=== PATIENT | female | born 1945 | race Hispanic/Latino ===

== ENCOUNTER → 2020-08-10 | Emergency (ER) | payer MEDICARE ==
[~2020-08-10] MED LIST: ASPIRIN 325 MG TABLET PO ONE; CEPH500B PO; LISI20TA24 PO; MONT10TA32 PO; NITROGLYCERIN 0.4 MG SL TAB SL PRN; NITROGLYCERIN 1GM/1 INCH PACKET TD ONE; OSEL30CA PO
[2020-08-10 21:22] VITALS: BP 160/76
[2020-08-10 21:36] LABS: BASOPHILS % (AUTO) 0.7 % (0.0-5.0); EOSINOPHILS % (AUTO) 2.6 % (0.0-8.0); HEMATOCRIT 43.7 % (36-48); LYMPHOCYTES % (AUTO) 41.1 % (21.0-51.0); MEAN CORPUSCULAR HEMOGLOBIN 31.7 pg (27.0-33.0); MEAN CORPUSCULAR HGB CONC 34.3 g/dL (32.0-36.0); MEAN CORPUSCULAR VOLUME 92.4 fL (79-99); MONOCYTES % (AUTO) 12.1 % (3.0-13.0); NEUTROPHILS % (AUTO) 43.3 % (40.0-77.0); PLATELET COUNT (AUTO) 125 K/uL (130-400); RED BLOOD CELL COUNT(AUTO) 4.73 MIL/uL (4.00-5.50); RED CELL DISTRIBUTION WIDTH 12.4 % (11.0-15.5); WHITE BLOOD COUNT (AUTO) 5.9 K/uL (4.8-10.8)
[2020-08-10 21:47] LABS: CARBON DIOXIDE 29 mmol/L (21-32); CHLORIDE 101 mmol/L (101-111); CREATININE 0.6 mg/dL (0.5-1.5); GLOMERULAR FILTR. RATE CALC 104 mL/min (>60); GLUCOSE,RANDOM 270 mg/dL (70-105); POTASSIUM 3.6 mmol/L (3.5-5.1); SODIUM SERUM 137 mmol/L (136-145); UREA NITROGEN, BLOOD 8 mg/dL (7-18)
[2020-08-10 21:51] LABS: INR 1.05 (0.85-1.15); PROTHROMBIN TIME 11.4 SEC (9.6-11.6)
[2020-08-10 21:55] LABS: ALANINE AMINOTRANSFERASE 28 U/L (12-78); ALBUMIN 3.4 g/dL (3.5-5.0); ASPARTATE AMINOTRANSFERASE 23 U/L (10-37); BILIRUBIN,TOTAL 0.6 mg/dL (0.2-1.0); CREATINE KINASE, TOTAL 31 U/L (21-232); MYOGLOBIN 13 ng/mL (10-92); TOTAL PROTEIN, SERUM 7.7 g/dL (6.0-8.3); TROPONIN I < 0.04 ng/mL (0.00-0.06)
[2020-08-10 22:00] LABS: B-TYPE NATRIURETIC PEPTIDE 53 pg/mL (0-100)
[2020-08-10 22:05] VITALS: BP 168/66
== END ==
LOC: EDH 21:08
DX: R07.89 Other chest pain (principal); R73.9 Hyperglycemia, unspecified; F03.90 Unspecified dementia, unspecified severity, without behavioral disturbance, psychotic disturbance, mood disturbance, and anxiety; Z88.5 Allergy status to narcotic agent; Z79.82 Long term (current) use of aspirin; Z79.899 Other long term (current) drug therapy
CPT/HCPCS: 36415; 71045; 80053; 82550; 83874; 83880; 84484; 85025; 85610; 93005

== ENCOUNTER → 2022-03-20 | Outpatient (CLI) | payer MEDICARE ==
[~2022-03-20] MED LIST changes: -ASPIRIN 325 MG TABLET PO ONE; +MONT-39 PO; -MONT10TA32 PO; -NITROGLYCERIN 0.4 MG SL TAB SL PRN; -NITROGLYCERIN 1GM/1 INCH PACKET TD ONE
== END | disposition home or self-care (01) ==
LOC: RAH 08:59
PROVIDERS: ATTEND Psychiatry & Neurology Neurology
DX: F03.90 Unspecified dementia, unspecified severity, without behavioral disturbance, psychotic disturbance, mood disturbance, and anxiety (principal)
CPT/HCPCS: 70551

== ENCOUNTER 2022-11-02 09:20 | Emergency (ER) | payer OTHER, MEDICARE ==
[~2022-11-02] VITALS: Ht 149.9 cm; Wt 67.1 kg
[2022-11-02] MEDS ORDERED: ACETAMINOPHEN 325 MG TAB PO ONE (11:30)
[2022-11-02 12:30] VITALS: BP 124/70; PULSE 70; RESP 18; O2SAT 98
== END 2022-11-02 12:49 | disposition home or self-care (01) ==
LOC: EDH 09:20
DX: S16.1XXA Strain of muscle, fascia and tendon at neck level, initial encounter (principal); S00.03XA Contusion of scalp, initial encounter; S60.221A Contusion of right hand, initial encounter; S80.11XA Contusion of right lower leg, initial encounter; I10 Essential (primary) hypertension; E11.9 Type 2 diabetes mellitus without complications; E78.00 Pure hypercholesterolemia, unspecified; M47.812 Spondylosis without myelopathy or radiculopathy, cervical region; Z79.899 Other long term (current) drug therapy; Z88.5 Allergy status to narcotic agent; W01.0XXA Fall on same level from slipping, tripping and stumbling without subsequent striking against object, initial encounter; Y93.89 Activity, other specified; Y92.89 Other specified places as the place of occurrence of the external cause; Y99.8 Other external cause status
CPT/HCPCS: 70450; 72125; 73130; 73502; 73610

== ENCOUNTER 2024-07-10 10:28 | Inpatient (IN) | payer OTHER, MEDICARE ==
[~2024-07-10] VITALS: Ht 157.5 cm; Wt 71.0 kg
--- NOTE | 2024-07-10 11:05 | ERN ---
General Chief Complaint: Low Back Pain/Injury Stated Complaint: BACK PAIN Time Seen by MD: 10:49 Source: patient, family, EMS History of Present Illness Initial Comments PATIENT IS A 79-YEAR-OLD FEMALE BROUGHT IN BY EMS DUE TO LOWER BACK AND UPPER BACK PAIN. PER EMS PATIENT HAS BEEN HAVING BACK PAIN SINCE SHE FELL DOWN. SHE DOES HAS A HISTORY OF DEMENTIA IN HIS CURRENTLY AT A INTERMEDIATE HAS BEEN THERE FOR THREE WEEKS. ALONG WITH THE DISCOMFORT PATIENT HE WAS COMPLAINING OF A COUGH. Allergies: Coded Allergies: codeine (Unverified Allergy, Unknown, 07/01/16) Home Meds Active Scripts Oseltamivir Phosphate (Tamiflu) 30 Mg Capsule, 30 MG PO DAILYBKFST for 5 Days, #5 CAP Prov:ZINA PERRY MD 05/01/19 Cephalexin Monohydrate (Keflex) 500 Mg Cap, 500 MG PO TID for 5 Days, #15 CAP Prov:ZINA PERRY MD 05/01/19 Reported Medications Montelukast Sodium (Montelukast Sodium) 10 Mg Tablet, 10 MG PO DAILY, TAB 04/30/19 Lisinopril (Lisinopril) 20 Mg Tablet, 20 MG PO DAILY, TAB 04/30/19 Past Medical History Past Medical History: Dementia, Diabetes-Type II, High Cholesterol Medical History Other: THROMBOCYTOPENIA Past Surgical History: Unknown Family History Family History: Negative Social History Social History: Negative Female( History) History: Not Applicable ROS Dictation CONSTITUTIONAL: NO CHILLS, NO FEVER, NO WEAKNESS, NO DIAPHORESIS, NO MALAISE. HEAD/FACE: NO SIGNS OF TRAUMA. EENT: NO EYE PAIN, NO BLURRED VISION, NO TEARING, NO DOUBLE VISION, NO EAR PAIN, NO EAR DISCHARGE, NO NOSE PAIN, NO NASAL CONGESTION, NO THROAT PAIN, NO THROAT SWELLING, NO MOUTH PAIN. RESPIRATORY: NO COUGH, NO ORTHOPNEA, NO SOB, NO STRIDOR, NO WHEEZING. CARDIOVASCULAR: NO CHEST PAIN, NO EDEMA, NO PALPITATIONS, NO SYNCOPE. GASTROINTESTINAL/ABDOMINAL: NO ABDOMINAL PAIN, NO CONSTIPATION, NO DIARRHEA, NO NAUSEA, NO VOMITING. GENITOURINARY: NO ABNORMAL DISCHARGE, NO DYSURIA, NO FREQUENT URINATION, NO HEMATURIA. NO COMPLAINTS OF PAIN IN THE GENITALS. MUSCULOSKELETAL: BACK PAIN, NO GOUT, NO JOINT PAIN, NO JOINT SWELLING, MUSCLE PAIN, NO MUSCLE STIFFNESS, NO NECK PAIN. INTEGUMENTARY: NO CHANGE IN COLOR, NO CHANGE IN HAIR/NAILS, NO DRYNESS, NO LESION, NO LUMPS, NO RASH. NEUROLOGICAL/PSYCH: NO ANXIETY, NOT DEPRESSED, NO EMOTIONAL PROBLEM, NO HEADACHE, NO NUMBNESS, NO PRE-EXISTING DEFICIT, NO HISTORY OF SEIZURES, NO TREMORS, NO WEAKNESS. HEMATOLOGIC/LYMPHATIC: NOT ANEMIC, NO HISTORY OF BLOOD CLOTS, NO APPARENT BLEEDING, NO BRUISING, GLANDS NOT SWOLLEN. ALL SYSTEMS NEGATIVE, EXCEPT NOTED. Physical Exam Physical Exam Dictation VITAL SIGNS: REVIEWED. GENERAL APPEARANCE: ALERT, ORIENTED X3, NO ACUTE DISTRESS, OBESE. HEAD AND FACE: NON-TRAUMATIC. EYES: PERRL, PINK CONJUNCTIVAS, EYELID NO TRAUMA, ANTERIOR CHAMBER CLEAR. EARS: PINNAS INTACT AND NO SIGNS OF TRAUMA OR ERYTHEMA. EAR CANALS CLEAR AND NO DISCHARGE. TMS NO ERYTHEMA. NOSE: NO DISCHARGE, NO BLEEDING. OROPHARYNX: MOUTH NORMAL, TEETH NO CARIES, TONGUE PINK. PHARYNX CLEAR, NO ERYTHEMA. TONSILS NO EXUDATES, NO ABSCESSES NOTED. MUCOUS MEMBRANE MOIST. NECK: SUPPLE, NON-TENDER, NO THYROMEGALY, NO MASSES, NO JVD, NO BRUITS. BREAST: DEFERRED. CHEST: NO TENDERNESS, NO CREPITUS, NO PARADOXICAL MOVEMENT, NO RETRACTIONS. LUNGS: CLEAR, WELL-VENTILATED, SYMMETRIC, NO RALES, NO WHEEZING, NO RHONCHI, NO STRIDOR, GOOD BREATH SOUNDS BILATERALLY. HEART: REGULAR RATE, REGULAR RHYTHM, NO MURMUR, NO GALLOPS. VASCULAR: NO PERIPHERAL EDEMA. ABDOMEN: SOFT, POSITIVE BOWEL SOUNDS, NONDISTENDED, NO GUARDING, LEFT UPPER ABDOMINAL TENDERNESS ON PALPATION, NO REBOUND, NO MASSES NO HEPATOMEGALY, NO SP LENOMEGALY, NO TEMPLETON'S SIGN, NO HERNIAS. RECTAL: DEFERRED. GENITAL: DEFERRED. NEUROLOGICAL: NORMAL SPEECH, GROSS MOTOR FUNCTION INTACT, GROSS SENSORY FUNCTION INTACT. MUSCULOSKELETAL: NECK NONTENDER, FULL RANGE OF MOTION, TRIPLE AIR VALVE TESTER, FULL RANGE OF MOTION. EXTREMITIES: NONTENDER, FULL RANGE OF MOTION. SKIN: COLOR PINK, DRY, NO TURGOR, NO RASH, NO LACERATIONS, NO ABRASIONS, NO CONTUSIONS. LYMPHATICS: DEFERRED. Results Laboratory and Microbiology Lab and Micro Result Laboratory Tests Test 07/10/24 10:55 07/10/24 12:28 White Blood Count 5.3 K/uL (4.8-10.8) Red Blood Count 3.65 MIL/uL (4.00-5.50) L Hemoglobin 12.7 g/dL (12.0-16.0) Hematocrit 36.2 % (36-48) Mean Corpuscular Volume 99.2 fL (79-99) H Mean Corpuscular Hemoglobin 34.8 pg (27.0-33.0) H Mean Corpuscular Hemoglobin Concent 35.1 g/dL (32.0-36.0) Red Cell Distribution Width 13.9 % (11.0-15.5) Platelet Count 110 K/uL (130-400) L Mean Platelet Volume 11.9 fL (7.5-10.5) H Immature Granulocyte % (Auto) 0.2 % (0-1) Neutrophils (%) (Auto) 38.5 % (40.0-77.0) L Lymphocytes (%) (Auto) 45.6 % (21.0-51.0) Monocytes (%) (Auto) 10.4 % (3.0-13.0) Eosinophils (%) (Auto) 4.7 % (0.0-8.0) Basophils (%) (Auto) 0.6 % (0.0-5.0) Neutrophils # (Auto) 2.0 K/uL (1.8-7.7) Lymphocytes # (Auto) 2.4 K/uL (1.0-4.8) Monocytes # (Auto) 0.6 K/uL (0.1-1.0) Eosinophils # (Auto) 0.25 K/uL (0.00-0.70) Basophils # (Auto) 0.03 K/uL (0.00-0.20) Absolute Immature Granulocyte (auto 0.01 K/uL (0-1) Nucleated Red Blood Cells 0.0 % (0.0-0.19) Prothrombin Time 11.6 SEC (9.6-11.6) Prothromb Time International Ratio 1.11 (0.85-1.15) Activated Partial Thromboplast Time 27.8 SEC (26.3-35.5) Sodium Level 136 mmol/L (136-145) Potassium Level 4.1 mmol/L (3.5-5.1) Chloride Level 104 mmol/L (101-111) Carbon Dioxide Level 26 mmol/L (21-32) Blood Urea Nitrogen 12 mg/dL (7-18) Creatinine 0.7 mg/dL (0.5-1.0) Glomerular Filtration Rate Calc 88 mL/min (>90) Random Glucose 154 mg/dL (70-105) H Total Calcium 8.8 mg/dL (8.5-10.1) Total Creatine Kinase 66 U/L (21-232) # Troponin I High Sensitivity 5 ng/L (4-50) B-Type Natriuretic Peptide 132 pg/mL (0-100) H Urine Color YELLOW (YELLOW) Urine Appearance CLEAR (CLEAR) Urine pH 5.5 (5.0-8.0) Urine Specific [place] 1.016 (1.001-1.031) Urine Protein NEGATIVE mg/dL (NEGATIVE) Urine Glucose (UA) NEGATIVE mg/dL (NEGATIVE) Urine Ketones NEGATIVE mg/dL (NEGATIVE) Urine Occult Blood NEGATIVE (NEGATIVE) Urine Nitrate NEGATIVE (NEGATIVE) Urine Bilirubin NEGATIVE mg/dL (NEGATIVE) Urine Urobilinogen 6 mg/dL (0.2-1.0) H Urine Leukocyte Esterase NEGATIVE Gigi/uL Urine RBC 2-5 /HPF (0-1) H Urine WBC 2-5 /HPF (0-1) H Urine Squamous Epithelial Cells RARE /HPF (0-2) Urine Bacteria None /HPF (None Seen) Labs Reviewed?: Yes EKG/XRAY/US/CT/MRI EKG Comment 07/10/2024 TIME 10:53 A.M. VENTRICULAR RATE 75 SINUS RHYTHM [place] [address] WAVE ELEVATION OR DEPRESSION CT Scan Comment [address] [address] IMAGING REPORT Signed PATIENT: ADAM LUCIO MR#: [id number] : 1945 SEX: F AGE: 79 LOCATION: [facility] ORDER 15 STATUS: REG ER REPORT#: [id number] SERVICE REASON: LUQ PAIN ORDERING PHYSICIAN: RISHI CARDOZA MD PROCEDURE: ABD PEL W - CT ABDOMEN/PELVIS W/CONTRAST CT ABDOMEN/PELVIS W/CONTRAST HISTORY: Left lower abdominal pain COMPARISON: None TECHNIQUE: Multiple sequential axial images of the abdomen and pelvis were obtained from the dome of the diaphragm through symphysis pubis. Patient was given 75 cc of Omnipaque through intravenous route. Oral contrast was not given. FINDINGS: No pleural effusion is seen bilaterally. There is no evidence of parenchymal disease or pulmonary nodule of the visualized lower lungs. Degenerative changes of the thoracolumbar spine are present. The heart is not enlarged. Liver measures 15 cm. Small hiatal hernia is seen. There are varices. Gallbladder is distended with gallstones. There is diverticulosis. The liver, spleen, adrenal glands and pancreas are unremarkable. There is no evidence of hydronephrosis bilaterally. No evidence of renal stone is seen. Fecal material is seen in the colon. There are normal size retroperitoneal and mesenteric lymph nodes. No ascites is seen. Atherosclerotic changes are present. Pelvic sidewalls are symmetric bilaterally. Bladder is well distended without wall thickening. Tiny amount of air collection is seen in the bladder. IMPRESSION: 1. Varices. Distended gallbladder with gallstones. Diverticulosis. CT was performed with one or more following dose reduction techniques: automated exposure control, adjustment of the mA and kv according to patient's size, or use of a iterative reconstruction technique. DICTATED BY: TRINI LOPEZ MD DATE: 07/10/24 1517 ELECTRONICALLY SIGNED BY: TRINI LOPEZ MD DATE: 07/10/24 1524 [facility] MDM: Differential diagnosis: Fall, abdominal pain, generalized body weakness, Rationale: Tests considered and ordered secondary to shared decision making include: labs, ECG and radiology Previous outside records reviewed: Old ER visits. Risk of complication and/or morbidity or mortality of patient management: None Medications-Per medication reconciliation Need for hospitalization: Patient does meet criteria for hospitalization. Need for emergency major/minor surgery: No There are no social concerns with this patient. Prescription drug management Prescriptions will include symptomatic care Patient's prior external medical records from other ER visits were reviewed by me as indicated. Prior testing and results from previous visits were reviewed. Prior tests were taken into account with medical decision making and resource utilization, independent historian/historians were used to obtain complete medical history. I independently interpreted the test that were performed, results were reviewed by me and considered findings on radiology if ordered. Medical management and examination interpretation discussions were had by me with other qualified healthcare professionals as indicated for the patient's care.Patient is a 79-year-old female coming in to be evaluated for left-sided abdominal pain. She states he fell down while she was being bathed and facility got an x-ray of her back no acute findings were present other imaging studies were taken no acute findings were present . With the pain patient will be admitted for ongoing evaluation and management of uncontrolled pain. Patient will be admitted under the care of hospitalist group for ongoing management. ED Course Orders Procedure Category Date Status Time 12 Lead Ekg Tracing- EKG 07/10/24 Complete Technical 10:59 Cbc With Differential LAB 07/10/24 Complete 11:01 Prothrombin Time With LAB 07/10/24 Complete INR 11:01 B-Type Natriuretic LAB 07/10/24 Complete Peptide 11:01 Chest 1vw RAD 07/10/24 Resulted 11:01 Creatine Kinase, Total LAB 07/10/24 Complete 11:01 Troponin I High LAB 07/10/24 Complete Sensitivity 11:01 Urinalysis Profile LAB 07/10/24 Complete 11:01 Partial LAB 07/10/24 Complete Thromboplastin Time 11:01 Basic Metabolic Panel LAB 07/10/24 Complete 11:01 0.9%Nacl 1000ml (Ns PHA 07/10/24 In Process 1000ml) 11:30 Ct Abdomen/Pelvis CT 07/10/24 Resulted W/Contrast 12:15 Iohexol (Omnipaque) PHA 07/10/24 Complete 12:44 Current Medications Medications (Trade) Dose Ordered Sig/Daily Route PRN Reason Start Time Stop Time Status Last Admin Dose Admin Iohexol (Omnipaque) 75 ml STK-MED ONCE IV 07/10/24 12:44 07/10/24 12:45 DC Sodium Chloride 1,000 ml @ 0 mls/hr Q0M IV 07/10/24 11:30 08/09/24 11:29 07/10/24 12:01 Vital Signs Date Time Temp Pulse Resp B/P (MAP) Pulse Ox O2 Delivery O2 Flow Rate FiO2 07/10/24 14:12 98.8 84 17 157/94 97 Room Air* 0 07/10/24 12:08 98.8 79 16 169/69 98 Room Air* 0 21 07/10/24 10:53 98.8 78 16 158/64 96 Room Air* 0 07/10/24 10:48 97.5 78 16 158/64 98 Room Air 0 DX & DISP Disposition: Inpatient Decision to Admit Time: 15:38 Departure Impression: Primary Impression: Fall Additional Impressions: Abdominal contusion, Pain management Condition: Stable Referrals: SELF,REFERRAL (PCP) RISHI CARDOZA MD July 10, 2024 11:05
[2024-07-10 11:23] LABS: BASOPHILS # (AUTO) 0.03 K/uL (0.00-0.20); BASOPHILS % (AUTO) 0.6 % (0.0-5.0); EOSINOPHILS # (AUTO) 0.25 K/uL (0.00-0.70); EOSINOPHILS % (AUTO) 4.7 % (0.0-8.0); HEMATOCRIT 36.2 % (36-48); IMMATURE GRANULOCYTE ABSOLUTE 0.01 K/uL (0-1); LYMPHOCYTES # (AUTO) 2.4 K/uL (1.0-4.8); LYMPHOCYTES % (AUTO) 45.6 % (21.0-51.0); MEAN CORPUSCULAR HEMOGLOBIN 34.8 pg (27.0-33.0); MEAN CORPUSCULAR HGB CONC 35.1 g/dL (32.0-36.0); MEAN CORPUSCULAR VOLUME 99.2 fL (79-99); MONOCYTES # (AUTO) 0.6 K/uL (0.1-1.0); MONOCYTES % (AUTO) 10.4 % (3.0-13.0); NEUTROPHILS % (AUTO) 38.5 % (40.0-77.0); PLATELET COUNT (AUTO) 110 K/uL (130-400); RED BLOOD CELL COUNT(AUTO) 3.65 MIL/uL (4.00-5.50); RED CELL DISTRIBUTION WIDTH 13.9 % (11.0-15.5); WHITE BLOOD COUNT (AUTO) 5.3 K/uL (4.8-10.8)
[2024-07-10 11:30] LABS: INR 1.11 (0.85-1.15); PROTHROMBIN TIME 11.6 SEC (9.6-11.6)
[2024-07-10 11:31] LABS: PARTIAL THROMBOPLASTIN TIME 27.8 SEC (26.3-35.5)
[2024-07-10 11:34] LABS: CREATININE 0.7 mg/dL (0.5-1.0); POTASSIUM 4.1 mmol/L (3.5-5.1)
[2024-07-10 11:44] LABS: B-TYPE NATRIURETIC PEPTIDE 132 pg/mL (0-100)
[2024-07-10] MEDS: 0.9%NACL 1000ML 1,000 ML IV SCH ×2 (12:01→17:27)
--- NOTE | 2024-07-10 12:11 | HMCIMG ---
CHEST 1VW HISTORY: Status post fall COMPARISON: 08/10/2020 FINDINGS: A frontal projection of the chest was obtained. Minimal left lung infiltrates are seen The heart is borderline enlarged. Degenerative changes are seen. No evidence of aortic calcification is seen. IMPRESSION: 1. Minimal left lung pulmonary infiltrates.
[2024-07-10 12:35] LABS: APPEARANCE,URINE CLEAR (CLEAR); COLOR,URINE YELLOW (YELLOW); PH,URINE 5.5 (5.0-8.0); PROTEIN,URINE NEGATIVE (NEGATIVE)
[2024-07-10 12:36] LABS: BILIRUBIN,URINE NEGATIVE (NEGATIVE); GLUCOSE, URINE (UA) NEGATIVE (NEGATIVE); KETONES,URINE NEGATIVE (NEGATIVE); LEUKOCYTE ESTERASE ,URINE NEGATIVE Leu/uL (NEGATIVE); NITRATE,URINE NEGATIVE (NEGATIVE); OCCULT BLOOD,URINE NEGATIVE (NEGATIVE); UROBILINOGEN,URINE 6 mg/dL (0.2-1.0)
[2024-07-10 12:38] LABS: ADD UA MICROSCOPIC YES
[2024-07-10 12:40] LABS: MUCUS,URINE RARE LPF (None Seen); SQUAMOUS EPITHELIAL CELL,UR RARE /HPF (0-2)
[2024-07-10] MEDS ORDERED: IOHEXOL-350 75 ML VIAL IV ONE (12:44)
--- NOTE | 2024-07-10 13:17 | EKG ---
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
--- NOTE | 2024-07-10 15:24 | HMCIMG ---
CT ABDOMEN/PELVIS W/CONTRAST HISTORY: Left lower abdominal pain COMPARISON: None TECHNIQUE: Multiple sequential axial images of the abdomen and pelvis were obtained from the dome of the diaphragm through symphysis pubis. Patient was given 75 cc of Omnipaque through intravenous route. Oral contrast was not given. FINDINGS: No pleural effusion is seen bilaterally. There is no evidence of parenchymal disease or pulmonary nodule of the visualized lower lungs. Degenerative changes of the thoracolumbar spine are present. The heart is not enlarged. Liver measures 15 cm. Small hiatal hernia is seen. There are varices. Gallbladder is distended with gallstones. There is diverticulosis. The liver, spleen, adrenal glands and pancreas are unremarkable. There is no evidence of hydronephrosis bilaterally. No evidence of renal stone is seen. Fecal material is seen in the colon. There are normal size retroperitoneal and mesenteric lymph nodes. No ascites is seen. Atherosclerotic changes are present. Pelvic sidewalls are symmetric bilaterally. Bladder is well distended without wall thickening. Tiny amount of air collection is seen in the bladder. IMPRESSION: 1. Varices. Distended gallbladder with gallstones. Diverticulosis. CT was performed with one or more following dose reduction techniques: automated exposure control, adjustment of the mA and kv according to patient's size, or use of a iterative reconstruction technique.
[2024-07-10] MEDS ORDERED: ZOLPidem TARTrate 5 MG TAB PO PRN (16:00)
[2024-07-10] MEDS ORDERED: DEXTROSE 50%-WATER 50 ML DISP.SYRIN IV PRN (16:00)
[2024-07-10] MEDS ORDERED: acetaMINOPHEN 325 MG TAB PO PRN (16:00)
[2024-07-10] MEDS ORDERED: GLUCAGON 1MG KIT 1 MG ML IM PRN (16:00)
[2024-07-10] MEDS ORDERED: ondanSETRON 4MG INJ IV PRN (16:00)
[2024-07-10] MEDS ORDERED: DiphenhydrAMINE HCL 50 MG/ML VIAL IV PRN (16:00)
[2024-07-10] MEDS ORDERED: MAG/ALUM/SIMETH 30 ML UDCUP PO PRN (16:00)
[2024-07-10] MEDS ORDERED: NITROGLYCERIN 0.4 MG SL TAB SL PRN (16:00)
[2024-07-10] MEDS ORDERED: FAMOTIDINE 20MG VIAL IV PRN (16:00)
--- NOTE | 2024-07-10 16:24 | HP ---
[facility] HISTORY AND PHYSICAL Date of Service: July 10, 2024 Time of Service: 16:10 PCP: Dr Nelson from [facility] Admitting: Dr Dailey, Allergies: Codeine HISTORY OF PRESENT ILLNESS: [Patient is 79-year-old female with a past medical history of influenza, pneumonia, diabetes, hypertension, arthritis, osteoporosis, bronchitis, asthma, mild dementia, thrombocytopenia, who was brought to emergency department by EMS s/p fall at [facility]. Patient is complaining of headaches, upper and lower back and bilateral hip pain. Patient stated that she was taking a bath when she slipped and she fell down. Patient has been a resident of the alf for the past about three weeks due to dementia. No family member available at the bedside at this moment. Sodium 136 potassium 4.1 CO2 26 BUN 12 creatinine 0.7 GFR 88 glucose 154 calcium 8.8 CK 66 WBC 5.3 hemoglobin 12.7 hematocrit 36.2 platelets 110. UA negative for leukocytosis or nitrates. Chest x-ray showed minimal pulmonary infiltrate. CT abdomen/pelvis showed varices, distended gallbladder with gallstones, diverticulosis. Patient will be admitted under hospitalist care for further evaluation/recommendation. We will order HIDA scan to evaluate for gallstones. CT head brain, cervical, thoracic and lumbar spine CT was ordered as well. We will order bilateral hip x-ray. We will hold off of surgeon at this moment. We will wait for HIDA scan results 1st. Patient agrees with the further plan. A.m. labs ] REVIEW OF SYSTEMS CONSTITUTIONAL: Denies fevers, chills, or night sweats. No unintentional weight loss reported. NEUROLOGICAL: Denies headache, amaurosis fugax, motor weakness, sensory deficit, vertigo/spinning sensation, gait abnormalities, or tremors. ENT: No hearing loss, otalgia, otorrhea, rhinitis, rhinorrhea, hoarseness, or sore throat. CARDIOVASCULAR: Denies any exertional angina, dyspnea on exertion, orthopnea, paroxysmal nocturnal dyspnea, palpitations, life-threatening arrhythmias, claudication. PULMONARY: Denies any shortness of breath, cough, phlegm/sputum, hemoptysis, pleuritic chest pain. SLEEP: Denies morning headaches, daytime somnolence or napping. Denies difficulty falling asleep, staying asleep, waking from sleep. Denies knowledge of snoring. GASTROINTESTINAL: Denies any type of dysphagia to either liquids or solids. Denies nausea, vomiting, pyrosis, early satiety, diarrhea, constipation, or changes in stool consistency or caliber. Denies coffee-ground emesis, hematemesis, hematochezia, or melanotic stools. Complains of abdominal pain GENITOURINARY: Denies frequency, urgency, nocturia, hematuria or incontinence (Storage/Irritative symptoms.) Low urinary stream, straining to void, urinary intermittency or hesitancy, splitting of the voiding stream, terminal dribbling. ENDOCRINOLOGIC: Denies polyuria, polydipsia, polyphagia or heat/cold intolerances. HEMATOLOGIC: Denies thrombophilia/previous clots, or coagulopathy/bleeding disorders. ONCOLOGIC: Denies personal history of malignancy. DERMATOLOGIC: Denies rashes or pruritus. PSYCHIATRIC: Denies any suicidal or homicidal ideation. Denies hallucinations. PAST MEDICAL HISTORY: [ Varices, gallstones, diverticulosis, influenza, pneumonia, diabetes, hypertension, arthritis, osteoporosis, bronchitis, asthma, dementia, thrombocytopenia ] PAST SURGICAL HISTORY: [ None ] PAST SOCIAL HISTORY: [ Patient denies smoking. Patient denies any drug illicit. Patient denies any alcohol illicit ] FAMILY HISTORY: [ Patient is resident of [facility], independent ] Coded Allergies: codeine (Unverified Allergy, Unknown, 07/01/16) PHYSICAL EXAM GENERAL APPEARANCE: The patient is awake, alert, and oriented, in no acute cardiopulmonary distress. NEUROLOGICAL: Cranial nerves II-XII grossly intact. Motor is 5/5 in bilateral upper and lower extremities proximal to distal. No sensory deficits. Patient complains of headaches. Patient complains of upper and lower back pain. Patient complains of bilateral hip pain HEENT: Face is symmetric. Pupils are equal and reactive. Extraocular movements are intact. NECK: Supple. No JVD. No thyromegaly. No submental, submandibular, pre- /postauricular, occipital or supraclavicular lymphadenopathy. CHEST: Normal chest expansion. No Telemetry. LUNGS: Absence of any rales, rhonchi or any wheezing. CARDIOVASCULAR: Regular. S1 and S2 normal. No appreciable rubs, murmurs or gallops. ABDOMEN: Soft, nontender, and nondistended. There is no rebound, voluntary guarding, or rigidity. : Deferred. No Chavez. EXTREMITIES: Non-edematous and not cyanotic. No clubbing. Good capillary refill. SKIN: No skin breakdown. Vital Sign (Last 24 Hours) 07/10/24 14:12 Temp 98.8 Pulse 84 Resp 17 B/P (MAP) 157/94 Pulse Ox 97 O2 Delivery Room Air* O2 Flow Rate 0 FiO2 21 LABS: Laboratory: Test 07/10/24 12:28 07/10/24 10:55 Range/Units Urine Color YELLOW YELLOW Urine Appearance CLEAR CLEAR Urine pH 5.5 5.0-8.0 Urine Specific [place] 1.016 1.001-1.031 Urine Protein NEGATIVE NEGATIVE mg/dL Urine Glucose (UA) NEGATIVE NEGATIVE mg/dL Urine Ketones NEGATIVE NEGATIVE mg/dL Urine Occult Blood NEGATIVE NEGATIVE Urine Nitrate NEGATIVE NEGATIVE Urine Bilirubin NEGATIVE NEGATIVE mg/dL Urine Urobilinogen 6 H 0.2-1.0 mg/dL Urine Leukocyte Esterase NEGATIVE NEGATIVE Gigi/uL Urine RBC 2-5 H 0-1 /HPF Urine WBC 2-5 H 0-1 /HPF Urine Squamous Epithelial Cells RARE 0-2 /HPF Urine Bacteria None None Seen /HPF White Blood Count 5.3 4.8-10.8 K/uL Red Blood Count 3.65 L 4.00-5.50 MIL/uL Hemoglobin 12.7 12.0-16.0 g/dL Hematocrit 36.2 36-48 % Mean Corpuscular Volume 99.2 H 79-99 fL Mean Corpuscular Hemoglobin 34.8 H 27.0-33.0 pg Mean Corpuscular Hemoglobin Concent 35.1 32.0-36.0 g/dL Red Cell Distribution Width 13.9 11.0-15.5 % Platelet Count 110 L 130-400 K/uL Mean Platelet Volume 11.9 H 7.5-10.5 fL Immature Granulocyte % (Auto) 0.2 0-1 % Neutrophils (%) (Auto) 38.5 L 40.0-77.0 % Lymphocytes (%) (Auto) 45.6 21.0-51.0 % Monocytes (%) (Auto) 10.4 3.0-13.0 % Eosinophils (%) (Auto) 4.7 0.0-8.0 % Basophils (%) (Auto) 0.6 0.0-5.0 % Neutrophils # (Auto) 2.0 1.8-7.7 K/uL Lymphocytes # (Auto) 2.4 1.0-4.8 K/uL Monocytes # (Auto) 0.6 0.1-1.0 K/uL Eosinophils # (Auto) 0.25 0.00-0.70 K/uL Basophils # (Auto) 0.03 0.00-0.20 K/uL Absolute Immature Granulocyte (auto 0.01 0-1 K/uL Nucleated Red Blood Cells 0.0 0.0-0.19 % Prothrombin Time 11.6 9.6-11.6 SEC Prothromb Time International Ratio 1.11 0.85-1.15 Activated Partial Thromboplast Time 27.8 26.3-35.5 SEC Sodium Level 136 136-145 mmol/L Potassium Level 4.1 3.5-5.1 mmol/L Chloride Level 104 101-111 mmol/L Carbon Dioxide Level 26 21-32 mmol/L Blood Urea Nitrogen 12 7-18 mg/dL Creatinine 0.7 0.5-1.0 mg/dL Glomerular Filtration Rate Calc 88 >90 mL/min Random Glucose 154 H 70-105 mg/dL Total Calcium 8.8 8.5-10.1 mg/dL Total Creatine Kinase 66 # 21-232 U/L Troponin I High Sensitivity 5 4-50 ng/L B-Type Natriuretic Peptide 132 H 0-100 pg/mL Current Medications Medications (Trade) Dose Ordered Sig/Daily Route PRN Reason Start Time Stop Time Status Last Admin Dose Admin Acetaminophen (TYLenol 325MG TAB) 650 mg Q4H PRN PO MILD PAIN (1-3) 07/10/24 16:00 08/09/24 15:59 Acetaminophen (TYLenol 325MG TAB) 650 mg Q6H PRN PO MILD PAIN (1-3) 07/10/24 16:00 08/09/24 15:59 Acetaminophen (TYLenol 325MG TAB) 650 mg Q6H PRN PO TEMPERATURE GREATER THAN 101.5 07/10/24 16:00 08/09/24 15:59 Al Hydroxide/Mg Hydroxide (MAALox PLUS 30ML) 30 ml Q6H PRN PO INDIGESTION 07/10/24 16:00 08/09/24 15:59 Dextrose (D50w) 50 ml AD PRN IV HYPOGLYCEMIA PROTOCOL 07/10/24 16:00 08/09/24 15:59 Diphenhydramine HCl (BENAdryl INJ) 25 mg Q6H PRN IV SEVERE ITCHING/RASH 07/10/24 16:00 08/09/24 15:59 Famotidine (Pepcid 20mg Vial) 20 mg BID IV 07/10/24 21:00 08/09/24 20:59 Famotidine (Pepcid 20mg Vial) 20 mg BID PRN IV NAUSEA/VOMITING 07/10/24 16:00 08/09/24 15:59 Glucagon (Glucagon 1mg Kit) 1 mg AD PRN IM HYPOGLYCEMIA PROTOCOL 07/10/24 16:00 08/09/24 15:59 Guaifenesin/ Dextromethorphan (RobiTUSSin DM 200/20MG 10ML) 10 ml Q4H PRN PO COUGH 07/10/24 16:00 08/09/24 15:59 Hydralazine HCl (APRESOLine 20MG INJ) 10 mg Q6H PRN IV For:SBP above 160;DBP above 90 07/10/24 16:00 08/09/24 15:59 Insulin Human Regular (humuLIN R 100 UNIT/ML 3ML) INSULIN SLIDING SCAL... ACHS SQ 07/10/24 16:30 08/09/24 16:29 Ketorolac Tromethamine (toRADol) 15 mg Q8H PRN IV MODERATE PAIN (4-6) 07/10/24 16:00 07/15/24 15:59 Lactulose (Constulose 20gm/ 30ml Udcup) 20 gm BID PRN PO CONSTIPATION 07/10/24 16:00 08/09/24 15:59 Magnesium Sulfate 50 ml @ 0 mls/hr PROTOCOL PRN IV other 07/10/24 16:00 08/09/24 15:59 Nitroglycerin (Nitrostat) 0.4 mg PROTOCOL PRN SL CHEST PAIN 07/10/24 16:00 08/09/24 15:59 Ondansetron HCl (zoFRAN 4MG INJ) 4 mg Q6H PRN IV NAUSEA/VOMITING 07/10/24 16:00 08/09/24 15:59 Oxycodone/ Acetaminophen (perCOCET) 1 tab Q6H PRN PO SEVERE PAIN (7-10) 07/10/24 16:00 07/17/24 15:59 Sodium Chloride 1,000 ml @ 0 mls/hr Q0M IV 07/10/24 11:30 08/09/24 11:29 07/10/24 12:01 1,000 MLS/HR Sodium Chloride 1,000 ml @ 80 mls/hr [id number] IV 07/10/24 16:00 08/09/24 15:59 Zolpidem Tartrate (AmbIEN) 5 mg HS PRN PO INSOMNIA 07/10/24 16:00 08/09/24 15:59 DIAGNOSTICS / RADIOLOGY: [ ] ASSESSMENT: [ S/p fall POA Acute pain to upper, lower back, abdomen, bilateral hips POA Uncontrolled hypertension POA Multifactorial anemia POA Thrombocytopenia POA Uncontrolled diabetes mellitus type 2 with hypoglycemia POA Varices per CT abdomen/pelvis POA Distended gallbladder with gallstones per CT abdomen/pelvis POA Diverticulosis per CT abdomen/pelvis POA Debilitation POA Arthritis POA Osteoporosis POA Became this POA Asthma POA Dementia POA ] PLAN: [ Admit to: Medical-surgical floor Consults: None at this moment. We will wait for HIDA scan results and x-rays Antibiotics: None at this moment Tests: Bilateral hip x-ray. Lumbar, thoracic, cervical CT spine. CT head brain. HIDA scan NEURO: CT head brain pending Minimize central acting medications as possible. Fall Precautions. Well lighted room through the day and minimize interruptions through the night to prevent acute delirium. PULMONARY: Chest x-ray minimal pulmonary infiltrate Supplemental 02 as needed BiPAP as necessary, for respiratory distress Titrate Fio2 to keep Spo2 > or = 90% DuoNebs and CPT as needed IS hourly while awake for pulmonary hygiene Out of bed to chair as tolerated VAP Bundle Maintain aspiration precautions at all times CARDIOVASCULAR: Follow hemodynamics. Vital signs per facility protocol GI & NUTRITION: HIDA scan pending CT abdomen/pelvis showed varices, distended gallbladder with gallstones, diverticulosis Continue nutritional support Aspirations precautions Prokinetic agents and laxatives as needed KIDNEYS & ELECTROLYTES: Strict monitoring of intake and output Daily weights Avoid nephrotoxic agents Monitor electrolytes and replace as needed Goal urine output of 30mL/hr or 0.5mL/kg/hr Medications to be dosed according to renal function. Avoid contrast if possible ENDOCRINE: Maintain blood glucose between 100-180 at all times. Insulin sliding scale for blood glucose management Hypoglycemia and hyperglycemia protocol in place INFECTIOUS DISEASE: Trend temperature, WBC and procalcitonin level Follow cultures, deescalate antibiotics as soon as possible. Panculture if new onset fever HEMATOLOGY & COAGULATION: Monitor H&H. Keep Hgb > 7 Transfuse 1 unit of PRBC for Hgb < 7 Transfuse 1 pack of platelets of platelets < 20, 000 Watch for any signs and symptoms of bleeding SKIN: Pressure ulcer prevention per facility protocol Specialty mattress as needed Bilateral hip x-ray pending Lumbar CT spine pending Thoracic CT spine pending Cervical CT spine pending Treatment plan discussed with patient and family at the bedside Medications to be reconciled once obtained by patient and/or family and available to be reconciled in computer p.r.n. 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 Which of the following were discussed? Hospice Care - Yes / No Therapeutic options - Yes / No Advance Directives - Yes / No Other discussions - 2. Discussed with who? Patient, patient has a history of dementia no family a vailable at the bedside 3. Voluntary nature of this service was explained to the patient? Yes / No 4. Amount of time spent - __ more than 35 minutes 5. Reviewed by Physician? (if this service was performed by NPP) Yes / No ATTESTATION BY PHYSICIAN I have seen and examined the patient. I reviewed the documentation, medical decision making, and treatment plan as noted by the mid-level provider above. I agree with the findings and plan of care. DAVID Leroy MD [employer] OPERATOR July 10, 2024 16:24
[2024-07-10] MEDS: INSULIN humuLIN R 100 UNIT/ML 3ML SQ SCH (16:30)
--- NOTE | 2024-07-10 17:02 | HMCIMG ---
CT HEAD/BRAIN W/O CONTRAST HISTORY: Status post fall COMPARISON: None TECHNIQUE: Multiple sequential axial images of the head were obtained from the base of the skull through vertex. Patient was not given contrast through intravenous route. FINDINGS: The ventricles and extraventricular CSF spaces are nondilated for patient's age. There is no midline shift, mass effect or herniation. No acute intracranial bleed is seen. Visualized portion of the paranasal sinuses are grossly within normal limits. IMPRESSION: 1. No acute intracranial bleed is seen. 2. Atrophy with white matter changes. CT was performed with one or more following dose reduction techniques: automated exposure control, adjustment of the mA and kv according to patient's size, or use of a iterative reconstruction technique.
--- NOTE | 2024-07-10 17:03 | HMCIMG ---
CT CERVICAL SPINE W/O CONTRAST HISTORY: Status post fall COMPARISON: None TECHNIQUE: Multiple sequential axial images of the cervical spine were obtained including post processing sagittal and coronal reconstruction images. Patient was not given contrast through intravenous route. FINDINGS: There are degenerative changes in cervical spine spondylosis. Disc space narrowing is seen at C5-6 level. There is straightening of normal lordotic cervical curvature which may be related to muscle spasm or positioning. There is no loss of vertebral height. Evaluation for disc and cord pathology is limited with CT study. No evidence of fracture or dislocation is seen. IMPRESSION: 1. No fracture is seen. DJD. CT was performed with one or more following dose reduction techniques: automated exposure control, adjustment of the mA and kv according to patient's size, or use of a iterative reconstruction technique.
--- NOTE | 2024-07-10 17:05 | NUR ---
SPEECH TRIGGER COMPLETED / FALL Pt IS A 79 Y.O. FEMALE ADMITTED SECONDARY TO S/P FALL. Pt HAS A PAST MEDICAL HISTORY SIGNIFICANT FOR INFLUENZA, PNA, DM, HTN, ARTHRITIS, OSTEOPOROSIS, BRONCHITIS, AND ASTHMA. PATIENT PRESENTED WITH MILD LEFT LUNG PULMONARY INFILTRATES ON MOST RECENT CHEST X-RAY (07/10/2024). Pt CURRENTLY ON CONSISTENT CARB DIET (REGULAR TEXTURE AND THIN LIQUIDS). PER NURSE NIKI, Pt WAS NPO THIS AM; NO CONCERNS OF S/S OF ASPIRATION REPORTED AT THIS TIME. PLEASE REQUEST SPEECH THERAPY SERVICES FOR SKILLED BEDSIDE SWALLOW EVALUATION IF Pt PRESENTS WITH +S/S OF ASPIRATION SUCH COUGH RESPONSE, THROAT CLEAR, OR WET VOCAL QUALITY DURING ORAL INTAKE. ALL QUESTIONS ANSWERED AT THIS TIME. Addendum: 07/10/[address] [facility] SANTIAGO Amended: Links added.
--- NOTE | 2024-07-10 17:06 | HMCIMG ---
CT THORACIC SPINE W/O CONTRAST, CT LUMBAR SPINE W/O CONTRAST, HIP BILAT 2VW HISTORY: Status post fall COMPARISON: None TECHNIQUE: Multiple sequential axial images of the thoracic spine and lumbar spine were obtained including post processing sagittal and coronal reconstruction images. Patient was not given contrast through intravenous route. FINDINGS: Compression fractures are seen and slight irregularity involving the entire thoracic spine worse in the T11 and T12 with 40% and 60% respectively. Bony osteopenia is seen. There is levoscoliosis of the lumbar spine. Evaluation for disc and cord pathology is limited with CT study. There are degenerative changes with spondylosis. IMPRESSION: 1. Compression fractures are seen throughout the thoracic spine worse at T11 and T12 as described above. Age is indeterminate. Clinical correlation CT was performed with one or more following dose reduction techniques: automated exposure control, adjustment of the mA and kv according to patient's size, or use of a iterative reconstruction technique.
[2024-07-10] MEDS: hydrALAZine 20MG/ML VIAL IV PRN (18:25)
[2024-07-10] MEDS: ketOROlac 15MG/ML VIAL (15MG/ML) IV PRN (18:26)
[2024-07-10] MEDS ORDERED: LORA10TA7 PO (18:35)
[2024-07-10] MEDS ORDERED: MULT-1192 PO (18:35)
[2024-07-10] MEDS ORDERED: METF-446 PO (18:35)
[2024-07-10] MEDS ORDERED: ROSU5TAB51 PO (18:35)
[2024-07-10] MEDS ORDERED: FOLI0.8C PO (18:35)
[2024-07-10] MEDS ORDERED: AMLO-257 PO (18:35)
[2024-07-10] MEDS ORDERED: MEMA5TAB16 PO (18:35)
[2024-07-10] MEDS ORDERED: MEGE400O40 PO (18:35)
[2024-07-10] MEDS ORDERED: HYDR12.54 PO (18:35)
--- NOTE | 2024-07-10 18:35 | NUR ---
HOME MEDICATIONS UPDATED .
[2024-07-10 18:59] LABS: INFLUENZA TYPE A Negative For Type A (NEGATIVE); INFLUENZA TYPE B Negative For Type B (NEGATIVE)
--- NOTE | 2024-07-10 21:08 | NUR ---
PATIENT TAKEN FOR HIDA SCAN
--- NOTE | 2024-07-10 21:57 | NUR ---
REPORT GIVEN TO ALYSSIA PFEIFFER, [facility]
--- NOTE | 2024-07-10 22:19 | NUR ---
[facility]
[2024-07-10 22:30] VITALS: BP 154/55; PULSE 86; RESP 20; TEMP 98.1
[2024-07-10] MEDS: FAMOTIDINE 20MG VIAL IV SCH (23:06)
--- NOTE | 2024-07-10 23:16 | NUR ---
ADMIT Patient admitted from ER. Vitals stable. Alertx2. States she is unable to ambulate due to recent fall and weakness. Normal Saline at 80 ml/hr to right hand 20 g. IV patent and intact. 129 blood glucose. Denies pain. denies shortness of breath. Educated on fall risk precautions and use of call light, verbalized understanding. Call light within reach. Bed alarm on.
--- NOTE | 2024-07-11 00:28 | HMCIMG ---
NM HIDA WITH EF/CCK REASON: gallstones. COMPARISON: None TECHNIQUE: Hepatobiliary imaging study was performed with 7 mCi of technetium Choletec through intravenous route. 3 hour delayed images were obtained. FINDINGS: Normal visualization of bowel activity is noted. Gallbladder activity is not seen at the 3 hour delay images. IMPRESSION: Findings suspicious for acute cholecystitis in the proper clinical setting.
[2024-07-11 02:12] LABS: HEMOGLOBIN A1C 5.6 % (4.0-6.0)
[2024-07-11 04:00] VITALS: BP 170/64; PULSE 79; RESP 20; TEMP 98.4
[2024-07-11 04:58] LABS: BASOPHILS # (AUTO) 0.03 K/uL (0.00-0.20); BASOPHILS % (AUTO) 0.6 % (0.0-5.0); EOSINOPHILS # (AUTO) 0.36 K/uL (0.00-0.70); EOSINOPHILS % (AUTO) 7.2 % (0.0-8.0); HEMATOCRIT 36.6 % (36-48); IMMATURE GRANULOCYTE ABSOLUTE 0.02 K/uL (0-1); LYMPHOCYTES # (AUTO) 2.2 K/uL (1.0-4.8); LYMPHOCYTES % (AUTO) 43.5 % (21.0-51.0); MEAN CORPUSCULAR HEMOGLOBIN 33.9 pg (27.0-33.0); MEAN CORPUSCULAR HGB CONC 34.4 g/dL (32.0-36.0); MEAN CORPUSCULAR VOLUME 98.4 fL (79-99); MONOCYTES # (AUTO) 0.6 K/uL (0.1-1.0); MONOCYTES % (AUTO) 11.8 % (3.0-13.0); NEUTROPHILS # (AUTO) 1.8 K/uL (1.8-7.7); NEUTROPHILS % (AUTO) 36.5 % (40.0-77.0); PLATELET COUNT (AUTO) 107 K/uL (130-400); RED BLOOD CELL COUNT(AUTO) 3.72 MIL/uL (4.00-5.50); RED CELL DISTRIBUTION WIDTH 13.6 % (11.0-15.5)
[2024-07-11 05:00] VITALS: BP 154/48; PULSE 87
[2024-07-11 05:17] LABS: ALBUMIN 2.5 g/dL (3.5-5.0); BILIRUBIN,DIRECT 0.5 mg/dL (0.0-0.3); BILIRUBIN,TOTAL 1.4 mg/dL (0.2-1.0); CREATININE 0.6 mg/dL (0.5-1.0); MAGNESIUM 1.5 mg/dL (1.80-2.40); POTASSIUM 3.5 mmol/L (3.5-5.1); TOTAL PROTEIN, SERUM 7.3 g/dL (6.0-8.3)
[2024-07-11] MEDS: LACTATED RINGERS IV ONE (05:51)
[2024-07-11] MEDS ORDERED: ZOSYN 3.375GM +NS 50ML IV SCH (06:00)
[2024-07-11 07:50] VITALS: BP 136/57; PULSE 90; RESP 18; TEMP 97.7
[2024-07-11] MEDS: LORATAdine 10 mg 10 MG TABLET PO SCH (07:54)
[2024-07-11] MEDS: PoTASSium chloRIDE 20MEQ ER 20 MEQ ERTAB PO ONE (07:54)
[2024-07-11] MEDS: FOLic ACID 1 MG TABLET PO SCH (07:55)
[2024-07-11] MEDS: amLODIPine 5 MG TAB PO SCH (07:55)
[2024-07-11] MEDS: MULTIVITAMIN TABLET PO SCH (07:55)
[2024-07-11] MEDS: MEGESTROL 400 MG/10 ML UDCUP PO SCH (07:56)
[2024-07-11] MEDS: ZOSYN 3.375GM +NS 50ML IV SCH (07:58)
[2024-07-11] MEDS: hydroCHLOROthiazide 25 MG TABLET PO SCH (08:00)
--- NOTE | 2024-07-11 10:11 | PN ---
[facility] PROGRESS NOTE Date of Service: July 11, 2024 Time of Service: 10:[address] Dailey SUBJECTIVE: [07/10 [Patient is 79-year-old female with a past medical history of influenza, pneumonia, diabetes, hypertension, arthritis, osteoporosis, bronchitis, asthma, mild dementia, thrombocytopenia, who was brought to emergency department by EMS [facility]. Patient is complaining of headaches, upper and lower back and bilateral hip pain. Patient stated that she was taking a bath when she slipped and she fell down. Patient has [facility] a [facility] for the past about three weeks due to dementia. No family member available at the bedside at this moment. Sodium 136 potassium 4.1 CO2 26 BUN 12 creatinine 0.7 GFR 88 glucose 154 calcium 8.8 CK 66 WBC 5.3 hemoglobin 12.7 hematocrit 36.2 platelets 110. UA negative for leukocytosis or nitrates. Chest x-ray showed minimal pulmonary infiltrate. CT abdomen/pelvis showed varices, distended gallbladder with gallstones, diverticulosis. Patient will be admitted under hospitalist care for further evaluation/recommendation. We will order HIDA scan to evaluate for gallstones. CT head brain, cervical, thoracic and lumbar spine CT was ordered as well. We will order bilateral hip x-ray. We will hold off of surgeon at this moment. We will wait for HIDA scan results 1st. Patient agrees with the further plan. A.m. labs 07/11 patient was seen by nurse practitioner and physician during rounding in room 406. HIDA scan came back positive for acute cholecystitis. We will consult surgeon Dr. Cordon who is on-call today for possible cholecystectomy. Patient is still complains to abdominal pain. Abdomen is very rigid and painful to touch. CT head brain was negative. CT cervical, thoracic and lumbar was negative as well we are pending bilateral hip x-ray for now. Son was sitting at the bedside next to the patient stating that normally at home patient takes tramadol 25 mg every 8 hours for chronic back pain. We will order above-stated medication. On CT abdomen/pelvis versus were showed with some diverticulosis. Patient follows GI Dr. Lozano we will consult him as well for further recommendations. Patient's potassium today is 3.5 patient will receive 40 mEq of potassium. Magnesium 1.5 patient receive 2 g of magnesium. We will continue to monitor patient in the meantime. A.m. labs] REVIEW OF SYSTEMS CONSTITUTIONAL: Denies fevers, chills, or night sweats. No unintentional weight loss reported. NEUROLOGICAL: Denies headache, amaurosis fugax, motor weakness, sensory deficit, vertigo/spinning sensation, gait abnormalities, or tremors. ENT: No hearing loss, otalgia, otorrhea, rhinitis, rhinorrhea, hoarseness, or sore throat. CARDIOVASCULAR: Denies any exertional angina, dyspnea on exertion, orthopnea, paroxysmal nocturnal dyspnea, palpitations, life-threatening arrhythmias, claudication. PULMONARY: Denies any shortness of breath, cough, phlegm/sputum, hemoptysis, pleuritic chest pain. SLEEP: Denies morning headaches, daytime somnolence or napping. Denies difficulty falling asleep, staying asleep, waking from sleep. Denies knowledge of snoring. GASTROINTESTINAL: Denies any type of dysphagia to either liquids or solids. Denies nausea, vomiting, pyrosis, early satiety, diarrhea, constipation, or changes in stool consistency or caliber. Denies coffee-ground emesis, hematemesis, hematochezia, or melanotic stools. Complains of abdominal pain GENITOURINARY: Denies frequency, urgency, nocturia, hematuria or incontinence (Storage/Irritative symptoms.) Low urinary stream, straining to void, urinary intermittency or hesitancy, splitting of the voiding stream, terminal dribbling. ENDOCRINOLOGIC: Denies polyuria, polydipsia, polyphagia or heat/cold intolerances. HEMATOLOGIC: Denies thrombophilia/previous clots, or coagulopathy/bleeding disorders. ONCOLOGIC: Denies personal history of malignancy. DERMATOLOGIC: Denies rashes or pruritus. PSYCHIATRIC: Denies any suicidal or homicidal ideation. Denies hallucinations. PHYSICAL EXAM GENERAL APPEARANCE: The patient is awake, alert, and oriented, in no acute cardiopulmonary distress. NEUROLOGICAL: Cranial nerves II-XII grossly intact. Motor is 5/5 in bilateral upper and lower extremities proximal to distal. No sensory deficits. Patient complains of headaches. Patient complains of upper and lower back pain. Patient complains of bilateral hip pain HEENT: Face is symmetric. Pupils are equal and reactive. Extraocular movements are intact. NECK: Supple. No JVD. No thyromegaly. No submental, submandibular, pre- /postauricular, occipital or supraclavicular lymphadenopathy. CHEST: Normal chest expansion. No Telemetry. LUNGS: Absence of any rales, rhonchi or any wheezing. CARDIOVASCULAR: Regular. S1 and S2 normal. No appreciable rubs, murmurs or gallops. ABDOMEN: Soft, nontender, and nondistended. There is no rebound, voluntary guarding, or rigidity. : Deferred. No Chavez. EXTREMITIES: Non-edematous and not cyanotic. No clubbing. Good capillary refill. SKIN: No skin breakdown. Vital Signs (last 8hr) Date Time Temp Pulse Resp B/P (MAP) Pulse Ox O2 Delivery O2 Flow Rate FiO2 07/11/24 07:50 97.7 90 18 136/57 96 Room Air 21 07/11/24 05:00 87 154/48 07/11/24 04:00 98.4 79 20 170/64 98 Room Air LABS: Laboratory: Test 07/11/24 09:20 07/11/24 05:38 07/11/24 04:40 07/10/24 18:20 Range/Units Lactic Acid Level 2.9 H 0.8-2.5 mmol/L Whole Blood Glucose 125 H 70-110 MG/DL White Blood Count 5.0 4.8-10.8 K/uL Red Blood Count 3.72 L 4.00-5.50 MIL/uL Hemoglobin 12.6 12.0-16.0 g/dL Hematocrit 36.6 36-48 % Mean Corpuscular Volume 98.4 79-99 fL Mean Corpuscular Hemoglobin 33.9 H 27.0-33.0 pg Mean Corpuscular Hemoglobin Concent 34.4 32.0-36.0 g/dL Red Cell Distribution Width 13.6 11.0-15.5 % Platelet Count 107 L 130-400 K/uL Mean Platelet Volume 11.5 H 7.5-10.5 fL Immature Granulocyte % (Auto) 0.4 0-1 % Neutrophils (%) (Auto) 36.5 L 40.0-77.0 % Lymphocytes (%) (Auto) 43.5 21.0-51.0 % Monocytes (%) (Auto) 11.8 3.0-13.0 % Eosinophils (%) (Auto) 7.2 0.0-8.0 % Basophils (%) (Auto) 0.6 0.0-5.0 % Neutrophils # (Auto) 1.8 1.8-7.7 K/uL Lymphocytes # (Auto) 2.2 1.0-4.8 K/uL Monocytes # (Auto) 0.6 0.1-1.0 K/uL Eosinophils # (Auto) 0.36 0.00-0.70 K/uL Basophils # (Auto) 0.03 0.00-0.20 K/uL Absolute Immature Granulocyte (auto 0.02 0-1 K/uL Nucleated Red Blood Cells 0.0 0.0-0.19 % Sodium Level 137 136-145 mmol/L Potassium Level 3.5 3.5-5.1 mmol/L Chloride Level 105 101-111 mmol/L Carbon Dioxide Level 26 21-32 mmol/L Blood Urea Nitrogen 10 7-18 mg/dL Creatinine 0.6 0.5-1.0 mg/dL Glomerular Filtration Rate Calc 91 >90 mL/min Random Glucose 116 H 70-105 mg/dL Total Calcium 8.3 L 8.5-10.1 mg/dL Magnesium Level 1.50 L 1.80-2.40 mg/dL Total Bilirubin 1.4 H 0.2-1.0 mg/dL Direct Bilirubin 0.5 H 0.0-0.3 mg/dL Aspartate Amino Transf (AST/SGOT) 61 H 10-37 U/L Alanine Aminotransferase (ALT/SGPT) 38 12-78 U/L Alkaline Phosphatase 108 50-136 U/L Total Creatine Kinase 43 # 21-232 U/L B-Type Natriuretic Peptide 135 H 0-100 pg/mL Total Protein 7.3 6.0-8.3 g/dL Albumin 2.5 L 3.5-5.0 g/dL Procalcitonin 0.12 0.05-0.5 ng/mL Influenza Type A Antigen Negative For Type A NEGATIVE Influenza Type B Antigen Negative For Type B NEGATIVE Test 07/10/24 12:28 07/10/24 10:55 Range/Units Urine Color YELLOW YELLOW Urine Appearance CLEAR CLEAR Urine pH 5.5 5.0-8.0 Urine Specific [place] 1.016 1.001-1.031 Urine Protein NEGATIVE NEGATIVE mg/dL Urine Glucose (UA) NEGATIVE NEGATIVE mg/dL Urine Ketones NEGATIVE NEGATIVE mg/dL Urine Occult Blood NEGATIVE NEGATIVE Urine Nitrate NEGATIVE NEGATIVE Urine Bilirubin NEGATIVE NEGATIVE mg/dL Urine Urobilinogen 6 H 0.2-1.0 mg/dL Urine Leukocyte Esterase NEGATIVE NEGATIVE Gigi/uL Urine RBC 2-5 H 0-1 /HPF Urine WBC 2-5 H 0-1 /HPF Urine Squamous Epithelial Cells RARE 0-2 /HPF Urine Bacteria None None Seen /HPF Prothrombin Time 11.6 9.6-11.6 SEC Prothromb Time International Ratio 1.11 0.85-1.15 Activated Partial Thromboplast Time 27.8 26.3-35.5 SEC Hemoglobin A1c 5.6 4.0-6.0 % Estimated Average Glucose (eAG) 114 70-126 mg/dL Troponin I High Sensitivity 5 4-50 ng/L Current Medications Medications (Trade) Dose Ordered Sig/Daily Route PRN Reason Start Time Stop Time Status Last Admin Dose Admin Acetaminophen (TYLenol 325MG TAB) 650 mg Q4H PRN PO MILD PAIN (1-3) 07/10/24 16:00 08/09/24 15:59 Acetaminophen (TYLenol 325MG TAB) 650 mg Q6H PRN PO MILD PAIN (1-3) 07/10/24 16:00 08/09/24 15:59 Acetaminophen (TYLenol 325MG TAB) 650 mg Q6H PRN PO TEMPERATURE GREATER THAN 101.5 07/10/24 16:00 08/09/24 15:59 Al Hydroxide/Mg Hydroxide (MAALox PLUS 30ML) 30 ml Q6H PRN PO INDIGESTION 07/10/24 16:00 08/09/24 15:59 Amlodipine Besylate (NorvASC 5MG TAB) 5 mg DAILY PO 07/11/24 09:00 08/10/24 08:59 07/11/24 07:55 5 MG Atorvastatin Calcium (LIPItor 20MG) 20 mg HS PO 07/11/24 21:00 08/10/24 20:59 Dextrose (D50w) 50 ml AD PRN IV HYPOGLYCEMIA PROTOCOL 07/10/24 16:00 08/09/24 15:59 Diphenhydramine HCl (BENAdryl INJ) 25 mg Q6H PRN IV SEVERE ITCHING/RASH 07/10/24 16:00 08/09/24 15:59 Famotidine (Pepcid 20mg Vial) 20 mg BID IV 07/10/24 21:00 08/09/24 20:59 07/11/24 07:56 20 MG Famotidine (Pepcid 20mg Vial) 20 mg BID PRN IV NAUSEA/VOMITING 07/10/24 16:00 07/11/24 07:39 DC Folic Acid (FOLic ACID 1 MG TABLET) 1 mg DAILY PO 07/11/24 09:00 08/10/24 08:59 07/11/24 07:55 1 MG Glucagon (Glucagon 1mg Kit) 1 mg AD PRN IM HYPOGLYCEMIA PROTOCOL 07/10/24 16:00 08/09/24 15:59 Guaifenesin/ Dextromethorphan (RobiTUSSin DM 200/20MG 10ML) 10 ml Q4H PRN PO COUGH 07/10/24 16:00 08/09/24 15:59 Hydralazine HCl (APRESOLine 20MG INJ) 10 mg Q6H PRN IV For:SBP above 160;DBP above 90 07/10/24 16:00 08/09/24 15:59 07/11/24 04:26 10 MG Hydrochlorothiazide (hydroCHLOROthiazide 25MG) 12.5 mg DAILY PO 07/11/24 09:00 08/10/24 08:59 07/11/24 08:00 12.5 MG Insulin Human Regular (humuLIN R 100 UNIT/ML 3ML) INSULIN SLIDING SCAL... ACHS SQ 07/10/24 16:30 08/09/24 16:29 Ketorolac Tromethamine (toRADol) 15 mg Q8H PRN IV MODERATE PAIN (4-6) 07/10/24 16:00 07/15/24 15:59 07/11/24 04:21 15 MG Lactulose (Constulose 20gm/ 30ml Udcup) 20 gm BID PRN PO CONSTIPATION 07/10/24 16:00 08/09/24 15:59 Loratadine (LORATAdine 10 mg) 10 mg DAILY PO 07/11/24 09:00 08/10/24 08:59 07/11/24 07:54 10 MG Magnesium Sulfate 50 ml @ 0 mls/hr PROTOCOL IV 07/11/24 07:30 08/10/24 07:29 Magnesium Sulfate 50 ml @ 0 mls/hr PROTOCOL PRN IV other 07/10/24 16:00 08/09/24 15:59 Megestrol Acetate (Megace) 400 mg DAILY PO 07/11/24 09:00 08/10/24 08:59 07/11/24 07:56 400 MG Memantine (NAmenDA 5 MG TAB) 5 mg HS PO 07/11/24 21:00 08/10/24 20:59 Multivitamins Therapeutic (Multivitamin Tablet) 1 tab DAILY PO 07/11/24 09:00 08/10/24 08:59 07/11/24 07:55 1 TAB Nitroglycerin (Nitrostat) 0.4 mg PROTOCOL PRN SL CHEST PAIN 07/10/24 16:00 08/09/24 15:59 Ondansetron HCl (zoFRAN 4MG INJ) 4 mg Q6H PRN IV NAUSEA/VOMITING 07/10/24 16:00 08/09/24 15:59 Oxycodone/ Acetaminophen (perCOCET) 1 tab Q6H PRN PO SEVERE PAIN (7-10) 07/10/24 16:00 07/17/24 15:59 Piperacillin Sod/ Tazobactam Sod (Zosyn 3.375gm+NS 50ml) 3.375 gm Q8H IV 07/11/24 06:00 07/11/24 05:50 DC Piperacillin Sod/ Tazobactam Sod (Zosyn 3.375gm+NS 50ml) 3.375 gm Q8H IV 07/11/24 07:00 07/21/24 06:59 07/11/24 07:58 3.375 GM Sodium Chloride 1,000 ml @ 0 mls/hr Q0M IV 07/10/24 11:30 08/09/24 11:29 07/10/24 12:01 1,000 MLS/HR Sodium Chloride 1,000 ml @ 80 mls/hr [id number] IV 07/10/24 16:00 08/09/24 15:59 07/10/24 17:27 80 MLS/HR Tramadol HCl (UltRAM) 25 mg Q8H5 PO 07/11/24 13:00 07/16/24 12:59 UNV Zolpidem Tartrate (AmbIEN) 5 mg HS PRN PO INSOMNIA 07/10/24 16:00 08/09/24 15:59 DIAGNOSTICS / RADIOLOGY: [ ] ASSESSMENT: [ S/p fall POA Acute pain to upper, lower back, abdomen, bilateral hips POA Uncontrolled hypertension POA Multifactorial anemia POA Thrombocytopenia POA Uncontrolled diabetes mellitus type 2 with hypoglycemia POA Varices per CT abdomen/pelvis POA Distended gallbladder with gallstones per CT abdomen/pelvis POA Diverticulosis per CT abdomen/pelvis POA Debilitation POA Arthritis POA Osteoporosis POA Became this POA Asthma POA Dementia POA ] PLAN: [ Admit to: Medical-surgical floor Consults: Surgeon consulted for cholecystitis Antibiotics: None at this moment Tests: Bilateral hip x-ray. NEURO: CT head brain negative Minimize central acting medications as possible. Fall Precautions. Well lighted room through the day and minimize interruptions through the night to prevent acute delirium. PULMONARY: Chest x-ray minimal pulmonary infiltrate Supplemental 02 as needed BiPAP as necessary, for respiratory distress Titrate Fio2 to keep Spo2 > or = 90% DuoNebs and CPT as needed IS hourly while awake for pulmonary hygiene Out of bed to chair as tolerated VAP Bundle Maintain aspiration precautions at all times CARDIOVASCULAR: Follow hemodynamics. Vital signs per facility protocol GI & NUTRITION: HIDA scan showed acute cholecystitis CT abdomen/pelvis showed varices, distended gallbladder with gallstones, diverticulosis Continue nutritional support Aspirations precautions Prokinetic agents and laxatives as needed KIDNEYS & ELECTROLYTES: Patient receive 2 g of magnesium Patient received 40 mEq of potassium Strict monitoring of intake and output Daily weights Avoid nephrotoxic agents Monitor electrolytes and replace as needed Goal urine output of 30mL/hr or 0.5mL/kg/hr Medications to be dosed according to renal function. Avoid contrast if possible ENDOCRINE: Maintain blood glucose between 100-180 at all times. Insulin sliding scale for blood glucose management Hypoglycemia and hyperglycemia protocol in place INFECTIOUS DISEASE: Trend temperature, WBC and procalcitonin level Follow cultures, deescalate antibiotics as soon as possible. Panculture if new onset fever HEMATOLOGY & COAGULATION: Monitor H&H. Keep Hgb > 7 Transfuse 1 unit of PRBC for Hgb < 7 Transfuse 1 pack of platelets of platelets < 20, 000 Watch for any signs and symptoms of bleeding SKIN: Pressure ulcer prevention per facility protocol Specialty mattress as needed Bilateral hip x-ray pending Lumbar CT spine showed compression fracture throughout the thoracic spine was at T11 and T12. Age indeterminate Thoracic CT spine showed compression fracture throughout the thoracic spine was at T11 and T12. Age indeterminate Cervical CT spine no fracture seen DJD Treatment plan discussed with patient and family at the bedside Medications to be reconciled once obtained by patient and/or family and available to be reconciled in computer p.r.n. medication for pain nausea and vomiting Questions were answered We will continue to monitor the patient closely Plant And Maintenance Technician for disposition Rehab: PT/OT GI: PPI DVT: SCD's Code Status: Full Resuscitation Disposition: TBD Prognosis: Guarded] ATTESTATION BY PHYSICIAN I have seen and examined the patient. I reviewed the documentation, medical decision making, and treatment plan as noted by the mid-level provider above. I agree with the findings and plan of care. DAVID Leroy MD [employer] ASSEMBLER July 11, 2024 10:11
[2024-07-11] MEDS: MAGNESIUM 2GM PREMIX 50ML 50 ML IV SCH (11:32)
[2024-07-11 11:42] VITALS: BP 141/51; PULSE 91; RESP 18; TEMP 98.1
[2024-07-11] MEDS ORDERED: traMADol HCL 50 MG TABLET PO SCH (13:00)
[2024-07-11 15:57] VITALS: BP 151/64; PULSE 93; RESP 19; TEMP 97.7
--- NOTE | 2024-07-11 16:55 | CONS ---
CONSULT NOTE: Consulting physician:Dr Dailey Consulting service: General surgery Reason for consultation: Cholecystitis History of present illness: This is a 79-year-old female with a medical history listed below consulted to surgery after initially presenting to the hospital for concerns of fall at [facility]. Due to initial imaging performed concerns for cholecystitis noted and patient was sent for HIDA scan which was consistent with cholecystitis. Patient with a history of dementia so appropriate HPI very difficult to obtain. At time of exam patient reporting no significant abdominal pain. HIDA scan performed yesterday consistent with cholecystitis. WBCs has been in rock unremarkable since admission. Total bilirubin elevated LFTs unremarkable. Medical history: Varices, gallstones, diverticulosis, influenza, pneumonia, diabetes, hypertension, arthritis, osteoporosis, bronchitis, asthma, dementia, thrombocytopenia PAST SURGICAL HISTORY: None PAST SOCIAL HISTORY: Patient denies smoking. Patient denies any drug illicit. Patient denies any alcohol illicit FAMILY HISTORY: Patient is resident of [facility], independent Coded Allergies: codeine (Unverified Allergy, Unknown, 07/01/16) Review of systems: General: No Fever, No Chills, No Night Sweats, No Fatigue, No Malaise, No Appetite, No Other HEENT: No Head Aches, No Visual Changes, No Eye Pain, No Ear Pain, No Dysphasia, No Sinus Congestion, No Post Nasal Drip, No Sore Throat, No Other Pulmonary: No Dyspnea, No Cough, No Pleuritic Chest Pain, No Other Cardiovascular: No: Chest Pain, Palpitations, Orthopnea, Paroxysmal No Dyspnea, Edema, Lt Headedness, Other Gastrointestinal: No: Nausea, Vomiting, Diarrhea, Constipation, Melena, Hematochezia, Other Genitourinary: No Dysuria, No Frequency, No Incontinence, No Hematuria, No Retention, No Other Musculoskeletal: No: other, neck pain, shoulder pain, arm pain, back pain, hand pain, leg pain, foot pain Skin: No Urticaria, No Rash, No Other Neurological: No: Weakness, Numbness, Incoordination, Change in speech, Confusion, Seizures, Other Physical exam: General: Awake alert and oriented Heart: Regular rate and rhythm} Lungs: Clear to auscultation no distress Abdomen: [Soft, nontender, nondistended Assessment: This is a 79-year-old female with concerns of acute cholecystitis confirmed on HIDA scan after presenting for fall Plan: At this point in time we will request medical clearance for surgical intervention With a elevated bilirubin we will order MRCP to rule out any concerns for choledocholithiasis Consent we will need to be obtained for surgical intervention Saturday if patient is cleared Dr. Lin to be updated in patient's status and nursing report any further acute events KASHMIR ROJAS Jr. July 11, 2024 16:54
--- NOTE | 2024-07-11 17:09 | NUR ---
DCP: INITIAL ASSESSMENT Patient is presently at [facility]. As per son, Wolf Crockett, patient was admitted X 3 weeks ago[address] PCP is Dr. Clive Nelson. LUIS ANGEL complete and placed in patient chart. DCP is for patient to return to [facility]. Addendum: 07/11/24 at 1715 by HINA GRANGER SS Amended: Links added.
[2024-07-11 20:00] VITALS: BP 155/65; PULSE 95; RESP 18; TEMP 98.5; O2SAT 94
[2024-07-11] MEDS: atorVAStatin 20 MG TABLET PO SCH (20:31)
[2024-07-11] MEDS: MEMANtine HCL 5 MG TABLET PO SCH (20:31)
[2024-07-11] MEDS: 0.9%NACL 1000ML 1,000 ML IV SCH (20:32)
[2024-07-12] VITALS: BP 143/64; PULSE 89; RESP 18; TEMP 98.5
[2024-07-12 04:00] VITALS: BP 120/56; PULSE 88; RESP 18; TEMP 99.1
[2024-07-12 05:06] LABS: BASOPHILS # (AUTO) 0.02 K/uL (0.00-0.20); BASOPHILS % (AUTO) 0.4 % (0.0-5.0); EOSINOPHILS # (AUTO) 0.44 K/uL (0.00-0.70); EOSINOPHILS % (AUTO) 8.7 % (0.0-8.0); HEMATOCRIT 29.9 % (36-48); IMMATURE GRANULOCYTE ABSOLUTE 0.01 K/uL (0-1); LYMPHOCYTES # (AUTO) 1.7 K/uL (1.0-4.8); LYMPHOCYTES % (AUTO) 34.3 % (21.0-51.0); MEAN CORPUSCULAR HEMOGLOBIN 34.5 pg (27.0-33.0); MEAN CORPUSCULAR HGB CONC 35.1 g/dL (32.0-36.0); MEAN CORPUSCULAR VOLUME 98.4 fL (79-99); MONOCYTES # (AUTO) 0.6 K/uL (0.1-1.0); MONOCYTES % (AUTO) 11.7 % (3.0-13.0); NEUTROPHILS # (AUTO) 2.3 K/uL (1.8-7.7); NEUTROPHILS % (AUTO) 44.7 % (40.0-77.0); PLATELET COUNT (AUTO) 99 K/uL (130-400); RED BLOOD CELL COUNT(AUTO) 3.04 MIL/uL (4.00-5.50); RED CELL DISTRIBUTION WIDTH 13.9 % (11.0-15.5)
[2024-07-12 05:19] LABS: ALBUMIN 1.9 g/dL (3.5-5.0); BILIRUBIN,DIRECT 0.4 mg/dL (0.0-0.3); BILIRUBIN,TOTAL 0.9 mg/dL (0.2-1.0); CREATININE 0.8 mg/dL (0.5-1.0); MAGNESIUM 1.9 mg/dL (1.80-2.40); POTASSIUM 3.7 mmol/L (3.5-5.1); TOTAL PROTEIN, SERUM 5.9 g/dL (6.0-8.3)
[2024-07-12 08:00] VITALS: BP 122/52; PULSE 87; RESP 18; TEMP 100.1; O2SAT 95
[2024-07-12 12:00] VITALS: BP 142/57; PULSE 85; RESP 18; TEMP 98.4
[2024-07-12] MEDS: PoTASSium chloRIDE 20MEQ ER 20 MEQ ERTAB PO ONE ×2 (12:57→20:46)
--- NOTE | 2024-07-12 14:05 | PN ---
This is a 79-year-old female with concerns of acute cholecystitis Interval history This point in time patient has been cleared by medical team for surgical intervention Patient to be allowed diet today NPO at midnight Patient to be taken for robotic cholecystectomy tomorrow by Dr. Cordon Nursing report any further acute events While anticoagulation to be held at midnight Dr. Cordon to be updated in patient's status and surgical team to follow patient closely Vitals/Labs Vital Signs Date Time Temp Pulse Resp B/P (MAP) Pulse Ox O2 Delivery O2 Flow Rate FiO2 07/12/24 12:00 98.4 85 18 142/57 94 Room Air 07/11/24 20:00 0 21 Laboratory Tests 07/12/24 04:54 Medications Current Medications Sodium Chloride 1,000 ml @ 0 mls/hr Q0M IV Last administered on 07/10/24at 12:01; Start 07/10/24 at 11:30; Stop 08/09/24 at 11:29 Iohexol 75 ml STK-MED ONCE IV; Start 07/10/24 at 12:44; Stop 07/10/24 at 12:45; Status DC Insulin Human Regular INSULIN SLIDING SCAL... ACHS SQ Last administered on 07/11/24at 20:36; Start 07/10/24 at 16:30; Stop 08/09/24 at 16:29 Dextrose 50 ml AD PRN IV; Start 07/10/24 at 16:00; Stop 08/09/24 at 15:59 Glucagon 1 mg AD PRN IM; Start 07/10/24 at 16:00; Stop 08/09/24 at 15:59 Magnesium Sulfate 50 ml @ 0 mls/hr PROTOCOL PRN IV; Start 07/10/24 at 16:00; Stop 08/09/24 at 15:59 Diphenhydramine HCl 25 mg Q6H PRN IV; Start 07/10/24 at 16:00; Stop 08/09/24 at 15:59 Acetaminophen 650 mg Q6H PRN PO; Start 07/10/24 at 16:00; Stop 08/09/24 at 15:59 Acetaminophen 650 mg Q4H PRN PO; Start 07/10/24 at 16:00; Stop 08/09/24 at 15:59 Ondansetron HCl 4 mg Q6H PRN IV; Start 07/10/24 at 16:00; Stop 08/09/24 at 15:59 Zolpidem Tartrate 5 mg HS PRN PO; Start 07/10/24 at 16:00; Stop 08/09/24 at 15:59 Al Hydroxide/Mg Hydroxide 30 ml Q6H PRN PO; Start 07/10/24 at 16:00; Stop 08/09/24 at 15:59 Lactulose 20 gm BID PRN PO; Start 07/10/24 at 16:00; Stop 08/09/24 at 15:59 Nitroglycerin 0.4 mg PROTOCOL PRN SL; Start 07/10/24 at 16:00; Stop 08/09/24 at 15:59 Guaifenesin/ Dextromethorphan 10 ml Q4H PRN PO; Start 07/10/24 at 16:00; Stop 08/09/24 at 15:59 Famotidine 20 mg BID PRN IV; Start 07/10/24 at 16:00; Stop 07/11/24 at 07:39; Status DC Acetaminophen 650 mg Q6H PRN PO; Start 07/10/24 at 16:00; Stop 08/09/24 at 15:59 Ketorolac Tromethamine 15 mg Q8H PRN IV Last administered on 07/12/24at 08:55; Start 07/10/24 at 16:00; Stop 07/15/24 at 15:59 Oxycodone/ Acetaminophen 1 tab Q6H PRN PO; Start 07/10/24 at 16:00; Stop 07/17/24 at 15:59 Sodium Chloride 1,000 ml @ 80 mls/hr [id number] IV Last administered on 07/12/24at 06:08; Start 07/10/24 at 16:00; Stop 08/09/24 at 15:59 Hydralazine HCl 10 mg Q6H PRN IV Last administered on 07/11/24at 04:26; Start 07/10/24 at 16:00; Stop 08/09/24 at 15:59 Famotidine 20 mg BID IV Last administered on 07/12/24at 08:53; Start 07/10/24 at 21:00; Stop 08/09/24 at 20:59 Lactated Ringer's 1,768 ml @ 589.333 mls/hr ONCE ONCE IV Last administered on 07/11/24 05:51; Start 07/11/24 at 06:00; Stop 07/11/24 at 08:59; Status DC Piperacillin Sod/ Tazobactam Sod 3.375 gm Q8H IV; Start 07/11/24 at 06:00; Stop 07/11/24 at 05:50; Status DC Piperacillin Sod/ Tazobactam Sod 3.375 gm Q8H IV Last administered on 07/12/24at 08:53; Start 07/11/24 at 07:00; Stop 07/21/24 at 06:59 Potassium Chloride 40 meq ONCE ONCE PO Last administered on 07/11/24at 07:54; Start 07/11/24 at 07:30; Stop 07/11/24 at 07:34; Status DC Magnesium Sulfate 50 ml @ 0 mls/hr PROTOCOL IV Last administered on 07/12/24at 06:45; Start 07/11/24 at 07:30; Stop 08/10/24 at 07:29 Amlodipine Besylate 5 mg DAILY PO Last administered on 07/12/24 12:57; Start 07/11/24 at 09:00; Stop 08/10/24 at 08:59 Loratadine 10 mg DAILY PO Last administered on 07/12/24 12:57; Start 07/11/24 at 09:00; Stop 08/10/24 at 08:59 Memantine 5 mg HS PO Last administered on 07/11/24at 20:31; Start 07/11/24 at 21:00; Stop 08/10/24 at 20:59 Folic Acid 1 mg DAILY PO Last administered on 07/12/24 12:57; Start 07/11/24 at 09:00; Stop 08/10/24 at 08:59 Hydrochlorothiazide 12.5 mg DAILY PO Last administered on 07/12/24 12:56; Start 07/11/24 at 09:00; Stop 08/10/24 at 08:59 Megestrol Acetate 400 mg DAILY PO Last administered on 07/12/24 12:57; Start 07/11/24 at 09:00; Stop 08/10/24 at 08:59 Multivitamins Therapeutic 1 tab DAILY PO Last administered on 07/12/24 12:57; Start 07/11/24 at 09:00; Stop 08/10/24 at 08:59 Atorvastatin Calcium 20 mg HS PO Last administered on 07/11/24at 20:31; Start 07/11/24 at 21:00; Stop 08/10/24 at 20:59 Tramadol HCl 25 mg Q8H5 PO; Start 07/11/24 at 13:00; Stop 07/11/24 at 10:35; Status DC Sodium Chloride 1,000 ml @ 200 mls/hr Q5H IV Last administered on 07/11/24at 20:32; Start 07/11/24 at 17:30; Stop 08/10/24 at 17:29 Potassium Chloride 40 meq ONCE ONCE PO Last administered on 07/12/24at 12:57; Start 07/12/24 at 12:30; Stop 07/12/24 at 12:31; Status DC Potassium Chloride 40 meq ONCE ONCE PO; Start 07/12/24 at 21:00; Stop 07/12/24 at 21:01 KASHMIR ROJAS Jr. July 12, 2024 14:05
--- NOTE | 2024-07-12 14:22 | PN ---
[facility] PROGRESS NOTE Date of Service: July 12, 2024 Time of Service: 14:09 Attending doctor Asim SUBJECTIVE: [07/10 [Patient is 79-year-old female with a past medical history of influenza, pneumonia, diabetes, hypertension, arthritis, osteoporosis, bronchitis, asthma, mild dementia, thrombocytopenia, who was brought to emergency department by EMS s/p fall at long term [facility]. Patient is complaining of headaches, upper and lower back and bilateral hip pain. Patient stated that she was taking a bath when she slipped and she fell down. Patient has been a resident of the long term for the past about three weeks due to dementia. No family member available at the bedside at this moment. Sodium 136 potassium 4.1 CO2 26 BUN 12 creatinine 0.7 GFR 88 glucose 154 calcium 8.8 CK 66 WBC 5.3 hemoglobin 12.7 hematocrit 36.2 platelets 110. UA negative for leukocytosis or nitrates. Chest x-ray showed minimal pulmonary infiltrate. CT abdomen/pelvis showed varices, distended gallbladder with gallstones, diverticulosis. Patient will be admitted under hospitalist care for further evaluation/recommendation. We will order HIDA scan to evaluate for gallstones. CT head brain, cervical, thoracic and lumbar spine CT was ordered as well. We will order bilateral hip x-ray. We will hold off of surgeon at this moment. We will wait for HIDA scan results 1st. Patient agrees with the further plan. A.m. labs 07/11 patient was seen by nurse practitioner and physician during rounding in room 406. HIDA scan came back positive for acute cholecystitis. We will consult surgeon Dr. Cordon who is on-call today for possible cholecystectomy. Patient is still complains to abdominal pain. Abdomen is very rigid and painful to touch. CT head brain was negative. CT cervical, thoracic and lumbar was negative as well we are pending bilateral hip x-ray for now. Son was sitting at the bedside next to the patient stating that normally at home patient takes tramadol 25 mg every 8 hours for chronic back pain. We will order above-stated medication. On CT abdomen/pelvis versus were showed with some diverticulosis. Patient follows GI Dr. Lozano we will consult him as well for further recommendations. Patient's potassium today is 3.5 patient will receive 40 mEq of potassium. Magnesium 1.5 patient receive 2 g of magnesium. We will continue to monitor patient in the meantime. A.m. labs 07/12 patient was seen by nurse practitioner physician during rounding in room 406. Patient was evaluated by the GI and that is pending MRCP to rule out concerns for choledocholithiasis. Also surgeon will like to performed cholecystectomy tomorrow 07/13/2024 at this moment is require medical clearance. We will continue to monitor patient in the meantime. A.m. labs Medical clearance Gautam perioperative risk 0.2% DESIRAE risk, risk of myocardial infarction or cardiac arrest, intraoperatively or up to 30 days postop is 0.2% NSQIP for procedure laparoscopy surgical, cholecystectomy Serious complication 3.2% Any complication 3.3% Pneumonia 0.2% Cardiac complication 0.4% Venous thromboembolism 0.2% Sepsis 0.5% Surgical site infection 1.3% UTI 0.9% Renal failure 0.3% Readmission 4.4% Return to OR 0.7% 0.1% Discharged to nursing or rehab facility 0.9% Patient is cleared from the medical standpoint for cholecystectomy ] REVIEW OF SYSTEMS CONSTITUTIONAL: Denies fevers, chills, or night sweats. No unintentional weight loss reported. NEUROLOGICAL: Denies headache, amaurosis fugax, motor weakness, sensory deficit, vertigo/spinning sensation, gait abnormalities, or tremors. ENT: No hearing loss, otalgia, otorrhea, rhinitis, rhinorrhea, hoarseness, or sore throat. CARDIOVASCULAR: Denies any exertional angina, dyspnea on exertion, orthopnea, paroxysmal nocturnal dyspnea, palpitations, life-threatening arrhythmias, claudication. PULMONARY: Denies any shortness of breath, cough, phlegm/sputum, hemoptysis, pleuritic chest pain. SLEEP: Denies morning headaches, daytime somnolence or napping. Denies difficulty falling asleep, staying asleep, waking from sleep. Denies knowledge of snoring. GASTROINTESTINAL: Denies any type of dysphagia to either liquids or solids. Denies nausea, vomiting, pyrosis, early satiety, diarrhea, constipation, or changes in stool consistency or caliber. Denies coffee-ground emesis, hematemesis, hematochezia, or melanotic stools. Complains of abdominal pain GENITOURINARY: Denies frequency, urgency, nocturia, hematuria or incontinence (Storage/Irritative symptoms.) Low urinary stream, straining to void, urinary intermittency or hesitancy, splitting of the voiding stream, terminal dribbling. ENDOCRINOLOGIC: Denies polyuria, polydipsia, polyphagia or heat/cold intolerances. HEMATOLOGIC: Denies thrombophilia/previous clots, or coagulopathy/bleeding disorders. ONCOLOGIC: Denies personal history of malignancy. DERMATOLOGIC: Denies rashes or pruritus. PSYCHIATRIC: Denies any suicidal or homicidal ideation. Denies hallucinations. PHYSICAL EXAM GENERAL APPEARANCE: The patient is awake, alert, and oriented, in no acute cardiopulmonary distress. NEUROLOGICAL: Cranial nerves II-XII grossly intact. Motor is 5/5 in bilateral upper and lower extremities proximal to distal. No sensory deficits. Patient complains of headaches. Patient complains of upper and lower back pain. Patient complains of bilateral hip pain HEENT: Face is symmetric. Pupils are equal and reactive. Extraocular movements are intact. NECK: Supple. No JVD. No thyromegaly. No submental, submandibular, pre- /postauricular, occipital or supraclavicular lymphadenopathy. CHEST: Normal chest expansion. No Telemetry. LUNGS: Absence of any rales, rhonchi or any wheezing. CARDIOVASCULAR: Regular. S1 and S2 normal. No appreciable rubs, murmurs or gallops. ABDOMEN: Soft, nontender, and nondistended. There is no rebound, voluntary guarding, or rigidity. : Deferred. No Chavez. EXTREMITIES: Non-edematous and not cyanotic. No clubbing. Good capillary refill. SKIN: No skin breakdown. Vital Signs (last 8hr) Date Time Temp Pulse Resp B/P (MAP) Pulse Ox O2 Delivery O2 Flow Rate FiO2 07/12/24 12:00 98.4 85 18 142/57 94 Room Air 07/12/24 08:00 100.0 87 18 122/52 95 Room Air LABS: Laboratory: Test 07/12/24 11:32 07/12/24 04:54 07/11/24 09:20 07/11/24 04:40 Range/Units Whole Blood Glucose 116 H 70-110 MG/DL White Blood Count 5.0 4.8-10.8 K/uL Red Blood Count 3.04 L 4.00-5.50 MIL/uL Hemoglobin 10.5 L 12.0-16.0 g/dL Hematocrit 29.9 L 36-48 % Mean Corpuscular Volume 98.4 79-99 fL Mean Corpuscular Hemoglobin 34.5 H 27.0-33.0 pg Mean Corpuscular Hemoglobin Concent 35.1 32.0-36.0 g/dL Red Cell Distribution Width 13.9 11.0-15.5 % Platelet Count 99 L 130-400 K/uL Mean Platelet Volume 11.6 H 7.5-10.5 fL Immature Granulocyte % (Auto) 0.2 0-1 % Neutrophils (%) (Auto) 44.7 40.0-77.0 % Lymphocytes (%) (Auto) 34.3 21.0-51.0 % Monocytes (%) (Auto) 11.7 3.0-13.0 % Eosinophils (%) (Auto) 8.7 H 0.0-8.0 % Basophils (%) (Auto) 0.4 0.0-5.0 % Neutrophils # (Auto) 2.3 1.8-7.7 K/uL Lymphocytes # (Auto) 1.7 1.0-4.8 K/uL Monocytes # (Auto) 0.6 0.1-1.0 K/uL Eosinophils # (Auto) 0.44 0.00-0.70 K/uL Basophils # (Auto) 0.02 0.00-0.20 K/uL Absolute Immature Granulocyte (auto 0.01 0-1 K/uL Nucleated Red Blood Cells 0.0 0.0-0.19 % Sodium Level 140 136-145 mmol/L Potassium Level 3.7 3.5-5.1 mmol/L Chloride Level 110 101-111 mmol/L Carbon Dioxide Level 26 21-32 mmol/L Blood Urea Nitrogen 12 7-18 mg/dL Creatinine 0.8 0.5-1.0 mg/dL Glomerular Filtration Rate Calc 75 >90 mL/min Random Glucose 140 H 70-105 mg/dL Total Calcium 7.6 L 8.5-10.1 mg/dL Magnesium Level 1.90 1.80-2.40 mg/dL Total Bilirubin 0.9 0.2-1.0 mg/dL Direct Bilirubin 0.4 H 0.0-0.3 mg/dL Aspartate Amino Transf (AST/SGOT) 47 H 10-37 U/L Alanine Aminotransferase (ALT/SGPT) 30 12-78 U/L Alkaline Phosphatase 130 50-136 U/L Total Protein 5.9 L 6.0-8.3 g/dL Albumin 1.9 L 3.5-5.0 g/dL Lactic Acid Level 2.9 H 0.8-2.5 mmol/L Total Creatine Kinase 43 # 21-232 U/L B-Type Natriuretic Peptide 135 H 0-100 pg/mL Procalcitonin 0.12 0.05-0.5 ng/mL Test 07/10/24 18:20 Range/Units Influenza Type A Antigen Negative For Type A NEGATIVE Influenza Type B Antigen Negative For Type B NEGATIVE Current Medications Medications (Trade) Dose Ordered Sig/Daily Route PRN Reason Start Time Stop Time Status Last Admin Dose Admin Acetaminophen (TYLenol 325MG TAB) 650 mg Q4H PRN PO MILD PAIN (1-3) 07/10/24 16:00 08/09/24 15:59 Acetaminophen (TYLenol 325MG TAB) 650 mg Q6H PRN PO MILD PAIN (1-3) 07/10/24 16:00 08/09/24 15:59 Acetaminophen (TYLenol 325MG TAB) 650 mg Q6H PRN PO TEMPERATURE GREATER THAN 101.5 07/10/24 16:00 08/09/24 15:59 Al Hydroxide/Mg Hydroxide (MAALox PLUS 30ML) 30 ml Q6H PRN PO INDIGESTION 07/10/24 16:00 08/09/24 15:59 Amlodipine Besylate (NorvASC 5MG TAB) 5 mg DAILY PO 07/11/24 09:00 08/10/24 08:59 07/12/24 12:57 5 MG Atorvastatin Calcium (LIPItor 20MG) 20 mg HS PO 07/11/24 21:00 08/10/24 20:59 07/11/24 20:31 20 MG Dextrose (D50w) 50 ml AD PRN IV HYPOGLYCEMIA PROTOCOL 07/10/24 16:00 08/09/24 15:59 Diphenhydramine HCl (BENAdryl INJ) 25 mg Q6H PRN IV SEVERE ITCHING/RASH 07/10/24 16:00 08/09/24 15:59 Famotidine (Pepcid 20mg Vial) 20 mg BID IV 07/10/24 21:00 08/09/24 20:59 07/12/24 08:53 20 MG Famotidine (Pepcid 20mg Vial) 20 mg BID PRN IV NAUSEA/VOMITING 07/10/24 16:00 07/11/24 07:39 DC Folic Acid (FOLic ACID 1 MG TABLET) 1 mg DAILY PO 07/11/24 09:00 08/10/24 08:59 07/12/24 12:57 1 MG Glucagon (Glucagon 1mg Kit) 1 mg AD PRN IM HYPOGLYCEMIA PROTOCOL 07/10/24 16:00 08/09/24 15:59 Guaifenesin/ Dextromethorphan (RobiTUSSin DM 200/20MG 10ML) 10 ml Q4H PRN PO COUGH 07/10/24 16:00 08/09/24 15:59 Hydralazine HCl (APRESOLine 20MG INJ) 10 mg Q6H PRN IV For:SBP above 160;DBP above 90 07/10/24 16:00 08/09/24 15:59 07/11/24 04:26 10 MG Hydrochlorothiazide (hydroCHLOROthiazide 25MG) 12.5 mg DAILY PO 07/11/24 09:00 08/10/24 08:59 07/12/24 12:56 12.5 MG Insulin Human Regular (humuLIN R 100 UNIT/ML 3ML) INSULIN SLIDING SCAL... ACHS SQ 07/10/24 16:30 08/09/24 16:29 07/11/24 20:36 2 UNIT Ketorolac Tromethamine (toRADol) 15 mg Q8H PRN IV MODERATE PAIN (4-6) 07/10/24 16:00 07/15/24 15:59 07/12/24 08:55 15 MG Lactulose (Constulose 20gm/ 30ml Udcup) 20 gm BID PRN PO CONSTIPATION 07/10/24 16:00 08/09/24 15:59 Loratadine (LORATAdine 10 mg) 10 mg DAILY PO 07/11/24 09:00 08/10/24 08:59 07/12/24 12:57 10 MG Magnesium Sulfate 50 ml @ 0 mls/hr PROTOCOL IV 07/11/24 07:30 08/10/24 07:29 07/12/24 06:45 25 MLS/HR Magnesium Sulfate 50 ml @ 0 mls/hr PROTOCOL PRN IV other 07/10/24 16:00 6/1/25 15:59 Megestrol Acetate (Megace) 400 mg DAILY PO 07/11/24 09:00 08/10/24 08:59 07/12/24 12:57 400 MG Memantine (NAmenDA 5 MG TAB) 5 mg HS PO 07/11/24 21:00 08/10/24 20:59 07/11/24 20:31 5 MG Multivitamins Therapeutic (Multivitamin Tablet) 1 tab DAILY PO 07/11/24 09:00 08/10/24 08:59 07/12/24 12:57 1 TAB Nitroglycerin (Nitrostat) 0.4 mg PROTOCOL PRN SL CHEST PAIN 07/10/24 16:00 08/09/24 15:59 Ondansetron HCl (zoFRAN 4MG INJ) 4 mg Q6H PRN IV NAUSEA/VOMITING 07/10/24 16:00 08/09/24 15:59 Oxycodone/ Acetaminophen (perCOCET) 1 tab Q6H PRN PO SEVERE PAIN (7-10) 07/10/24 16:00 07/17/24 15:59 Piperacillin Sod/ Tazobactam Sod (Zosyn 3.375gm+NS 50ml) 3.375 gm Q8H IV 07/11/24 06:00 07/11/24 05:50 DC Piperacillin Sod/ Tazobactam Sod (Zosyn 3.375gm+NS 50ml) 3.375 gm Q8H IV 07/11/24 07:00 07/21/24 06:59 07/12/24 08:53 3.375 GM Sodium Chloride 1,000 ml @ 0 mls/hr Q0M IV 07/10/24 11:30 08/09/24 11:29 07/10/24 12:01 1,000 MLS/HR Sodium Chloride 1,000 ml @ 80 mls/hr [id number] IV 07/10/24 16:00 08/09/24 15:59 07/12/24 06:08 80 MLS/HR Sodium Chloride 1,000 ml @ 200 mls/hr Q5H IV 07/11/24 17:30 08/10/24 17:29 07/11/24 20:32 200 MLS/HR Tramadol HCl (UltRAM) 25 mg Q8H5 PO 07/11/24 13:00 07/11/24 10:35 DC Zolpidem Tartrate (AmbIEN) 5 mg HS PRN PO INSOMNIA 07/10/24 16:00 08/09/24 15:59 DIAGNOSTICS / RADIOLOGY: [ ] ASSESSMENT: [ S/p fall POA Acute pain to upper, lower back, abdomen, bilateral hips POA Acute cholecystitis per HIDA scan POA Possible choledocholithiasis POA Uncontrolled hypertension POA Multifactorial anemia POA Thrombocytopenia POA Uncontrolled diabetes mellitus type 2 with hypoglycemia POA Varices per CT abdomen/pelvis POA Distended gallbladder with gallstones per CT abdomen/pelvis POA Diverticulosis per CT abdomen/pelvis POA Debilitation POA Arthritis POA Osteoporosis POA Became this POA Asthma POA Dementia POA ] PLAN: [ Admit to: Medical-surgical floor Consults: Surgeon consulted for cholecystitis Antibiotics: None at this moment Tests: MRCP, cholecystectomy with Dr. Cordon 07/13/2024 NEURO: CT head brain negative Minimize central acting medications as possible. Fall Precautions. Well lighted room through the day and minimize interruptions through the night to prevent acute delirium. PULMONARY: Chest x-ray minimal pulmonary infiltrate Supplemental 02 as needed BiPAP as necessary, for respiratory distress Titrate Fio2 to keep Spo2 > or = 90% DuoNebs and CPT as needed IS hourly while awake for pulmonary hygiene Out of bed to chair as tolerated VAP Bundle Maintain aspiration precautions at all times CARDIOVASCULAR: Follow hemodynamics. Vital signs per facility protocol GI & NUTRITION: Possible surgery for cholecystectomy 07/13/[address] Cordon MRCP pending HIDA scan showed acute cholecystitis CT abdomen/pelvis showed varices, distended gallbladder with gallstones, diverticulosis Continue nutritional support Aspirations precautions Prokinetic agents and laxatives as needed KIDNEYS & ELECTROLYTES: Patient receive 2 g of magnesium Patient received 40 mEq of potassium Strict monitoring of intake and output Daily weights Avoid nephrotoxic agents Monitor electrolytes and replace as needed Goal urine output of 30mL/hr or 0.5mL/kg/hr Medications to be dosed according to renal function. Avoid contrast if possible ENDOCRINE: Maintain blood glucose between 100-180 at all times. Insulin sliding scale for blood glucose management Hypoglycemia and hyperglycemia protocol in place INFECTIOUS DISEASE: Trend temperature, WBC and procalcitonin level Follow cultures, deescalate antibiotics as soon as possible. Panculture if new onset fever HEMATOLOGY & COAGULATION: Monitor H&H. Keep Hgb > 7 Transfuse 1 unit of PRBC for Hgb < 7 Transfuse 1 pack of platelets of platelets < 20, 000 Watch for any signs and symptoms of bleeding SKIN: Pressure ulcer prevention per facility protocol Specialty mattress as needed Bilateral hip x-ray pending Lumbar CT spine showed compression fracture throughout the thoracic spine was at T11 and T12. Age indeterminate Thoracic CT spine showed compression fracture throughout the thoracic spine was at T11 and T12. Age indeterminate Cervical CT spine no fracture seen DJD Treatment plan discussed with patient and family at the bedside Medications to be reconciled once obtained by patient and/or family and available to be reconciled in computer p.r.n. medication for pain nausea and vomiting Questions were answered We will continue to monitor the patient closely Passenger Car Conductor for disposition Rehab: PT/OT GI: PPI DVT: SCD's Code Status: Full Resuscitation Disposition: TBD Prognosis: Guarded] ATTESTATION BY PHYSICIAN I have seen and examined the patient. I reviewed the documentation, medical decision making, and treatment plan as noted by the mid-level provider above. I agree with the findings and plan of care. DAVID Leroy MD ELEMENTARY READING SPECIALIST July 12, 2024 14:22
[2024-07-12] MEDS ORDERED: MAGNESIUM 2GM PREMIX 50ML 50 ML IV PRN (14:30)
[2024-07-12] MEDS ORDERED: DEXTROSE 50%-WATER 50 ML DISP.SYRIN IV PRN (14:30)
[2024-07-12] MEDS ORDERED: GLUCAGON 1MG KIT 1 MG ML IM PRN (14:30)
[2024-07-12] MEDS ORDERED: PoTASSium chloRIDE 10MEQ SR 10 MEQ/TAB TAB.SR.24H PO PRN (14:30)
[2024-07-12] MEDS ORDERED: PoTASSium chloRIDE 10MEQ/100ML 100 ML IV PRN (14:30)
--- NOTE | 2024-07-12 15:27 | NUR ---
MRCP HAS BEEN APPROVED BY [facility]. DISCHARGING MACHINE OPERATOR -GORDO HINTON- CALLED DEPT TO MAKE DEPT AWARE. SOLE BLACKER TECH MADE AWARE AT 3:29PM
[2024-07-12 16:00] VITALS: BP 146/61; PULSE 90; RESP 18; TEMP 99
[2024-07-12] MEDS: INSULIN humuLIN R 100 UNIT/ML 3ML SQ SCH (16:17)
[2024-07-12 20:00] VITALS: BP 155/64; PULSE 94; RESP 18; TEMP 98.3
[2024-07-12] MEDS: PoTASSium chl 10% ELIXIR 20MEQ 20 MEQ/15 ML UDCUP PO PRN (20:46)
--- NOTE | 2024-07-12 21:01 | NUR ---
K+ One time order for K+ 20 meq ordered po, patient unable to swallow whole pills. Administered elixir 20 meq. Tolerated well.
[2024-07-13] VITALS (27 sets, daily range): BP systolic 93–179; BP diastolic 43–80; PULSE 74–106; RESP 16–19; TEMP 97.6–99.2; O2SAT 97–98
[2024-07-13 04:31] LABS: BASOPHILS # (AUTO) 0.02 K/uL (0.00-0.20); BASOPHILS % (AUTO) 0.3 % (0.0-5.0); EOSINOPHILS # (AUTO) 0.47 K/uL (0.00-0.70); EOSINOPHILS % (AUTO) 8.1 % (0.0-8.0); HEMATOCRIT 31.9 % (36-48); IMMATURE GRANULOCYTE ABSOLUTE 0.02 K/uL (0-1); LYMPHOCYTES # (AUTO) 1.9 K/uL (1.0-4.8); LYMPHOCYTES % (AUTO) 31.8 % (21.0-51.0); MEAN CORPUSCULAR HEMOGLOBIN 34.6 pg (27.0-33.0); MEAN CORPUSCULAR HGB CONC 34.8 g/dL (32.0-36.0); MEAN CORPUSCULAR VOLUME 99.4 fL (79-99); MONOCYTES # (AUTO) 0.5 K/uL (0.1-1.0); MONOCYTES % (AUTO) 8.3 % (3.0-13.0); NEUTROPHILS % (AUTO) 51.2 % (40.0-77.0); PLATELET COUNT (AUTO) 100 K/uL (130-400); RED BLOOD CELL COUNT(AUTO) 3.21 MIL/uL (4.00-5.50); WHITE BLOOD COUNT (AUTO) 5.8 K/uL (4.8-10.8)
[2024-07-13 04:41] LABS: INR 1.12 (0.85-1.15); PROTHROMBIN TIME 11.7 SEC (9.6-11.6)
[2024-07-13 05:00] LABS: BILIRUBIN,DIRECT 0.4 mg/dL (0.0-0.3); BILIRUBIN,TOTAL 1.2 mg/dL (0.2-1.0); CREATININE 0.8 mg/dL (0.5-1.0); MAGNESIUM 2.5 mg/dL (1.80-2.40); POTASSIUM 4.7 mmol/L (3.5-5.1)
--- NOTE | 2024-07-13 08:20 | NUR ---
MRCP Pt was transferred to Radiology by the radiology team to perform MRCP. No s/s of distress noted.
--- NOTE | 2024-07-13 08:21 | CONS ---
GASTROENTEROLOGY CONSULTATION NOTE Date of Consultation: July 13, 2024 Time of Consultation: 08:21 History of Present Illness: [ ] Review of Systems: CONSTITUTIONAL: No malaise or change in sensation of wellbeing. ENMT: No rhinorrhea, otorrhea, sinus pain, ear ache. CARDIOVASCULAR: No angina, palpitations, orthopnea or paroxysmal dyspnea. RESPIRATORY: No SOB. GASTROINTESTINAL: No abdominal pain, nausea, vomiting, diarrhea, hematemesis, melena or change in the patient's habitual bowel movements consistency/number. GENITOURINARY: No dysuria, hematuria or change in bladder continence. MUSCULOSKELETAL: No new muscle pain or decrease in muscular strength. No new joint swelling, redness or tenderness. SKIN: No new rash. Past Medical History: [ ] Past Surgical History: [ ] Past Social History: [ ] Family History: [ ] Coded Allergies: codeine (Unverified Allergy, Unknown, 07/01/16) Physical Exam: GEN: Awake, alert, oriented in person, time and place, and in no acute distress. HEENT: No sinus tenderness. Tympanic membranes were not examined. No rhinorrhea. Oral pharyngeal mucosa is pink, moist and within normal limits. Neck is supple with no cervical lymphadenopathy, thyromegaly or JVD. CHEST: Inspection, palpation and percussion of the chest were unremarkable. Lung auscultation revealed normal breath sounds bilaterally. CARDIAC: PMI is within normal limits. Heart sounds are regular. Normal S1, S2. No gallop or murmur. ABD: Soft, non-tender and not distended. No peritoneal signs on palpation. No organomegaly. Normal bowel sounds. EXT: No cyanosis or clubbing. No edema. SKIN: Intact. No rashes. JOINTS: No evidence of synovitis or acute arthritis. NEURO: Alert and oriented to name, place and person. Cranial nerve examination is unremarkable. No focal motor deficits. Normal speech. Gait is normal. Strength is normal. Vital Sign (Last 24 Hours) 07/12/24 07/13/24 07/13/24 20:00 04:00 08:12 Temp 98.4 Pulse 87 Resp 18 B/P (MAP) 164/80 Pulse Ox 98 O2 Delivery Room Air O2 Flow Rate 0 FiO2 21 Intake & Output (last 24hrs) 07/12/24 07/12/24 07/13/24 15:00 23:00 07:00 Intake Total 0 ml Balance 0 ml Laboratory: [ ] Laboratory: Test 07/13/24 05:24 07/13/24 03:37 07/11/24 09:20 Range/Units Whole Blood Glucose 104 70-110 MG/DL White Blood Count 5.8 4.8-10.8 K/uL Red Blood Count 3.21 L 4.00-5.50 MIL/uL Hemoglobin 11.1 L 12.0-16.0 g/dL Hematocrit 31.9 L 36-48 % Mean Corpuscular Volume 99.4 H 79-99 fL Mean Corpuscular Hemoglobin 34.6 H 27.0-33.0 pg Mean Corpuscular Hemoglobin Concent 34.8 32.0-36.0 g/dL Red Cell Distribution Width 14.0 11.0-15.5 % Platelet Count 100 L 130-400 K/uL Mean Platelet Volume 11.7 H 7.5-10.5 fL Immature Granulocyte % (Auto) 0.3 0-1 % Neutrophils (%) (Auto) 51.2 40.0-77.0 % Lymphocytes (%) (Auto) 31.8 21.0-51.0 % Monocytes (%) (Auto) 8.3 3.0-13.0 % Eosinophils (%) (Auto) 8.1 H 0.0-8.0 % Basophils (%) (Auto) 0.3 0.0-5.0 % Neutrophils # (Auto) 3.0 1.8-7.7 K/uL Lymphocytes # (Auto) 1.9 1.0-4.8 K/uL Monocytes # (Auto) 0.5 0.1-1.0 K/uL Eosinophils # (Auto) 0.47 0.00-0.70 K/uL Basophils # (Auto) 0.02 0.00-0.20 K/uL Absolute Immature Granulocyte (auto 0.02 0-1 K/uL Nucleated Red Blood Cells 0.0 0.0-0.19 % Prothrombin Time 11.7 H 9.6-11.6 SEC Prothromb Time International Ratio 1.12 0.85-1.15 Sodium Level 138 136-145 mmol/L Potassium Level 4.7 3.5-5.1 mmol/L Chloride Level 110 101-111 mmol/L Carbon Dioxide Level 21 21-32 mmol/L Blood Urea Nitrogen 12 7-18 mg/dL Creatinine 0.8 0.5-1.0 mg/dL Glomerular Filtration Rate Calc 75 >90 mL/min Random Glucose 101 70-105 mg/dL Total Calcium 7.7 L 8.5-10.1 mg/dL Magnesium Level 2.50 H 1.80-2.40 mg/dL Total Bilirubin 1.2 #H 0.2-1.0 mg/dL Direct Bilirubin 0.4 H 0.0-0.3 mg/dL Aspartate Amino Transf (AST/SGOT) 43 H 10-37 U/L Alanine Aminotransferase (ALT/SGPT) 27 12-78 U/L Alkaline Phosphatase 94 # 50-136 U/L B-Type Natriuretic Peptide 98 0-100 pg/mL Total Protein 6.0 6.0-8.3 g/dL Albumin 2.0 L 3.5-5.0 g/dL Lactic Acid Level 2.9 H 0.8-2.5 mmol/L Current Medications Medications (Trade) Dose Ordered Sig/Daily Route PRN Reason Start Time Stop Time Status Last Admin Dose Admin Acetaminophen (TYLenol 325MG TAB) 650 mg Q4H PRN PO MILD PAIN (1-3) 07/10/24 16:00 08/09/24 15:59 Acetaminophen (TYLenol 325MG TAB) 650 mg Q6H PRN PO MILD PAIN (1-3) 07/10/24 16:00 07/12/24 14:13 DC Acetaminophen (TYLenol 325MG TAB) 650 mg Q6H PRN PO TEMPERATURE GREATER THAN 101.5 07/10/24 16:00 08/09/24 15:59 Al Hydroxide/Mg Hydroxide (MAALox PLUS 30ML) 30 ml Q6H PRN PO INDIGESTION 07/10/24 16:00 08/09/24 15:59 Amlodipine Besylate (NorvASC 5MG TAB) 5 mg DAILY PO 07/11/24 09:00 08/10/24 08:59 07/12/24 12:57 5 MG Atorvastatin Calcium (LIPItor 20MG) 20 mg HS PO 07/11/24 21:00 08/10/24 20:59 07/12/24 20:45 20 MG Dextrose (D50w) 50 ml AD PRN IV HYPOGLYCEMIA PROTOCOL 07/10/24 16:00 07/12/24 14:09 DC Dextrose (D50w) 50 ml AD PRN IV HYPOGLYCEMIA PROTOCOL 07/12/24 14:30 08/11/24 14:29 Diphenhydramine HCl (BENAdryl INJ) 25 mg Q6H PRN IV SEVERE ITCHING/RASH 07/10/24 16:00 08/09/24 15:59 Famotidine (Pepcid 20mg Vial) 20 mg BID IV 07/10/24 21:00 08/09/24 20:59 07/12/24 20:45 20 MG Famotidine (Pepcid 20mg Vial) 20 mg BID PRN IV NAUSEA/VOMITING 07/10/24 16:00 07/11/24 07:39 DC Folic Acid (FOLic ACID 1 MG TABLET) 1 mg DAILY PO 07/11/24 09:00 08/10/24 08:59 07/12/24 12:57 1 MG Glucagon (Glucagon 1mg Kit) 1 mg AD PRN IM HYPOGLYCEMIA PROTOCOL 07/10/24 16:00 07/12/24 14:09 DC Glucagon (Glucagon 1mg Kit) 1 mg AD PRN IM HYPOGLYCEMIA PROTOCOL 07/12/24 14:30 08/11/24 14:29 Guaifenesin/ Dextromethorphan (RobiTUSSin DM 200/20MG 10ML) 10 ml Q4H PRN PO COUGH 07/10/24 16:00 08/09/24 15:59 Hydralazine HCl (APRESOLine 20MG INJ) 10 mg Q6H PRN IV For:SBP above 160;DBP above 90 07/10/24 16:00 08/09/24 15:59 07/11/24 04:26 10 MG Hydrochlorothiazide (hydroCHLOROthiazide 25MG) 12.5 mg DAILY PO 07/11/24 09:00 08/10/24 08:59 07/12/24 12:56 12.5 MG Insulin Human Regular (humuLIN R 100 UNIT/ML 3ML) INSULIN SLIDING SCAL... ACHS SQ 07/10/24 16:30 07/12/24 14:09 DC 07/11/24 20:36 2 UNIT Insulin Human Regular (humuLIN R 100 UNIT/ML 3ML) INSULIN SLIDING SCAL... ACHS SQ 07/12/24 16:30 08/11/24 16:29 Ketorolac Tromethamine (toRADol) 15 mg Q8H PRN IV MODERATE PAIN (4-6) 07/10/24 16:00 07/15/24 15:59 07/12/24 20:45 15 MG Lactulose (Constulose 20gm/ 30ml Udcup) 20 gm BID PRN PO CONSTIPATION 07/10/24 16:00 08/09/24 15:59 Loratadine (LORATAdine 10 mg) 10 mg DAILY PO 07/11/24 09:00 08/10/24 08:59 07/12/24 12:57 10 MG Magnesium Sulfate 50 ml @ 0 mls/hr PROTOCOL IV 07/11/24 07:30 07/12/24 14:13 DC 07/12/24 06:45 25 MLS/HR Magnesium Sulfate 50 ml @ 0 mls/hr PROTOCOL PRN IV other 07/10/24 16:00 08/09/24 15:59 Magnesium Sulfate 50 ml @ 0 mls/hr PROTOCOL PRN IV other 07/12/24 14:30 07/12/24 14:14 DC Megestrol Acetate (Megace) 400 mg DAILY PO 07/11/24 09:00 08/10/24 08:59 07/12/24 12:57 400 MG Memantine (NAmenDA 5 MG TAB) 5 mg HS PO 07/11/24 21:00 08/10/24 20:59 07/12/24 20:45 5 MG Multivitamins Therapeutic (Multivitamin Tablet) 1 tab DAILY PO 07/11/24 09:00 08/10/24 08:59 07/12/24 12:57 1 TAB Nitroglycerin (Nitrostat) 0.4 mg PROTOCOL PRN SL CHEST PAIN 07/10/24 16:00 08/09/24 15:59 Ondansetron HCl (zoFRAN 4MG INJ) 4 mg Q6H PRN IV NAUSEA/VOMITING 07/10/24 16:00 08/09/24 15:59 Oxycodone/ Acetaminophen (perCOCET) 1 tab Q6H PRN PO SEVERE PAIN (7-10) 07/10/24 16:00 07/17/24 15:59 Piperacillin Sod/ Tazobactam Sod (Zosyn 3.375gm+NS 50ml) 3.375 gm Q8H IV 07/11/24 06:00 07/11/24 05:50 DC Piperacillin Sod/ Tazobactam Sod (Zosyn 3.375gm+NS 50ml) 3.375 gm Q8H IV 07/11/24 07:00 07/21/24 06:59 07/13/24 06:24 3.375 GM Potassium Chloride 100 ml @ 100 mls/hr AD PRN IV POTASSIUM PROTOCOL 07/12/24 14:30 08/11/24 14:29 Potassium Chloride (K-Dur 10meq Sr Tab) 10 meq AD PRN PO POTASSIUM PROTOCOL 07/12/24 14:30 08/11/24 14:29 Potassium Chloride (KCl 10% Elixir 20meq/15ml) 10 meq AD PRN PO POTASSIUM PROTOCOL 07/12/24 14:30 08/11/24 14:29 07/12/24 20:46 40 MEQ Sodium Chloride 1,000 ml @ 0 mls/hr Q0M IV 07/10/24 11:30 07/12/24 14:13 DC 07/10/24 12:01 1,000 MLS/HR Sodium Chloride 1,000 ml @ 80 mls/hr [id number] IV 07/10/24 16:00 08/09/24 15:59 07/12/24 06:08 80 MLS/HR Sodium Chloride 1,000 ml @ 200 mls/hr Q5H IV 07/11/24 17:30 07/12/24 14:13 DC 07/11/24 20:32 200 MLS/HR Tramadol HCl (UltRAM) 25 mg Q8H5 PO 07/11/24 13:00 07/11/24 10:35 DC Zolpidem Tartrate (AmbIEN) 5 mg HS PRN PO INSOMNIA 07/10/24 16:00 08/09/24 15:59 Diagnostics / Radiology: [COPY/PASTE HERE IF NO REPORTS PLEASE DELETE SECTION] Assessment: [ ] Plan: [ ] 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
--- NOTE | 2024-07-13 09:36 | HMCIMG ---
Exam Type: MRI OF THE ABDOMEN with MR cholangiopancreatography Comparison Study: none History: CHOLECYSTITIS PROTOCOL: Examination is done with multiecho multiplanar sequences. LAVA with multiplanar 3-D reconstructions MR cholangiopancreatography sequences are also available for review. FINDINGS: Findings: MRCP exam- The common bile duct and right and left intrahepatic biliary ducts are normal in caliber. There are no strictures or filling defects visualized. The pancreatic duct is smooth in contour throughout. It is not dilated. The gallbladder is normal/absent. The gallbladder is hydropic and there is cholelithiasis. However, the gallbladder wall is not thickened and there is no pericholecystic fluid to indicate acute cholecystitis. The lung bases are clear. The kidneys are unremarkable. No evidence of nephro or ureterolithiasis is found. No hydronephrosis or ureteral dilatation is seen. The stomach is unremarkable. It shows no distention. No evidence of ulceration is seen. There is no inflammation. No gastric wall thickening is noted to suggest tumor. The liver is unremarkable. It shows no focal masses. The spleen shows normal size and attenuation. It is not enlarged. The pancreas shows normal appearance without masses, atrophy, or calcifications, or duct prominence. There is no peripancreatic fluid. The adrenals are normal. No masses are seen. The small and large bowel and pelvic viscera are unremarkable. The appendix is unremarkable. There is no retroperitoneal lymphadenopathy or lymphadenopathy elsewhere throughout the abdomen and pelvis. The aorta and inferior vena cava and other vascular structures are unremarkable. The bony structures unremarkable for the patient's age. The abdominopelvic wall soft tissue structures and muscular compartments are unremarkable. IMPRESSION: The gallbladder is hydropic and there is cholelithiasis. However, the gallbladder wall is not thickened and there is no pericholecystic fluid to indicate acute cholecystitis.
--- NOTE | 2024-07-13 09:40 | NUR ---
Pain med Pt is c/o of pain. 08/18. Called OR spoke to Aranza Vang RN. Aranza stated to administer the toradol.
[2024-07-13] MEDS: 0.9%NACL 1000ML 1,000 ML IV ONE (11:11)
--- NOTE | 2024-07-13 11:13 | NUR ---
Transferred to SX Pt was transferred to the OR by the OR team. Pt was on the bed on a supine position with HOB elevated. No s/s of distress.
[2024-07-13] MEDS ORDERED: BUPIvacaine/PF 0.25% 30ML VIAL IJ ONE (12:45)
[2024-07-13] MEDS ORDERED: ondanSETRON 4MG INJ ONE (13:10)
[2024-07-13] MEDS ORDERED: proPOFol 10 MG/ML 20ML VIAL IV ONE (13:10)
[2024-07-13] MEDS ORDERED: rocuRONium bROMide 10MG/1ML 5ML VL ONE (13:10)
[2024-07-13] MEDS ORDERED: FENTanyl CITRate PF 50 MCG/1 ML 2ML VIAL ONE ×2 (13:11→13:59)
[2024-07-13] MEDS ORDERED: DEXTROSE 50%-WATER 50 ML DISP.SYRIN IV PRN (13:30)
[2024-07-13] MEDS ORDERED: GLUCAGON 1MG KIT 1 MG ML IM PRN (13:30)
[2024-07-13] MEDS ORDERED: phenylEPHRINE HCL 10 MG/ML 1ML VIAL IV ONE (13:30)
--- NOTE | 2024-07-13 13:32 | PN ---
[facility] PROGRESS NOTE Date of Service: July 13, 2024 Time of Service: 13:[address] Sheth SUBJECTIVE: [07/10 [Patient is 79-year-old female with a past medical history of influenza, pneumonia, diabetes, hypertension, arthritis, osteoporosis, bronchitis, asthma, mild dementia, thrombocytopenia, who was brought to emergency department by EMS s/p fall at [facility]. Patient is complaining of headaches, upper and lower back and bilateral hip pain. Patient stated that she was taking a bath when she slipped and she fell down. Patient has been a resident of the jail for the past about three weeks due to dementia. No family member available at the bedside at this moment. Sodium 136 potassium 4.1 CO2 26 BUN 12 creatinine 0.7 GFR 88 glucose 154 calcium 8.8 CK 66 WBC 5.3 hemoglobin 12.7 hematocrit 36.2 platelets 110. UA negative for leukocytosis or nitrates. Chest x-ray showed minimal pulmonary infiltrate. CT abdomen/pelvis showed varices, distended gallbladder with gallstones, diverticulosis. Patient will be admitted under hospitalist care for further evaluation/recommendation. We will order HIDA scan to evaluate for gallstones. CT head brain, cervical, thoracic and lumbar spine CT was ordered as well. We will order bilateral hip x-ray. We will hold off of surgeon at this moment. We will wait for HIDA scan results 1st. Patient agrees with the further plan. A.m. labs 07/11 patient was seen by nurse practitioner and physician during rounding in room 406. HIDA scan came back positive for acute cholecystitis. We will consult surgeon Dr. Cordon who is on-call today for possible cholecystectomy. Patient is still complains to abdominal pain. Abdomen is very rigid and painful to touch. CT head brain was negative. CT cervical, thoracic and lumbar was negative as well we are pending bilateral hip x-ray for now. Son was sitting at the bedside next to the patient stating that normally at home patient takes tramadol 25 mg every 8 hours for chronic back pain. We will order above-stated medication. On CT abdomen/pelvis versus were showed with some diverticulosis. Patient follows GI Dr. Lozano we will consult him as well for further recommendations. Patient's potassium today is 3.5 patient will receive 40 mEq of potassium. Magnesium 1.5 patient receive 2 g of magnesium. We will continue to monitor patient in the meantime. A.m. labs 07/12 patient was seen by nurse practitioner physician during rounding in room 406. Patient was evaluated by the GI and that is pending MRCP to rule out concerns for choledocholithiasis. Also surgeon will like to performed cholecystectomy tomorrow 07/13/2024 at this moment is require medical clearance. We will continue to monitor patient in the meantime. A.m. labs Medical clearance Gautam perioperative risk 0.2% DESIRAE risk, risk of myocardial infarction or cardiac arrest, intraoperatively or up to 30 days postop is 0.2% NSQIP for procedure laparoscopy surgical, cholecystectomy Serious complication 3.2% Any complication 3.3% Pneumonia 0.2% Cardiac complication 0.4% Venous thromboembolism 0.2% Sepsis 0.5% Surgical site infection 1.3% UTI 0.9% Renal failure 0.3% Readmission 4.4% Return to OR 0.7% 0.1% Discharged to nursing or rehab facility 0.9% Patient is cleared from the medical standpoint for cholecystectomy 07/13/24 patient was seen by nurse practitioner physician during rounding in room 406. MRCP was performed on 07/13/2024 and showed the gallbladder is hydropic and there is cholelithiasis. However the gallbladder wall is not thickened and there is no pericholecystic fluid to indicate acute cholecystitis. As per surgery that will pending medical clearance for cholecystectomy. Medical clearance was given yesterday 07/12/2024. Patient is NPO and pending surgery. Case management was consulted for Gopal once patient will be medically stable. We will continue to monitor patient in the meantime. A.m. labs] REVIEW OF SYSTEMS CONSTITUTIONAL: Denies fevers, chills, or night sweats. No unintentional weight loss reported. NEUROLOGICAL: Denies headache, amaurosis fugax, motor weakness, sensory deficit, vertigo/spinning sensation, gait abnormalities, or tremors. ENT: No hearing loss, otalgia, otorrhea, rhinitis, rhinorrhea, hoarseness, or sore throat. CARDIOVASCULAR: Denies any exertional angina, dyspnea on exertion, orthopnea, paroxysmal nocturnal dyspnea, palpitations, life-threatening arrhythmias, claudication. PULMONARY: Denies any shortness of breath, cough, phlegm/sputum, hemoptysis, pleuritic chest pain. SLEEP: Denies morning headaches, daytime somnolence or napping. Denies difficul ty falling asleep, staying asleep, waking from sleep. Denies knowledge of snoring. GASTROINTESTINAL: Denies any type of dysphagia to either liquids or solids. Denies nausea, vomiting, pyrosis, early satiety, diarrhea, constipation, or changes in stool consistency or caliber. Denies coffee-ground emesis, hematemesis, hematochezia, or melanotic stools. Complains of abdominal pain GENITOURINARY: Denies frequency, urgency, nocturia, hematuria or incontinence (Storage/Irritative symptoms.) Low urinary stream, straining to void, urinary intermittency or hesitancy, splitting of the voiding stream, terminal dribbling. ENDOCRINOLOGIC: Denies polyuria, polydipsia, polyphagia or heat/cold intolerances. HEMATOLOGIC: Denies thrombophilia/previous clots, or coagulopathy/bleeding disorders. ONCOLOGIC: Denies personal history of malignancy. DERMATOLOGIC: Denies rashes or pruritus. PSYCHIATRIC: Denies any suicidal or homicidal ideation. Denies hallucinations. PHYSICAL EXAM GENERAL APPEARANCE: The patient is awake, alert, and oriented, in no acute cardiopulmonary distress. NEUROLOGICAL: Cranial nerves II-XII grossly intact. Motor is 5/5 in bilateral upper and lower extremities proximal to distal. No sensory deficits. Patient complains of headaches. Patient complains of upper and lower back pain. Patient complains of bilateral hip pain HEENT: Face is symmetric. Pupils are equal and reactive. Extraocular movements are intact. NECK: Supple. No JVD. No thyromegaly. No submental, submandibular, pre-/postauricular, occipital or supraclavicular lymphadenopathy. CHEST: Normal chest expansion. No Telemetry. LUNGS: Absence of any rales, rhonchi or any wheezing. CARDIOVASCULAR: Regular. S1 and S2 normal. No appreciable rubs, murmurs or gallops. ABDOMEN: Soft, nontender, and nondistended. There is no rebound, voluntary guarding, or rigidity. : Deferred. No Chavez. EXTREMITIES: Non-edematous and not cyanotic. No clubbing. Good capillary refill. SKIN: No skin breakdown. Vital Signs (last 8hr) Date Time Temp Pulse Resp B/P (MAP) Pulse Ox O2 Delivery O2 Flow Rate FiO2 5/5/25 11:15 97.9 87 18 179/75 98 Room Air 07/13/24 08:12 98.4 87 18 164/80 98 LABS: Laboratory: Test 07/13/24 11:24 07/13/24 03:37 Range/Units Whole Blood Glucose 89 70-110 MG/DL White Blood Count 5.8 4.8-10.8 K/uL Red Blood Count 3.21 L 4.00-5.50 MIL/uL Hemoglobin 11.1 L 12.0-16.0 g/dL Hematocrit 31.9 L 36-48 % Mean Corpuscular Volume 99.4 H 79-99 fL Mean Corpuscular Hemoglobin 34.6 H 27.0-33.0 pg Mean Corpuscular Hemoglobin Concent 34.8 32.0-36.0 g/dL Red Cell Distribution Width 14.0 11.0-15.5 % Platelet Count 100 L 130-400 K/uL Mean Platelet Volume 11.7 H 7.5-10.5 fL Immature Granulocyte % (Auto) 0.3 0-1 % Neutrophils (%) (Auto) 51.2 40.0-77.0 % Lymphocytes (%) (Auto) 31.8 21.0-51.0 % Monocytes (%) (Auto) 8.3 3.0-13.0 % Eosinophils (%) (Auto) 8.1 H 0.0-8.0 % Basophils (%) (Auto) 0.3 0.0-5.0 % Neutrophils # (Auto) 3.0 1.8-7.7 K/uL Lymphocytes # (Auto) 1.9 1.0-4.8 K/uL Monocytes # (Auto) 0.5 0.1-1.0 K/uL Eosinophils # (Auto) 0.47 0.00-0.70 K/uL Basophils # (Auto) 0.02 0.00-0.20 K/uL Absolute Immature Granulocyte (auto 0.02 0-1 K/uL Nucleated Red Blood Cells 0.0 0.0-0.19 % Prothrombin Time 11.7 H 9.6-11.6 SEC Prothromb Time International Ratio 1.12 0.85-1.15 Sodium Level 138 136-145 mmol/L Potassium Level 4.7 3.5-5.1 mmol/L Chloride Level 110 101-111 mmol/L Carbon Dioxide Level 21 21-32 mmol/L Blood Urea Nitrogen 12 7-18 mg/dL Creatinine 0.8 0.5-1.0 mg/dL Glomerular Filtration Rate Calc 75 >90 mL/min Random Glucose 101 70-105 mg/dL Total Calcium 7.7 L 8.5-10.1 mg/dL Magnesium Level 2.50 H 1.80-2.40 mg/dL Total Bilirubin 1.2 #H 0.2-1.0 mg/dL Direct Bilirubin 0.4 H 0.0-0.3 mg/dL Aspartate Amino Transf (AST/SGOT) 43 H 10-37 U/L Alanine Aminotransferase (ALT/SGPT) 27 12-78 U/L Alkaline Phosphatase 94 # 50-136 U/L B-Type Natriuretic Peptide 98 0-100 pg/mL Total Protein 6.0 6.0-8.3 g/dL Albumin 2.0 L 3.5-5.0 g/dL Current Medications Medications (Trade) Dose Ordered Sig/Daily Route PRN Reason Start Time Stop Time Status Last Admin Dose Admin Acetaminophen (TYLenol 325MG TAB) 650 mg Q4H PRN PO MILD PAIN (1-3) 07/10/24 16:00 08/09/24 15:59 Acetaminophen (TYLenol 325MG TAB) 650 mg Q6H PRN PO MILD PAIN (1-3) 07/10/24 16:00 07/12/24 14:13 DC Acetaminophen (TYLenol 325MG TAB) 650 mg Q6H PRN PO TEMPERATURE GREATER THAN 101.5 07/10/24 16:00 08/09/24 15:59 Al Hydroxide/Mg Hydroxide (MAALox PLUS 30ML) 30 ml Q6H PRN PO INDIGESTION 07/10/24 16:00 08/09/24 15:59 Amlodipine Besylate (NorvASC 5MG TAB) 5 mg DAILY PO 07/11/24 09:00 08/10/24 08:59 07/12/24 12:57 5 MG Atorvastatin Calcium (LIPItor 20MG) 20 mg HS PO 07/11/24 21:00 08/10/24 20:59 07/12/24 20:45 20 MG Dextrose (D50w) 50 ml AD PRN IV HYPOGLYCEMIA PROTOCOL 07/10/24 16:00 07/12/24 14:09 DC Dextrose (D50w) 50 ml AD PRN IV HYPOGLYCEMIA PROTOCOL 07/12/24 14:30 08/11/24 14:29 Diphenhydramine HCl (BENAdryl INJ) 25 mg Q6H PRN IV SEVERE ITCHING/RASH 07/10/24 16:00 08/09/24 15:59 Famotidine (Pepcid 20mg Vial) 20 mg BID IV 07/10/24 21:00 08/09/24 20:59 07/13/24 09:00 20 MG Famotidine (Pepcid 20mg Vial) 20 mg BID PRN IV NAUSEA/VOMITING 07/10/24 16:00 07/11/24 07:39 DC Folic Acid (FOLic ACID 1 MG TABLET) 1 mg DAILY PO 07/11/24 09:00 08/10/24 08:59 07/12/24 12:57 1 MG Glucagon (Glucagon 1mg Kit) 1 mg AD PRN IM HYPOGLYCEMIA PROTOCOL 07/10/24 16:00 07/12/24 14:09 DC Glucagon (Glucagon 1mg Kit) 1 mg AD PRN IM HYPOGLYCEMIA PROTOCOL 07/12/24 14:30 08/11/24 14:29 Guaifenesin/ Dextromethorphan (RobiTUSSin DM 200/20MG 10ML) 10 ml Q4H PRN PO COUGH 07/10/24 16:00 08/09/24 15:59 Hydralazine HCl (APRESOLine 20MG INJ) 10 mg Q6H PRN IV For:SBP above 160;DBP above 90 07/10/24 16:00 08/09/24 15:59 07/11/24 04:26 10 MG Hydrochlorothiazide (hydroCHLOROthiazide 25MG) 12.5 mg DAILY PO 07/11/24 09:00 08/10/24 08:59 07/12/24 12:56 12.5 MG Insulin Human Regular (humuLIN R 100 UNIT/ML 3ML) INSULIN SLIDING SCAL... ACHS SQ 07/10/24 16:30 07/12/24 14:09 DC 07/11/24 20:36 2 UNIT Insulin Human Regular (humuLIN R 100 UNIT/ML 3ML) INSULIN SLIDING SCAL... ACHS SQ 07/12/24 16:30 08/11/24 16:29 Ketorolac Tromethamine (toRADol) 15 mg Q8H PRN IV MODERATE PAIN (4-6) 07/10/24 16:00 07/15/24 15:59 07/13/24 09:51 15 MG Lactulose (Constulose 20gm/ 30ml Udcup) 20 gm BID PRN PO CONSTIPATION 07/10/24 16:00 08/09/24 15:59 Loratadine (LORATAdine 10 mg) 10 mg DAILY PO 07/11/24 09:00 08/10/24 08:59 07/12/24 12:57 10 MG Magnesium Sulfate 50 ml @ 0 mls/hr PROTOCOL IV 07/11/24 07:30 07/12/24 14:13 DC 07/12/24 06:45 25 MLS/HR Magnesium Sulfate 50 ml @ 0 mls/hr PROTOCOL PRN IV other 07/10/24 16:00 08/09/24 15:59 Magnesium Sulfate 50 ml @ 0 mls/hr PROTOCOL PRN IV other 07/12/24 14:30 07/12/24 14:14 DC Megestrol Acetate (Megace) 400 mg DAILY PO 07/11/24 09:00 08/10/24 08:59 07/12/24 12:57 400 MG Memantine (NAmenDA 5 MG TAB) 5 mg HS PO 07/11/24 21:00 08/10/24 20:59 07/12/24 20:45 5 MG Multivitamins Therapeutic (Multivitamin Tablet) 1 tab DAILY PO 07/11/24 09:00 08/10/24 08:59 07/12/24 12:57 1 TAB Nitroglycerin (Nitrostat) 0.4 mg PROTOCOL PRN SL CHEST PAIN 07/10/24 16:00 08/09/24 15:59 Ondansetron HCl (zoFRAN 4MG INJ) 4 mg Q6H PRN IV NAUSEA/VOMITING 07/10/24 16:00 08/09/24 15:59 Oxycodone/ Acetaminophen (perCOCET) 1 tab Q6H PRN PO SEVERE PAIN (7-10) 07/10/24 16:00 07/17/24 15:59 Piperacillin Sod/ Tazobactam Sod (Zosyn 3.375gm+NS 50ml) 3.375 gm Q8H IV 07/11/24 06:00 07/11/24 05:50 DC Piperacillin Sod/ Tazobactam Sod (Zosyn 3.375gm+NS 50ml) 3.375 gm Q8H IV 07/11/24 07:00 07/21/24 06:59 07/13/24 06:24 3.375 GM Potassium Chloride 100 ml @ 100 mls/hr AD PRN IV POTASSIUM PROTOCOL 07/12/24 14:30 08/11/24 14:29 Potassium Chloride (K-Dur 10meq Sr Tab) 10 meq AD PRN PO POTASSIUM PROTOCOL 07/12/24 14:30 08/11/24 14:29 Potassium Chloride (KCl 10% Elixir 20meq/15ml) 10 meq AD PRN PO POTASSIUM PROTOCOL 07/12/24 14:30 08/11/24 14:29 07/12/24 20:46 40 MEQ Sodium Chloride 1,000 ml @ 0 mls/hr Q0M IV 07/10/24 11:30 07/12/24 14:13 DC 07/10/24 12:01 1,000 MLS/HR Sodium Chloride 1,000 ml @ 80 mls/hr [id number] IV 07/10/24 16:00 08/09/24 15:59 07/12/24 06:08 80 MLS/HR Sodium Chloride 1,000 ml @ 200 mls/hr Q5H IV 07/11/24 17:30 07/12/24 14:13 DC 07/11/24 20:32 200 MLS/HR Tramadol HCl (UltRAM) 25 mg Q8H5 PO 07/11/24 13:00 07/11/24 10:35 DC Zolpidem Tartrate (AmbIEN) 5 mg HS PRN PO INSOMNIA 07/10/24 16:00 08/09/24 15:59 DIAGNOSTICS / RADIOLOGY: [ ] ASSESSMENT: [ S/p fall POA Acute pain to upper, lower back, abdomen, bilateral hips POA Acute cholecystitis per HIDA scan POA Possible choledocholithiasis POA Cholelithiasis as per MRCP 07/13/2024 Uncontrolled hypertension POA Multifactorial anemia POA Thrombocytopenia POA Uncontrolled diabetes mellitus type 2 with hypoglycemia POA Varices per CT abdomen/pelvis POA Distended gallbladder with gallstones per CT abdomen/pelvis POA Diverticulosis per CT abdomen/pelvis POA Debilitation POA Arthritis POA Osteoporosis POA Became this POA Asthma POA Dementia POA ] PLAN: [ Admit to: Medical-surgical floor Consults: Surgeon consulted for cholecystitis, GI for hepatic steatosis Antibiotics: None at this moment Tests: cholecystectomy with Dr. Cordon 07/13/2024 NEURO: CT head brain negative Minimize central acting medications as possible. Fall Precautions. Well lighted room through the day and minimize interruptions through the night to prevent acute delirium. PULMONARY: Chest x-ray minimal pulmonary infiltrate Supplemental 02 as needed BiPAP as necessary, for respiratory distress Titrate Fio2 to keep Spo2 > or = 90% DuoNebs and CPT as needed IS hourly while awake for pulmonary hygiene Out of bed to chair as tolerated VAP Bundle Maintain aspiration precautions at all times CARDIOVASCULAR: Follow hemodynamics. Vital signs per facility protocol GI & NUTRITION: Possible surgery for cholecystectomy 07/13/[address] Cordon MRCP showed the gallbladder is hydropic and there is cholelithiasis. However the gallbladder wall is not thickened and there is no pericholecystic fluid to indicate acute cholecystitis. HIDA scan showed acute cholecystitis CT abdomen/pelvis showed varices, distended gallbladder with gallstones, diverticulosis Continue nutritional support Aspirations precautions Prokinetic agents and laxatives as needed KIDNEYS & ELECTROLYTES: Patient receive 2 g of magnesium Patient received 40 mEq of potassium Strict monitoring of intake and output Daily weights Avoid nephrotoxic agents Monitor electrolytes and replace as needed Goal urine output of 30mL/hr or 0.5mL/kg/hr Medications to be dosed according to renal function. Avoid contrast if possible ENDOCRINE: Maintain blood glucose between 100-180 at all times. Insulin sliding scale for blood glucose management Hypoglycemia and hyperglycemia protocol in place INFECTIOUS DISEASE: Trend temperature, WBC and procalcitonin level Follow cultures, deescalate antibiotics as soon as possible. Panculture if new onset fever HEMATOLOGY & COAGULATION: Monitor H&H. Keep Hgb > 7 Transfuse 1 unit of PRBC for Hgb < 7 Transfuse 1 pack of platelets of platelets < 20, 000 Watch for any signs and symptoms of bleeding SKIN: Pressure ulcer prevention per facility protocol Specialty mattress as needed Bilateral hip x-ray pending Lumbar CT spine showed compression fracture throughout the thoracic spine was at T11 and T12. Age indeterminate Thoracic CT spine showed compression fracture throughout the thoracic spine was at T11 and T12. Age indeterminate Cervical CT spine no fracture seen DJD Treatment plan discussed with patient and family at the bedside Medications to be reconciled once obtained by patient and/or family and available to be reconciled in computer p.r.n. medication for pain nausea and vomiting Questions were answered We will continue to monitor the patient closely Cnc Service Technician for disposition Rehab: PT/OT GI: PPI DVT: SCD's Code Status: Full Resuscitation Disposition: [facility] Prognosis: Guarded] ATTESTATION BY PHYSICIAN I have seen and examined the patient. I reviewed the documentation, medical decision making, and treatment plan as noted by the mid-level provider above. I agree with the findings and plan of care. GREG SHETH MD, [employer]AT[employer]YNA [employer] July 13, 2024 13:32
[2024-07-13] MEDS: BUPIvacaine/PF 0.25% 30ML VIAL IJ ONE (13:52)
[2024-07-13] MEDS ORDERED: NEOSTIGMINE METHYLSULFATE 1MG/ML IV ONE (13:59)
[2024-07-13] MEDS ORDERED: GLYCOPYRROLATE 0.2 MG/ML 5 ML VIAL ONE (13:59)
--- NOTE | 2024-07-13 14:05 | OP ---
Operative Note: DATE OF PROCEDURE: 07/13/24 SURGEON: GILBERT ROUSE MD ARCHITECT: [] ANESTHESIA: [] General ANESTHESIOLOGIST/PAEDIATRICIAN: [] PREOPERATIVE DIAGNOSIS: [] Acute cholecystitis POSTOPERATIVE DIAGNOSIS: [] The same SYNOPSIS: [] PROCEDURE: [] Laparoscopic cholecystectomy ESTIMATED BLOOD LOSS: [] Minimal INDICATIONS: [] DESCRIPTION OF PROCEDURE: []]With the patient prepped in the usual fashion a supraumbilical incision was additionally directed to meet with placement of the trocar and abdomen insufflated. Three 5 mm trochars were placed in the right upper quadrant under direct vision. The gallbladder was exposed adhesions were taken down and I dissected triangle of Calot. I had to decompress the gallbladder because of severe inflammation The cystic duct was clearly identified was triple clipped and divided and the cystic artery was double clipped and divided. I took the gallbladder from the liver using cautery dissection and after removed from the liver bed I placed an in a bag. I cauterized the liver bed and I placed 40 cc of Marcaine 0.25% in the side of the abdomen as an abdominal tap block under direct vision. And after adequate hemostasis and irrigation I removed all the trochars under direct vision and the gallbladder was removed from the supraumbilical incision. After removing the gallbladder I placed interrupted [id number] Vicryl's and the fascia. All incisions were closed with mahendra Patient was stable at the end of the procedure GILBERT ROUSE MD July 13, 2024 14:05
[2024-07-13] MEDS: ketOROlac 15MG/ML VIAL (15MG/ML) ONE (14:21)
[2024-07-13] MEDS: morPHINE 2 MG SYG ONE (14:23)
--- NOTE | 2024-07-13 15:04 | NUR ---
Returned from surgery Pt was transferred into the medsurg unit from SX. Post cholecystectomy. No s/s of distress. Pt is resting comfortably in bed with family member at bedside.
[2024-07-13] MEDS: INSULIN humuLIN R 100 UNIT/ML 3ML SQ SCH (16:30)
[2024-07-13] MEDS: oxyCODONE/aceTAMIN 5/325MG TAB PO PRN (21:30)
[2024-07-14] VITALS (8 sets, daily range): BP systolic 107–146; BP diastolic 44–71; PULSE 83–106; RESP 16–18; TEMP 98–98.8; O2SAT 95
[2024-07-14] MEDS: SIMETHICONE 80 MG TAB.CHEW PO ONE
[2024-07-14 05:20] LABS: BASOPHILS # (AUTO) 0.03 K/uL (0.00-0.20); BASOPHILS % (AUTO) 0.3 % (0.0-5.0); EOSINOPHILS # (AUTO) 0.08 K/uL (0.00-0.70); EOSINOPHILS % (AUTO) 0.9 % (0.0-8.0); HEMATOCRIT 27.1 % (36-48); IMMATURE GRANULOCYTE ABSOLUTE 0.04 K/uL (0-1); LYMPHOCYTES # (AUTO) 2.1 K/uL (1.0-4.8); LYMPHOCYTES % (AUTO) 23.9 % (21.0-51.0); MEAN CORPUSCULAR HEMOGLOBIN 34.1 pg (27.0-33.0); MEAN CORPUSCULAR HGB CONC 33.2 g/dL (32.0-36.0); MEAN CORPUSCULAR VOLUME 102.7 fL (79-99); MONOCYTES # (AUTO) 1.2 K/uL (0.1-1.0); MONOCYTES % (AUTO) 13.1 % (3.0-13.0); NEUTROPHILS # (AUTO) 5.5 K/uL (1.8-7.7); NEUTROPHILS % (AUTO) 61.4 % (40.0-77.0); PLATELET COUNT (AUTO) 137 K/uL (130-400); RED BLOOD CELL COUNT(AUTO) 2.64 MIL/uL (4.00-5.50); RED CELL DISTRIBUTION WIDTH 14.5 % (11.0-15.5)
[2024-07-14 05:29] LABS: ALBUMIN 1.9 g/dL (3.5-5.0); BILIRUBIN,TOTAL 0.8 mg/dL (0.2-1.0); CREATININE 1.5 mg/dL (0.5-1.0); MAGNESIUM 2.1 mg/dL (1.80-2.40); POTASSIUM 5.1 mmol/L (3.5-5.1); TOTAL PROTEIN, SERUM 5.9 g/dL (6.0-8.3)
--- NOTE | 2024-07-14 10:20 | NUR ---
PT sitting in chair RADIO STATION OPERATOR Liborio noted bleeding at incision site near umbilicus; 4x4 applied covered w/ occlusive dressing. 0 s/s of distress noted.
--- NOTE | 2024-07-14 12:40 | PN ---
GASTROENTEROLOGY PROGRESS NOTE Date of Visit: July 14, 2024 Time of Visit: 12:39 Events / Notes: [ ] Review of Systems: CONSTITUTIONAL: No malaise or change in sensation of wellbeing. ENMT: No rhinorrhea, otorrhea, sinus pain, ear ache. CARDIOVASCULAR: No angina, palpitations, orthopnea or paroxysmal dyspnea. RESPIRATORY: No SOB. GASTROINTESTINAL: No abdominal pain, nausea, vomiting, diarrhea, hematemesis, melena or change in the patient's habitual bowel movements consistency/number. GENITOURINARY: No dysuria, hematuria or change in bladder continence. MUSCULOSKELETAL: No new muscle pain or decrease in muscular strength. No new joint swelling, redness or tenderness. SKIN: No new rash. Physical Exam: GEN: Awake, alert, oriented in person, time and place, and in no acute distress. HEENT: No sinus tenderness. Tympanic membranes were not examined. No rhinorrhea. Oral pharyngeal mucosa is pink, moist and within normal limits. Neck is supple with no cervical lymphadenopathy, thyromegaly or JVD. CHEST: Inspection, palpation and percussion of the chest were unremarkable. Lung auscultation revealed normal breath sounds bilaterally. CARDIAC: PMI is within normal limits. Heart sounds are regular. Normal S1, S2. No gallop or murmur. ABD: Soft, non-tender and not distended. No peritoneal signs on palpation. No organomegaly. Normal bowel sounds. EXT: No cyanosis or clubbing. No edema. SKIN: Intact. No rashes. JOINTS: No evidence of synovitis or acute arthritis. NEURO: Alert and oriented to name, place and person. Cranial nerve examination is unremarkable. No focal motor deficits. Normal speech. Gait is normal. Strength is normal. Vital Signs (last 8hr) Date Time Temp Pulse Resp B/P (MAP) Pulse Ox O2 Delivery O2 Flow Rate FiO2 07/14/24 08:00 98.8 83 17 107/44 97 Nasal Cannula 2.0 Laboratory: [ ] Laboratory: Test 07/14/24 12:34 07/14/24 05:00 07/13/24 03:37 Range/Units Whole Blood Glucose 242 H 70-110 MG/DL White Blood Count 9.0 4.8-10.8 K/uL Red Blood Count 2.64 L 4.00-5.50 MIL/uL Hemoglobin 9.0 L 12.0-16.0 g/dL Hematocrit 27.1 L 36-48 % Mean Corpuscular Volume 102.7 H 79-99 fL Mean Corpuscular Hemoglobin 34.1 H 27.0-33.0 pg Mean Corpuscular Hemoglobin Concent 33.2 32.0-36.0 g/dL Red Cell Distribution Width 14.5 11.0-15.5 % Platelet Count 137 # 130-400 K/uL Mean Platelet Volume 11.3 H 7.5-10.5 fL Immature Granulocyte % (Auto) 0.4 0-1 % Neutrophils (%) (Auto) 61.4 40.0-77.0 % Lymphocytes (%) (Auto) 23.9 21.0-51.0 % Monocytes (%) (Auto) 13.1 H 3.0-13.0 % Eosinophils (%) (Auto) 0.9 0.0-8.0 % Basophils (%) (Auto) 0.3 0.0-5.0 % Neutrophils # (Auto) 5.5 1.8-7.7 K/uL Lymphocytes # (Auto) 2.1 1.0-4.8 K/uL Monocytes # (Auto) 1.2 H 0.1-1.0 K/uL Eosinophils # (Auto) 0.08 0.00-0.70 K/uL Basophils # (Auto) 0.03 0.00-0.20 K/uL Absolute Immature Granulocyte (auto 0.04 0-1 K/uL Nucleated Red Blood Cells 0.0 0.0-0.19 % Sodium Level 139 136-145 mmol/L Potassium Level 5.1 3.5-5.1 mmol/L Chloride Level 111 101-111 mmol/L Carbon Dioxide Level 18 L 21-32 mmol/L Blood Urea Nitrogen 20 H 7-18 mg/dL Creatinine 1.5 H 0.5-1.0 mg/dL Glomerular Filtration Rate Calc 35 >90 mL/min Random Glucose 179 H 70-105 mg/dL Total Calcium 7.2 L 8.5-10.1 mg/dL Magnesium Level 2.10 1.80-2.40 mg/dL Total Bilirubin 0.8 0.2-1.0 mg/dL Aspartate Amino Transf (AST/SGOT) 98 H 10-37 U/L Alanine Aminotransferase (ALT/SGPT) 43 12-78 U/L Alkaline Phosphatase 85 50-136 U/L B-Type Natriuretic Peptide 95 0-100 pg/mL Total Protein 5.9 L 6.0-8.3 g/dL Albumin 1.9 L 3.5-5.0 g/dL Prothrombin Time 11.7 H 9.6-11.6 SEC Prothromb Time International Ratio 1.12 0.85-1.15 Direct Bilirubin 0.4 H 0.0-0.3 mg/dL Current Medications Medications (Trade) Dose Ordered Sig/Daily Route PRN Reason Start Time Stop Time Status Last Admin Dose Admin Acetaminophen (TYLenol 325MG TAB) 650 mg Q4H PRN PO MILD PAIN (1-3) 07/10/24 16:00 08/09/24 15:59 Acetaminophen (TYLenol 325MG TAB) 650 mg Q6H PRN PO MILD PAIN (1-3) 07/10/24 16:00 07/12/24 14:13 DC Acetaminophen (TYLenol 325MG TAB) 650 mg Q6H PRN PO TEMPERATURE GREATER THAN 101.5 07/10/24 16:00 08/09/24 15:59 Al Hydroxide/Mg Hydroxide (MAALox PLUS 30ML) 30 ml Q6H PRN PO INDIGESTION 07/10/24 16:00 08/09/24 15:59 Amlodipine Besylate (NorvASC 5MG TAB) 5 mg DAILY PO 07/11/24 09:00 08/10/24 08:59 07/14/24 09:54 5 MG Atorvastatin Calcium (LIPItor 20MG) 20 mg HS PO 07/11/24 21:00 08/10/24 20:59 07/13/24 21:29 20 MG Dextrose (D50w) 50 ml AD PRN IV HYPOGLYCEMIA PROTOCOL 07/10/24 16:00 07/12/24 14:09 DC Dextrose (D50w) 50 ml AD PRN IV HYPOGLYCEMIA PROTOCOL 07/12/24 14:30 07/13/24 13:26 DC Dextrose (D50w) 50 ml AD PRN IV HYPOGLYCEMIA PROTOCOL 07/13/24 13:30 08/12/24 13:29 Diphenhydramine HCl (BENAdryl INJ) 25 mg Q6H PRN IV SEVERE ITCHING/RASH 07/10/24 16:00 08/09/24 15:59 Famotidine (Pepcid 20mg Vial) 20 mg BID IV 07/10/24 21:00 07/14/24 07:10 DC 07/13/24 21:29 20 MG Famotidine (Pepcid 20mg Vial) 20 mg BID PRN IV NAUSEA/VOMITING 07/10/24 16:00 07/11/24 07:39 DC Famotidine (Pepcid 20mg Vial) 20 mg Q24H IV 07/14/24 21:00 08/09/24 20:59 Folic Acid (FOLic ACID 1 MG TABLET) 1 mg DAILY PO 07/11/24 09:00 08/10/24 08:59 07/14/24 09:55 1 MG Glucagon (Glucagon 1mg Kit) 1 mg AD PRN IM HYPOGLYCEMIA PROTOCOL 07/10/24 16:00 07/12/24 14:09 DC Glucagon (Glucagon 1mg Kit) 1 mg AD PRN IM HYPOGLYCEMIA PROTOCOL 07/12/24 14:30 07/13/24 13:26 DC Glucagon (Glucagon 1mg Kit) 1 mg AD PRN IM HYPOGLYCEMIA PROTOCOL 07/13/24 13:30 08/12/24 13:29 Guaifenesin/ Dextromethorphan (RobiTUSSin DM 200/20MG 10ML) 10 ml Q4H PRN PO COUGH 07/10/24 16:00 08/09/24 15:59 Hydralazine HCl (APRESOLine 20MG INJ) 10 mg Q6H PRN IV For:SBP above 160;DBP above 90 07/10/24 16:00 08/09/24 15:59 07/11/24 04:26 10 MG Hydrochlorothiazide (hydroCHLOROthiazide 25MG) 12.5 mg DAILY PO 07/11/24 09:00 08/10/24 08:59 07/14/24 09:55 12.5 MG Insulin Human Regular (humuLIN R 100 UNIT/ML 3ML) INSULIN SLIDING SCAL... ACHS SQ 07/10/24 16:30 07/12/24 14:09 DC 07/11/24 20:36 2 UNIT Insulin Human Regular (humuLIN R 100 UNIT/ML 3ML) INSULIN SLIDING SCAL... ACHS SQ 07/12/24 16:30 07/13/24 13:26 DC Insulin Human Regular (humuLIN R 100 UNIT/ML 3ML) INSULIN SLIDING SCAL... ACHS SQ 07/13/24 16:30 08/12/24 16:29 Ketorolac Tromethamine (toRADol) 15 mg Q8H PRN IV MODERATE PAIN (4-6) 07/10/24 16:00 07/15/24 15:59 07/13/24 17:42 15 MG Lactulose (Constulose 20gm/ 30ml Udcup) 20 gm BID PRN PO CONSTIPATION 07/10/24 16:00 08/09/24 15:59 Loratadine (LORATAdine 10 mg) 10 mg DAILY PO 07/11/24 09:00 08/10/24 08:59 07/14/24 09:55 10 MG Magnesium Sulfate 50 ml @ 0 mls/hr PROTOCOL IV 07/11/24 07:30 07/12/24 14:13 DC 07/12/24 06:45 25 MLS/HR Magnesium Sulfate 50 ml @ 0 mls/hr PROTOCOL PRN IV other 07/10/24 16:00 08/09/24 15:59 Magnesium Sulfate 50 ml @ 0 mls/hr PROTOCOL PRN IV other 07/12/24 14:30 07/12/24 14:14 DC Megestrol Acetate (Megace) 400 mg DAILY PO 07/11/24 09:00 08/10/24 08:59 07/14/24 09:55 400 MG Memantine (NAmenDA 5 MG TAB) 5 mg HS PO 07/11/24 21:00 08/10/24 20:59 07/13/24 21:29 5 MG Multivitamins Therapeutic (Multivitamin Tablet) 1 tab DAILY PO 07/11/24 09:00 08/10/24 08:59 07/14/24 09:54 1 TAB Nitroglycerin (Nitrostat) 0.4 mg PROTOCOL PRN SL CHEST PAIN 07/10/24 16:00 08/09/24 15:59 Ondansetron HCl (zoFRAN 4MG INJ) 4 mg Q6H PRN IV NAUSEA/VOMITING 07/10/24 16:00 08/09/24 15:59 Oxycodone/ Acetaminophen (perCOCET) 1 tab Q6H PRN PO SEVERE PAIN (7-10) 07/10/24 16:00 07/17/24 15:59 07/14/24 10:06 1 TAB Piperacillin Sod/ Tazobactam Sod (Zosyn 3.375gm+NS 50ml) 3.375 gm Q8H IV 07/11/24 06:00 07/11/24 05:50 DC Piperacillin Sod/ Tazobactam Sod (Zosyn 3.375gm+NS 50ml) 3.375 gm Q8H IV 07/11/24 07:00 07/21/24 06:59 07/14/24 06:20 3.375 GM Potassium Chloride 100 ml @ 100 mls/hr AD PRN IV POTASSIUM PROTOCOL 07/12/24 14:30 08/11/24 14:29 Potassium Chloride (K-Dur 10meq Sr Tab) 10 meq AD PRN PO POTASSIUM PROTOCOL 07/12/24 14:30 08/11/24 14:29 Potassium Chloride (KCl 10% Elixir 20meq/15ml) 10 meq AD PRN PO POTASSIUM PROTOCOL 07/12/24 14:30 08/11/24 14:29 07/12/24 20:46 40 MEQ Sodium Chloride 1,000 ml @ 0 mls/hr Q0M IV 07/10/24 11:30 07/12/24 14:13 DC 07/10/24 12:01 1,000 MLS/HR Sodium Chloride 1,000 ml @ 80 mls/hr [id number] IV 07/10/24 16:00 08/09/24 15:59 07/13/24 21:38 80 MLS/HR Sodium Chloride 1,000 ml @ 200 mls/hr Q5H IV 07/11/24 17:30 07/12/24 14:13 DC 07/11/24 20:32 200 MLS/HR Tramadol HCl (UltRAM) 25 mg Q8H5 PO 07/11/24 13:00 07/11/24 10:35 DC Zolpidem Tartrate (AmbIEN) 5 mg HS PRN PO INSOMNIA 07/10/24 16:00 08/09/24 15:59 Diagnostics / Radiology: [COPY/PASTE HERE IF NO REPORTS PLEASE DELETE SECTION] Assessment: [ ] Plan: [ ] 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
[2024-07-14] MEDS: LACTULOSE 20 GM/30 ML UDCUP PO PRN (13:13)
--- NOTE | 2024-07-14 13:20 | PN ---
[facility] PROGRESS NOTE Date of Service: July 14, 2024 Time of Service: 13:[address] Sheth SUBJECTIVE: [07/10 [Patient is 79-year-old female with a past medical history of influenza, pneumonia, diabetes, hypertension, arthritis, osteoporosis, bronchitis, asthma, mild dementia, thrombocytopenia, who was brought to emergency department by EMS s/p fall at [facility]. Patient is complaining of headaches, upper and lower back and bilateral hip pain. Patient stated that she was taking a bath when she slipped and she fell down. Patient has been a resident of the snf for the past about three weeks due to dementia. No family member available at the bedside at this moment. Sodium 136 potassium 4.1 CO2 26 BUN 12 creatinine 0.7 GFR 88 glucose 154 calcium 8.8 CK 66 WBC 5.3 hemoglobin 12.7 hematocrit 36.2 platelets 110. UA negative for leukocytosis or nitrates. Chest x-ray showed minimal pulmonary infiltrate. CT abdomen/pelvis showed varices, distended gallbladder with gallstones, diverticulosis. Patient will be admitted under hospitalist care for further evaluation/recommendation. We will order HIDA scan to evaluate for gallstones. CT head brain, cervical, thoracic and lumbar spine CT was ordered as well. We will order bilateral hip x-ray. We will hold off of surgeon at this moment. We will wait for HIDA scan results 1st. Patient agrees with the further plan. A.m. labs 07/11 patient was seen by nurse practitioner and physician during rounding in room 406. HIDA scan came back positive for acute cholecystitis. We will consult surgeon Dr. Cordon who is on-call today for possible cholecystectomy. Patient is still complains to abdominal pain. Abdomen is very rigid and painful to touch. CT head brain was negative. CT cervical, thoracic and lumbar was negative as well we are pending bilateral hip x-ray for now. Son was sitting at the bedside next to the patient stating that normally at home patient takes tramadol 25 mg every 8 hours for chronic back pain. We will order above-stated medication. On CT abdomen/pelvis versus were showed with some diverticulosis. Patient follows GI Dr. Lozano we will consult him as well for further recommendations. Patient's potassium today is 3.5 patient will receive 40 mEq of potassium. Magnesium 1.5 patient receive 2 g of magnesium. We will continue to monitor patient in the meantime. A.m. labs 07/12 patient was seen by nurse practitioner physician during rounding in room 406. Patient was evaluated by the GI and that is pending MRCP to rule out concerns for choledocholithiasis. Also surgeon will like to performed cholecystectomy tomorrow 07/13/2024 at this moment is require medical clearance. We will continue to monitor patient in the meantime. A.m. labs Medical clearance Gautam perioperative risk 0.2% DESIRAE risk, risk of myocardial infarction or cardiac arrest, intraoperatively or up to 30 days postop is 0.2% NSQI for procedure laparoscopy surgical, cholecystectomy Serious complication 3.2% Any complication 3.3% Pneumonia 0.2% Cardiac complication 0.4% Venous thromboembolism 0.2% Sepsis 0.5% Surgical site infection 1.3% UTI 0.9% Renal failure 0.3% Readmission 4.4% Return to OR 0.7% 0.1% Discharged to nursing or rehab facility 0.9% Patient is cleared from the medical standpoint for cholecystectomy 07/13/24 patient was seen by nurse practitioner physician during rounding in room 406. MRCP was performed on 07/13/2024 and showed the gallbladder is hydropic and there is cholelithiasis. However the gallbladder wall is not thickened and there is no pericholecystic fluid to indicate acute cholecystitis. As per surgery that will pending medical clearance for cholecystectomy. Medical clearance was given yesterday 07/12/2024. Patient is NPO and pending surgery. Case management was consulted for Gopal once patient will be medically stable. We will continue to monitor patient in the meantime. A.m. labs 07/14/24 patient was seen by nurse practitioner physician during rounding in room 406. Patient is s/p cholecystectomy with Dr. Cordon on 07/13/2024. Nurse practitioner was able to free talk to GI and at this moment they went proceed with any procedures follow-up in1 to 2 weeks. During rounding nurse practitioner realized that the patient is bleeding profusely from the side where the surgery was just performed. She call Luis ICT SUPPORT ENGINEER from Dr. Cordon and he was able to come and see delayed. The bleed was possibly due to accumulation s/p surgery. Bleeding was stopped. We will continue to monitor patient in the meantime. A.m. labs] REVIEW OF SYSTEMS CONSTITUTIONAL: Denies fevers, chills, or night sweats. No unintentional weight loss reported. NEUROLOGICAL: Denies headache, amaurosis fugax, motor weakness, sensory deficit, vertigo/spinning sensation, gait abnormalities, or tremors. ENT: No hearing loss, otalgia, otorrhea, rhinitis, rhinorrhea, hoarseness, or sore throat. CARDIOVASCULAR: Denies any exertional angina, dyspnea on exertion, orthopnea, paroxysmal nocturnal dyspnea, palpitations, life-threatening arrhythmias, claudication. PULMONARY: Denies any shortness of breath, cough, phlegm/sputum, hemoptysis, pleuritic chest pain. SLEEP: Denies morning headaches, daytime somnolence or napping. Denies difficulty falling asleep, staying asleep, waking from sleep. Denies knowledge of snoring. GASTROINTESTINAL: Denies any type of dysphagia to either liquids or solids. Denies nausea, vomiting, pyrosis, early satiety, diarrhea, constipation, or changes in stool consistency or caliber. Denies coffee-ground emesis, hematemesis, hematochezia, or melanotic stools. Complains of abdominal pain GENITOURINARY: Denies frequency, urgency, nocturia, hematuria or incontinence (Storage/Irritative symptoms.) Low urinary stream, straining to void, urinary intermittency or hesitancy, splitting of the voiding stream, terminal dribbling. ENDOCRINOLOGIC: Denies polyuria, polydipsia, polyphagia or heat/cold intolerances. HEMATOLOGIC: Denies thrombophilia/previous clots, or coagulopathy/bleeding disorders. ONCOLOGIC: Denies personal history of malignancy. DERMATOLOGIC: Denies rashes or pruritus. PSYCHIATRIC: Denies any suicidal or homicidal ideation. Denies hallucinations. PHYSICAL EXAM GENERAL APPEARANCE: The patient is awake, alert, and oriented, in no acute cardiopulmonary distress. NEUROLOGICAL: Cranial nerves II-XII grossly intact. Motor is 5/5 in bilateral upper and lower extremities proximal to distal. No sensory deficits. Patient sent headaches. Patient complains of abdominal pain. Patient complains of bilateral hip pain HEENT: Face is symmetric. Pupils are equal and reactive. Extraocular movements are intact. NECK: Supple. No JVD. No thyromegaly. No submental, submandibular, pre- /postauricular, occipital or supraclavicular lymphadenopathy. CHEST: Normal chest expansion. No Telemetry. LUNGS: Absence of any rales, rhonchi or any wheezing. CARDIOVASCULAR: Regular. S1 and S2 normal. No appreciable rubs, murmurs or gallops. ABDOMEN: Soft, nontender, and nondistended. There is no rebound, voluntary guarding, or rigidity. : Deferred. No Chavez. EXTREMITIES: Non-edematous and not cyanotic. No clubbing. Good capillary ref ill. SKIN: No skin breakdown. Vital Signs (last 8hr) Date Time Temp Pulse Resp B/P (MAP) Pulse Ox O2 Delivery O2 Flow Rate FiO2 07/14/24 12:00 98.1 87 16 122/71 95 Room Air 07/14/24 08:00 98.8 83 17 107/44 97 Nasal Cannula 2.0 LABS: Laboratory: Test 07/14/24 12:34 07/14/24 05:00 07/13/24 03:37 Range/Units Whole Blood Glucose 242 H 70-110 MG/DL White Blood Count 9.0 4.8-10.8 K/uL Red Blood Count 2.64 L 4.00-5.50 MIL/uL Hemoglobin 9.0 L 12.0-16.0 g/dL Hematocrit 27.1 L 36-48 % Mean Corpuscular Volume 102.7 H 79-99 fL Mean Corpuscular Hemoglobin 34.1 H 27.0-33.0 pg Mean Corpuscular Hemoglobin Concent 33.2 32.0-36.0 g/dL Red Cell Distribution Width 14.5 11.0-15.5 % Platelet Count 137 # 130-400 K/uL Mean Platelet Volume 11.3 H 7.5-10.5 fL Immature Granulocyte % (Auto) 0.4 0-1 % Neutrophils (%) (Auto) 61.4 40.0-77.0 % Lymphocytes (%) (Auto) 23.9 21.0-51.0 % Monocytes (%) (Auto) 13.1 H 3.0-13.0 % Eosinophils (%) (Auto) 0.9 0.0-8.0 % Basophils (%) (Auto) 0.3 0.0-5.0 % Neutrophils # (Auto) 5.5 1.8-7.7 K/uL Lymphocytes # (Auto) 2.1 1.0-4.8 K/uL Monocytes # (Auto) 1.2 H 0.1-1.0 K/uL Eosinophils # (Auto) 0.08 0.00-0.70 K/uL Basophils # (Auto) 0.03 0.00-0.20 K/uL Absolute Immature Granulocyte (auto 0.04 0-1 K/uL Nucleated Red Blood Cells 0.0 0.0-0.19 % Sodium Level 139 136-145 mmol/L Potassium Level 5.1 3.5-5.1 mmol/L Chloride Level 111 101-111 mmol/L Carbon Dioxide Level 18 L 21-32 mmol/L Blood Urea Nitrogen 20 H 7-18 mg/dL Creatinine 1.5 H 0.5-1.0 mg/dL Glomerular Filtration Rate Calc 35 >90 mL/min Random Glucose 179 H 70-105 mg/dL Total Calcium 7.2 L 8.5-10.1 mg/dL Magnesium Level 2.10 1.80-2.40 mg/dL Total Bilirubin 0.8 0.2-1.0 mg/dL Aspartate Amino Transf (AST/SGOT) 98 H 10-37 U/L Alanine Aminotransferase (ALT/SGPT) 43 12-78 U/L Alkaline Phosphatase 85 50-136 U/L B-Type Natriuretic Peptide 95 0-100 pg/mL Total Protein 5.9 L 6.0-8.3 g/dL Albumin 1.9 L 3.5-5.0 g/dL Prothrombin Time 11.7 H 9.6-11.6 SEC Prothromb Time International Ratio 1.12 0.85-1.15 Direct Bilirubin 0.4 H 0.0-0.3 mg/dL Current Medications Medications (Trade) Dose Ordered Sig/Daily Route PRN Reason Start Time Stop Time Status Last Admin Dose Admin Acetaminophen (TYLenol 325MG TAB) 650 mg Q4H PRN PO MILD PAIN (1-3) 07/10/24 16:00 08/09/24 15:59 Acetaminophen (TYLenol 325MG TAB) 650 mg Q6H PRN PO MILD PAIN (1-3) 07/10/24 16:00 07/12/24 14:13 DC Acetaminophen (TYLenol 325MG TAB) 650 mg Q6H PRN PO TEMPERATURE GREATER THAN 101.5 07/10/24 16:00 08/09/24 15:59 Al Hydroxide/Mg Hydroxide (MAALox PLUS 30ML) 30 ml Q6H PRN PO INDIGESTION 07/10/24 16:00 08/09/24 15:59 Amlodipine Besylate (NorvASC 5MG TAB) 5 mg DAILY PO 07/11/24 09:00 08/10/24 08:59 07/14/24 09:54 5 MG Atorvastatin Calcium (LIPItor 20MG) 20 mg HS PO 07/11/24 21:00 08/10/24 20:59 07/13/24 21:29 20 MG Dextrose (D50w) 50 ml AD PRN IV HYPOGLYCEMIA PROTOCOL 07/10/24 16:00 07/12/24 14:09 DC Dextrose (D50w) 50 ml AD PRN IV HYPOGLYCEMIA PROTOCOL 07/12/24 14:30 07/13/24 13:26 DC Dextrose (D50w) 50 ml AD PRN IV HYPOGLYCEMIA PROTOCOL 07/13/24 13:30 08/12/24 13:29 Diphenhydramine HCl (BENAdryl INJ) 25 mg Q6H PRN IV SEVERE ITCHING/RASH 07/10/24 16:00 08/09/24 15:59 Famotidine (Pepcid 20mg Vial) 20 mg BID IV 07/10/24 21:00 07/14/24 07:10 DC 07/13/24 21:29 20 MG Famotidine (Pepcid 20mg Vial) 20 mg BID PRN IV NAUSEA/VOMITING 07/10/24 16:00 07/11/24 07:39 DC Famotidine (Pepcid 20mg Vial) 20 mg Q24H IV 07/14/24 21:00 08/09/24 20:59 Folic Acid (FOLic ACID 1 MG TABLET) 1 mg DAILY PO 07/11/24 09:00 08/10/24 08:59 07/14/24 09:55 1 MG Glucagon (Glucagon 1mg Kit) 1 mg AD PRN IM HYPOGLYCEMIA PROTOCOL 07/10/24 16:00 07/12/24 14:09 DC Glucagon (Glucagon 1mg Kit) 1 mg AD PRN IM HYPOGLYCEMIA PROTOCOL 07/12/24 14:30 07/13/24 13:26 DC Glucagon (Glucagon 1mg Kit) 1 mg AD PRN IM HYPOGLYCEMIA PROTOCOL 07/13/24 13:30 08/12/24 13:29 Guaifenesin/ Dextromethorphan (RobiTUSSin DM 200/20MG 10ML) 10 ml Q4H PRN PO COUGH 07/10/24 16:00 08/09/24 15:59 Hydralazine HCl (APRESOLine 20MG INJ) 10 mg Q6H PRN IV For:SBP above 160;DBP above 90 07/10/24 16:00 08/09/24 15:59 07/11/24 04:26 10 MG Hydrochlorothiazide (hydroCHLOROthiazide 25MG) 12.5 mg DAILY PO 07/11/24 09:00 08/10/24 08:59 07/14/24 09:55 12.5 MG Insulin Human Regular (humuLIN R 100 UNIT/ML 3ML) INSULIN SLIDING SCAL... ACHS SQ 07/10/24 16:30 07/12/24 14:09 DC 07/11/24 20:36 2 UNIT Insulin Human Regular (humuLIN R 100 UNIT/ML 3ML) INSULIN SLIDING SCAL... ACHS SQ 07/12/24 16:30 07/13/24 13:26 DC Insulin Human Regular (humuLIN R 100 UNIT/ML 3ML) INSULIN SLIDING SCAL... ACHS SQ 07/13/24 16:30 08/12/24 16:29 Ketorolac Tromethamine (toRADol) 15 mg Q8H PRN IV MODERATE PAIN (4-6) 07/10/24 16:00 07/15/24 15:59 07/13/24 17:42 15 MG Lactulose (Constulose 20gm/ 30ml Udcup) 20 gm BID PRN PO CONSTIPATION 07/10/24 16:00 08/09/24 15:59 07/14/24 13:13 20 GM Loratadine (LORATAdine 10 mg) 10 mg DAILY PO 07/11/24 09:00 08/10/24 08:59 07/14/24 09:55 10 MG Magnesium Sulfate 50 ml @ 0 mls/hr PROTOCOL IV 07/11/24 07:30 07/12/24 14:13 DC 07/12/24 06:45 25 MLS/HR Magnesium Sulfate 50 ml @ 0 mls/hr PROTOCOL PRN IV other 07/10/24 16:00 08/09/24 15:59 Magnesium Sulfate 50 ml @ 0 mls/hr PROTOCOL PRN IV other 07/12/24 14:30 07/12/24 14:14 DC Megestrol Acetate (Megace) 400 mg DAILY PO 07/11/24 09:00 08/10/24 08:59 07/14/24 09:55 400 MG Memantine (NAmenDA 5 MG TAB) 5 mg HS PO 07/11/24 21:00 08/10/24 20:59 07/13/24 21:29 5 MG Multivitamins Therapeutic (Multivitamin Tablet) 1 tab DAILY PO 07/11/24 09:00 08/10/24 08:59 07/14/24 09:54 1 TAB Nitroglycerin (Nitrostat) 0.4 mg PROTOCOL PRN SL CHEST PAIN 07/10/24 16:00 08/09/24 15:59 Ondansetron HCl (zoFRAN 4MG INJ) 4 mg Q6H PRN IV NAUSEA/VOMITING 07/10/24 16:00 08/09/24 15:59 Oxycodone/ Acetaminophen (perCOCET) 1 tab Q6H PRN PO SEVERE PAIN (7-10) 07/10/24 16:00 07/17/24 15:59 07/14/24 10:06 1 TAB Piperacillin Sod/ Tazobactam Sod (Zosyn 3.375gm+NS 50ml) 3.375 gm Q8H IV 07/11/24 06:00 07/11/24 05:50 DC Piperacillin Sod/ Tazobactam Sod (Zosyn 3.375gm+NS 50ml) 3.375 gm Q8H IV 07/11/24 07:00 07/21/24 06:59 07/14/24 06:20 3.375 GM Potassium Chloride 100 ml @ 100 mls/hr AD PRN IV POTASSIUM PROTOCOL 07/12/24 14:30 08/11/24 14:29 Potassium Chloride (K-Dur 10meq Sr Tab) 10 meq AD PRN PO POTASSIUM PROTOCOL 07/12/24 14:30 08/11/24 14:29 Potassium Chloride (KCl 10% Elixir 20meq/15ml) 10 meq AD PRN PO POTASSIUM PROTOCOL 07/12/24 14:30 08/11/24 14:29 07/12/24 20:46 40 MEQ Sodium Chloride 1,000 ml @ 0 mls/hr Q0M IV 07/10/24 11:30 07/12/24 14:13 DC 07/10/24 12:01 1,000 MLS/HR Sodium Chloride 1,000 ml @ 80 mls/hr [id number] IV 07/10/24 16:00 08/09/24 15:59 07/13/24 21:38 80 MLS/HR Sodium Chloride 1,000 ml @ 200 mls/hr Q5H IV 07/11/24 17:30 07/12/24 14:13 DC 07/11/24 20:32 200 MLS/HR Tramadol HCl (UltRAM) 25 mg Q8H5 PO 07/11/24 13:00 07/11/24 10:35 DC Zolpidem Tartrate (AmbIEN) 5 mg HS PRN PO INSOMNIA 07/10/24 16:00 08/09/24 15:59 DIAGNOSTICS / RADIOLOGY: [ ] ASSESSMENT: [ S/p fall POA Acute pain to upper, lower back, abdomen, bilateral hips POA Acute cholecystitis per HIDA scan POA S/p cholecystectomy 07/13/2024 Possible choledocholithiasis POA Cholelithiasis as per MRCP 07/13/2024 Uncontrolled hypertension POA Multifactorial anemia POA Thrombocytopenia POA Uncontrolled diabetes mellitus type 2 with hypoglycemia POA Varices per CT abdomen/pelvis POA Distended gallbladder with gallstones per CT abdomen/pelvis POA Diverticulosis per CT abdomen/pelvis POA Debilitation POA Arthritis POA Osteoporosis POA Became this POA Asthma POA Dementia POA ] PLAN: [ Admit to: Medical-surgical floor Consults: Surgeon consulted for cholecystitis, GI for hepatic steatosis Antibiotics: None at this moment Tests: None NEURO: CT head brain negative Minimize central acting medications as possible. Fall Precautions. Well lighted room through the day and minimize interruptions through the night to prevent acute delirium. PULMONARY: Chest x-ray minimal pulmonary infiltrate Supplemental 02 as needed BiPAP as necessary, for respiratory distress Titrate Fio2 to keep Spo2 > or = 90% DuoNebs and CPT as needed IS hourly while awake for pulmonary hygiene Out of bed to chair as tolerated VAP Bundle Maintain aspiration precautions at all times CARDIOVASCULAR: Follow hemodynamics. Vital signs per facility protocol GI & NUTRITION: cholecystectomy 07/13/[address] Cordon MRCP showed the gallbladder is hydropic and there is cholelithiasis. However the gallbladder wall is not thickened and there is no pericholecystic fluid to indicate acute cholecystitis. HIDA scan showed acute cholecystitis CT abdomen/pelvis showed varices, distended gallbladder with gallstones, diverticulosis Continue nutritional support Aspirations precautions Prokinetic agents and laxatives as needed KIDNEYS & ELECTROLYTES: Patient receive 2 g of magnesium Patient received 40 mEq of potassium Strict monitoring of intake and output Daily weights Avoid nephrotoxic agents Monitor electrolytes and replace as needed Goal urine output of 30mL/hr or 0.5mL/kg/hr Medications to be dosed according to renal function. Avoid contrast if possible ENDOCRINE: Maintain blood glucose between 100-180 at all times. Insulin sliding scale for blood glucose management Hypoglycemia and hyperglycemia protocol in place INFECTIOUS DISEASE: Trend temperature, WBC and procalcitonin level Follow cultures, deescalate antibiotics as soon as possible. Panculture if new onset fever HEMATOLOGY & COAGULATION: Monitor H&H. Keep Hgb > 7 Transfuse 1 unit of PRBC for Hgb < 7 Transfuse 1 pack of platelets of platelets < 20, 000 Watch for any signs and symptoms of bleeding SKIN: Pressure ulcer prevention per facility protocol Specialty mattress as needed Bilateral hip x-ray pending Lumbar CT spine showed compression fracture throughout the thoracic spine was at T11 and T12. Age indeterminate Thoracic CT spine showed compression fracture throughout the thoracic spine was at T11 and T12. Age indeterminate Cervical CT spine no fracture seen DJD Treatment plan discussed with patient and family at the bedside Medications to be reconciled once obtained by patient and/or family and available to be reconciled in computer p.r.n. medication for pain nausea and vomiting Questions were answered We will continue to monitor the patient closely Phlebotomy Supervisor for disposition Rehab: PT/OT GI: PPI DVT: SCD's Code Status: Full Resuscitation Disposition: [facility] Prognosis: Guarded] ATTESTATION BY PHYSICIAN I have seen and examined the patient. I reviewed the documentation, medical decision making, and treatment plan as noted by the mid-level provider above. I agree with the findings and plan of care. GREG SHETH MD, [employer] July 14, 2024 13:20
[2024-07-14 15:13] LABS: BASOPHILS # (AUTO) 0.03 K/uL (0.00-0.20); BASOPHILS % (AUTO) 0.3 % (0.0-5.0); EOSINOPHILS # (AUTO) 0.12 K/uL (0.00-0.70); HEMATOCRIT 26.6 % (36-48); IMMATURE GRANULOCYTE ABSOLUTE 0.07 K/uL (0-1); LYMPHOCYTES # (AUTO) 2.3 K/uL (1.0-4.8); LYMPHOCYTES % (AUTO) 20.2 % (21.0-51.0); MEAN CORPUSCULAR HEMOGLOBIN 34.4 pg (27.0-33.0); MEAN CORPUSCULAR HGB CONC 33.5 g/dL (32.0-36.0); MEAN CORPUSCULAR VOLUME 102.7 fL (79-99); MONOCYTES # (AUTO) 1.8 K/uL (0.1-1.0); MONOCYTES % (AUTO) 15.5 % (3.0-13.0); NEUTROPHILS # (AUTO) 7.2 K/uL (1.8-7.7); NEUTROPHILS % (AUTO) 62.4 % (40.0-77.0); PLATELET COUNT (AUTO) 144 K/uL (130-400); RED BLOOD CELL COUNT(AUTO) 2.59 MIL/uL (4.00-5.50); RED CELL DISTRIBUTION WIDTH 14.7 % (11.0-15.5); WHITE BLOOD COUNT (AUTO) 11.5 K/uL (4.8-10.8)
[2024-07-14 15:17] LABS: ABG OXYGEN SATURATION 81.8 % (94.0-98.0); BASE EXCESS,VENOUS BLOOD GAS -9.8 (-2.0-3.0); DEVICE COMMENT LAB DRAWN; HCO3,VENOUS BLOOD GAS 16.1 (22.0-29.0); PCO2,VENOUS BLOOD GAS 35 (38-54); PH,VENOUS BLOOD GAS 7.277 (7.320-7.430); PO2,VENOUS BLOOD GAS 51.2 mmHg (23.0-48.0); VENT MODE, BG N (ROOM AIR)
[2024-07-14 15:28] LABS: CREATININE 1.7 mg/dL (0.5-1.0); POTASSIUM 4.7 mmol/L (3.5-5.1)
[2024-07-14 15:31] LABS: ALBUMIN 2.2 g/dL (3.5-5.0); BILIRUBIN,TOTAL 0.8 mg/dL (0.2-1.0); MAGNESIUM 1.9 mg/dL (1.80-2.40); TOTAL PROTEIN, SERUM 6.4 g/dL (6.0-8.3)
--- NOTE | 2024-07-14 15:39 | NUR ---
Dr Sheth Spoke to Dr. Sheth regarding pts VBGs results. Dr. Sheth placed orders to administer Sodium Bicarbonate & if low hgbs order CT scan stat.
--- NOTE | 2024-07-14 16:46 | HMCIMG ---
CT ABDOMEN PELVIS WITHOUT CONTRAST Clinical Information: anemia, abdominal distension, s/p cholecystectomy Comparison: July 10, 2024 CT PROTOCOL: Routine noncontrast helical scanning of the abdomen and pelvis was performed at 5mm collimation. Findings: No evidence of nephro or ureterolithiasis is found. No hydronephrosis or ureteral dilatation is seen. Passive atelectasis of the dependent portions of both lung bases is seen. The stomach is unremarkable. It shows no wall thickening. No gross ulceration is seen. It is not overly distended. There are no surrounding inflammatory changes. No wall lesions are identified to suggest cancer. The spleen is enlarged. The liver is irregular in contour consistent with given history of cirrhosis. There are splenic hilar varices and varices of the gastroesophageal junction. There is mild perihepatic ascites. These findings are consistent with portal venous hypertension. The pancreas shows normal anatomy. It is not fatty replaced. It shows no lesions. The pancreatic duct is not dilated. The gallbladder has been recently removed. Minimal fluid is noted within the gallbladder fossa and this is not unexpected in base of recent cholecystectomy. The adrenal glands are unremarkable. There is no enlargement. No lesions are noted. The appendix is unremarkable. It shows no evidence of inflammation. No appendicolith is seen. The small bowel is unremarkable. There is no evidence of dilatation to suggest obstruction. No evidence of adynamic ileus is seen. There is no small bowel wall thickening to suggest enteritis. Abundant fecal matter is noted throughout the colon consistent with constipation. The urinary bladder is unremarkable. There is no wall thickening to suggest tumor or inflammation. There are no intraluminal calculi. There are no diverticula. There is no evidence of chronic bladder outlet obstruction. There is no evidence of urinary bladder distention to suggest urinary retention. The other pelvic structures are unremarkable. The bony and vascular structures are unremarkable for the patient's age. IMPRESSION: Findings consistent with cirrhosis and portal venous hypertension. Findings consistent with history of recent cholecystectomy. This study was performed using dose reduction techniques to include automated exposure control and/or adjustment of the mA and/or kV according to patient size to include automated exposure control and/or adjustment of the mA and/or kV according to patient size.
[2024-07-14] MEDS: SODIUM BICARBONATE 650 MG TAB PO SCH (17:59)
[2024-07-14] MEDS: SODIUM BICARB 50MEQ 50ML VIAL IV ONE (18:22)
[2024-07-14 20:52] LABS: HEMATOCRIT 26.6 % (36-48); MEAN CORPUSCULAR HEMOGLOBIN 34.1 pg (27.0-33.0); MEAN CORPUSCULAR HGB CONC 33.8 g/dL (32.0-36.0); MEAN CORPUSCULAR VOLUME 100.8 fL (79-99); RED BLOOD CELL COUNT(AUTO) 2.64 MIL/uL (4.00-5.50); RED CELL DISTRIBUTION WIDTH 14.5 % (11.0-15.5); WHITE BLOOD COUNT (AUTO) 11.3 K/uL (4.8-10.8)
[2024-07-14] MEDS: FAMOTIDINE 20MG VIAL IV SCH (21:01)
--- NOTE | 2024-07-14 23:21 | NUR ---
PATIENT CONTINUES WITH DISTENDED ABDOMEN AND NOT PASSING GAS. NO RESULT FROM LACTULOSE GIVEN. CONTACTED DR ROUSE TO SEE IF HE HAD ANY FURTHER ORDERS, HE SAID TO CONTACT HOSPITALIST. PAGED HOSPITALIST MATTRESS STUFFER VIA ANSWERING SERVICE, SPOKE TO JEANCARLOS JUNG NP. BRIEF REPORT ON PT GIVEN. NOTIFIED HER OF VENOUS ABG AND CT ABD/PEL RESULTS DONE IN AFTERNOON. ORDERS RECEIVED FOR IMETHATCONE AND A FLEET ENEMA. NOTIFIED PATIENT/FAMILY MEMBER AT BEDSIDE OF NEW ORDERS.
--- NOTE | 2024-07-14 23:58 | NUR ---
FLEET ENEMA GIVEN
[2024-07-15] VITALS (7 sets, daily range): BP systolic 145–154; BP diastolic 59–70; PULSE 102–111; RESP 19–22; TEMP 98.3–98.9; O2SAT 96–98
[2024-07-15] MEDS: SIMETHICONE 80 MG TAB.CHEW PO ONE (00:08)
--- NOTE | 2024-07-15 04:00 | NUR ---
PLANNING INTERN REPORTS PATIENT HAD ONLY A VERY SMALL STOOL BALL WHEN SHE WIPED HER. OTHER PERSAUD SHE URINATED WELL ON BRIEF.
[2024-07-15 04:23] LABS: BASOPHILS # (AUTO) 0.03 K/uL (0.00-0.20); BASOPHILS % (AUTO) 0.3 % (0.0-5.0); EOSINOPHILS # (AUTO) 0.14 K/uL (0.00-0.70); EOSINOPHILS % (AUTO) 1.2 % (0.0-8.0); HEMATOCRIT 25.3 % (36-48); IMMATURE GRANULOCYTE ABSOLUTE 0.04 K/uL (0-1); LYMPHOCYTES # (AUTO) 2.2 K/uL (1.0-4.8); LYMPHOCYTES % (AUTO) 19.3 % (21.0-51.0); MEAN CORPUSCULAR HEMOGLOBIN 34.4 pg (27.0-33.0); MEAN CORPUSCULAR HGB CONC 34.4 g/dL (32.0-36.0); MONOCYTES # (AUTO) 1.8 K/uL (0.1-1.0); MONOCYTES % (AUTO) 15.5 % (3.0-13.0); NEUTROPHILS # (AUTO) 7.2 K/uL (1.8-7.7); NEUTROPHILS % (AUTO) 63.3 % (40.0-77.0); PLATELET COUNT (AUTO) 162 K/uL (130-400); RED BLOOD CELL COUNT(AUTO) 2.53 MIL/uL (4.00-5.50); RED CELL DISTRIBUTION WIDTH 14.5 % (11.0-15.5); WHITE BLOOD COUNT (AUTO) 11.3 K/uL (4.8-10.8)
[2024-07-15 04:38] LABS: ALBUMIN 2.3 g/dL (3.5-5.0); CREATININE 1.3 mg/dL (0.5-1.0); MAGNESIUM 2.4 mg/dL (1.80-2.40); POTASSIUM 3.7 mmol/L (3.5-5.1); TOTAL PROTEIN, SERUM 6.6 g/dL (6.0-8.3)
--- NOTE | 2024-07-15 11:36 | PN ---
GASTROENTEROLOGY PROGRESS NOTE Date of Visit: July 15, 2024 Time of Visit: 11:36 Events / Notes: [ ] Review of Systems: CONSTITUTIONAL: No malaise or change in sensation of wellbeing. ENMT: No rhinorrhea, otorrhea, sinus pain, ear ache. CARDIOVASCULAR: No angina, palpitations, orthopnea or paroxysmal dyspnea. RESPIRATORY: No SOB. GASTROINTESTINAL: No abdominal pain, nausea, vomiting, diarrhea, hematemesis, melena or change in the patient's habitual bowel movements consistency/number. GENITOURINARY: No dysuria, hematuria or change in bladder continence. MUSCULOSKELETAL: No new muscle pain or decrease in muscular strength. No new joint swelling, redness or tenderness. SKIN: No new rash. Physical Exam: GEN: Awake, alert, oriented in person, time and place, and in no acute distress. HEENT: No sinus tenderness. Tympanic membranes were not examined. No rhinorrhea. Oral pharyngeal mucosa is pink, moist and within normal limits. Neck is supple with no cervical lymphadenopathy, thyromegaly or JVD. CHEST: Inspection, palpation and percussion of the chest were unremarkable. Lung auscultation revealed normal breath sounds bilaterally. CARDIAC: PMI is within normal limits. Heart sounds are regular. Normal S1, S2. No gallop or murmur. ABD: Soft, non-tender and not distended. No peritoneal signs on palpation. No organomegaly. Normal bowel sounds. EXT: No cyanosis or clubbing. No edema. SKIN: Intact. No rashes. JOINTS: No evidence of synovitis or acute arthritis. NEURO: Alert and oriented to name, place and person. Cranial nerve examination is unremarkable. No focal motor deficits. Normal speech. Gait is normal. Strength is normal. Vital Signs (last 8hr) Date Time Temp Pulse Resp B/P (MAP) Pulse Ox O2 Delivery O2 Flow Rate FiO2 07/15/24 08:00 98.2 108 20 154/67 96 Room Air 21 07/15/24 04:00 98.8 109 19 146/66 96 Nasal Cannula 2.0 Laboratory: [ ] Laboratory: Test 07/15/24 05:15 07/15/24 03:53 07/14/24 15:15 07/14/24 15:00 Range/Units Whole Blood Glucose 184 H 70-110 MG/DL White Blood Count 11.3 H 4.8-10.8 K/uL Red Blood Count 2.53 L 4.00-5.50 MIL/uL Hemoglobin 8.7 L 12.0-16.0 g/dL Hematocrit 25.3 L 36-48 % Mean Corpuscular Volume 100.0 H 79-99 fL Mean Corpuscular Hemoglobin 34.4 H 27.0-33.0 pg Mean Corpuscular Hemoglobin Concent 34.4 32.0-36.0 g/dL Red Cell Distribution Width 14.5 11.0-15.5 % Platelet Count 162 130-400 K/uL Mean Platelet Volume 11.4 H 7.5-10.5 fL Immature Granulocyte % (Auto) 0.4 0-1 % Neutrophils (%) (Auto) 63.3 40.0-77.0 % Lymphocytes (%) (Auto) 19.3 L 21.0-51.0 % Monocytes (%) (Auto) 15.5 H 3.0-13.0 % Eosinophils (%) (Auto) 1.2 0.0-8.0 % Basophils (%) (Auto) 0.3 0.0-5.0 % Neutrophils # (Auto) 7.2 1.8-7.7 K/uL Lymphocytes # (Auto) 2.2 1.0-4.8 K/uL Monocytes # (Auto) 1.8 H 0.1-1.0 K/uL Eosinophils # (Auto) 0.14 0.00-0.70 K/uL Basophils # (Auto) 0.03 0.00-0.20 K/uL Absolute Immature Granulocyte (auto 0.04 0-1 K/uL Nucleated Red Blood Cells 0.0 0.0-0.19 % Sodium Level 141 136-145 mmol/L Potassium Level 3.7 3.5-5.1 mmol/L Chloride Level 110 101-111 mmol/L Carbon Dioxide Level 23 21-32 mmol/L Blood Urea Nitrogen 27 H 7-18 mg/dL Creatinine 1.3 H 0.5-1.0 mg/dL Glomerular Filtration Rate Calc 42 >90 mL/min Random Glucose 183 H 70-105 mg/dL Total Calcium 7.7 L 8.5-10.1 mg/dL Magnesium Level 2.40 1.80-2.40 mg/dL Total Bilirubin 1.0 # 0.2-1.0 mg/dL Aspartate Amino Transf (AST/SGOT) 127 H 10-37 U/L Alanine Aminotransferase (ALT/SGPT) 62 12-78 U/L Alkaline Phosphatase 97 50-136 U/L B-Type Natriuretic Peptide 75 0-100 pg/mL Total Protein 6.6 6.0-8.3 g/dL Albumin 2.3 L 3.5-5.0 g/dL Blood Gas Specimen Type Venous Arterial Blood Oxygen Saturation 81.8 L 94.0-98.0 % Venous Blood pH 7.277 L 7.320-7.430 Venous Blood pCO2 at Patient Temp 35 L 38-54 Venous Blood pO2 at Patient Temp 51.2 H 23.0-48.0 mmHg Venous Blood HCO3 16.1 L 22.0-29.0 Venous Blood Base Excess -9.8 L -2.0-3.0 Venous Blood Total Hemoglobin 10.2 L 12.0-16.0 Sodium (Blood Gas) 134 L 136-145 MMOL/L Bedside Potassium (Blood Gas) 4.6 H 3.4-4.5 MMOL/L Bedside Chloride (Blood Gas) 113 H 98-107 MMOL/L Bedside Glucose (Blood Gas) 224 H 65-95 MG/DL Bedside Ionized Calcium (Blood Gas) 1.06 L 1.15-1.33 MMOL/L Bedside Lactic Acid (Blood Gas) 3.94 *H 0.36-0.75 MMOL/L Blood Gas Temperature 37.0 35.5-37.0 CELSIUS Blood Gas Vent Mode N ROOM AIR FiO2 21.0 % Blood Gas Specimen Comment LAB DRAWN White Cell Morphology Comment See comments Current Medications Medications (Trade) Dose Ordered Sig/Daily Route PRN Reason Start Time Stop Time Status Last Admin Dose Admin Acetaminophen (TYLenol 325MG TAB) 650 mg Q4H PRN PO MILD PAIN (1-3) 07/10/24 16:00 08/09/24 15:59 Acetaminophen (TYLenol 325MG TAB) 650 mg Q6H PRN PO MILD PAIN (1-3) 07/10/24 16:00 07/12/24 14:13 DC Acetaminophen (TYLenol 325MG TAB) 650 mg Q6H PRN PO TEMPERATURE GREATER THAN 101.5 07/10/24 16:00 08/09/24 15:59 Al Hydroxide/Mg Hydroxide (MAALox PLUS 30ML) 30 ml Q6H PRN PO INDIGESTION 07/10/24 16:00 08/09/24 15:59 Amlodipine Besylate (NorvASC 5MG TAB) 5 mg DAILY PO 07/11/24 09:00 08/10/24 08:59 07/15/24 09:27 5 MG Atorvastatin Calcium (LIPItor 20MG) 20 mg HS PO 07/11/24 21:00 08/10/24 20:59 07/14/24 21:01 20 MG Dextrose (D50w) 50 ml AD PRN IV HYPOGLYCEMIA PROTOCOL 07/10/24 16:00 07/12/24 14:09 DC Dextrose (D50w) 50 ml AD PRN IV HYPOGLYCEMIA PROTOCOL 07/12/24 14:30 07/13/24 13:26 DC Dextrose (D50w) 50 ml AD PRN IV HYPOGLYCEMIA PROTOCOL 07/13/24 13:30 08/12/24 13:29 Diphenhydramine HCl (BENAdryl INJ) 25 mg Q6H PRN IV SEVERE ITCHING/RASH 07/10/24 16:00 08/09/24 15:59 Famotidine (Pepcid 20mg Vial) 20 mg BID IV 07/10/24 21:00 07/14/24 07:10 DC 07/13/24 21:29 20 MG Famotidine (Pepcid 20mg Vial) 20 mg BID PRN IV NAUSEA/VOMITING 07/10/24 16:00 07/11/24 07:39 DC Famotidine (Pepcid 20mg Vial) 20 mg Q24H IV 07/14/24 21:00 08/09/24 20:59 07/14/24 21:01 20 MG Folic Acid (FOLic ACID 1 MG TABLET) 1 mg DAILY PO 07/11/24 09:00 08/10/24 08:59 07/15/24 09:27 1 MG Glucagon (Glucagon 1mg Kit) 1 mg AD PRN IM HYPOGLYCEMIA PROTOCOL 07/10/24 16:00 07/12/24 14:09 DC Glucagon (Glucagon 1mg Kit) 1 mg AD PRN IM HYPOGLYCEMIA PROTOCOL 07/12/24 14:30 07/13/24 13:26 DC Glucagon (Glucagon 1mg Kit) 1 mg AD PRN IM HYPOGLYCEMIA PROTOCOL 07/13/24 13:30 08/12/24 13:29 Guaifenesin/ Dextromethorphan (RobiTUSSin DM 200/20MG 10ML) 10 ml Q4H PRN PO COUGH 07/10/24 16:00 08/09/24 15:59 Hydralazine HCl (APRESOLine 20MG INJ) 10 mg Q6H PRN IV For:SBP above 160;DBP above 90 07/10/24 16:00 08/09/24 15:59 07/11/24 04:26 10 MG Hydrochlorothiazide (hydroCHLOROthiazide 25MG) 12.5 mg DAILY PO 07/11/24 09:00 08/10/24 08:59 07/15/24 09:27 12.5 MG Insulin Human Regular (humuLIN R 100 UNIT/ML 3ML) INSULIN SLIDING SCAL... ACHS SQ 07/10/24 16:30 07/12/24 14:09 DC 07/11/24 20:36 2 UNIT Insulin Human Regular (humuLIN R 100 UNIT/ML 3ML) INSULIN SLIDING SCAL... ACHS SQ 07/12/24 16:30 07/13/24 13:26 DC Insulin Human Regular (humuLIN R 100 UNIT/ML 3ML) INSULIN SLIDING SCAL... ACHS SQ 07/13/24 16:30 08/12/24 16:29 07/15/24 06:35 2 UNIT Ketorolac Tromethamine (toRADol) 15 mg Q8H PRN IV MODERATE PAIN (4-6) 07/10/24 16:00 07/15/24 15:59 07/15/24 06:29 15 MG Lactulose (Constulose 20gm/ 30ml Udcup) 20 gm BID PRN PO CONSTIPATION 07/10/24 16:00 08/09/24 15:59 07/15/24 09:27 20 GM Loratadine (LORATAdine 10 mg) 10 mg DAILY PO 07/11/24 09:00 08/10/24 08:59 07/15/24 09:27 10 MG Magnesium Sulfate 50 ml @ 0 mls/hr PROTOCOL IV 07/11/24 07:30 07/12/24 14:13 DC 07/12/24 06:45 25 MLS/HR Magnesium Sulfate 50 ml @ 0 mls/hr PROTOCOL PRN IV other 07/10/24 16:00 08/09/24 15:59 Magnesium Sulfate 50 ml @ 0 mls/hr PROTOCOL PRN IV other 07/12/24 14:30 07/12/24 14:14 DC Megestrol Acetate (Megace) 400 mg DAILY PO 07/11/24 09:00 08/10/24 08:59 07/15/24 09:27 400 MG Memantine (NAmenDA 5 MG TAB) 5 mg HS PO 07/11/24 21:00 08/10/24 20:59 07/14/24 21:02 5 MG Multivitamins Therapeutic (Multivitamin Tablet) 1 tab DAILY PO 07/11/24 09:00 08/10/24 08:59 07/15/24 09:27 1 TAB Nitroglycerin (Nitrostat) 0.4 mg PROTOCOL PRN SL CHEST PAIN 07/10/24 16:00 08/09/24 15:59 Ondansetron HCl (zoFRAN 4MG INJ) 4 mg Q6H PRN IV NAUSEA/VOMITING 07/10/24 16:00 08/09/24 15:59 Oxycodone/ Acetaminophen (perCOCET) 1 tab Q6H PRN PO SEVERE PAIN (7-10) 07/10/24 16:00 07/17/24 15:59 07/14/24 10:06 1 TAB Piperacillin Sod/ Tazobactam Sod (Zosyn 3.375gm+NS 50ml) 3.375 gm Q8H IV 07/11/24 06:00 07/11/24 05:50 DC Piperacillin Sod/ Tazobactam Sod (Zosyn 3.375gm+NS 50ml) 3.375 gm Q8H IV 07/11/24 07:00 07/21/24 06:59 07/15/24 06:25 3.375 GM Potassium Chloride 100 ml @ 100 mls/hr AD PRN IV POTASSIUM PROTOCOL 07/12/24 14:30 08/11/24 14:29 Potassium Chloride (K-Dur 10meq Sr Tab) 10 meq AD PRN PO POTASSIUM PROTOCOL 07/12/24 14:30 08/11/24 14:29 Potassium Chloride (KCl 10% Elixir 20meq/15ml) 10 meq AD PRN PO POTASSIUM PROTOCOL 07/12/24 14:30 08/11/24 14:29 07/12/24 20:46 40 MEQ Sodium Bicarbonate (Sodium Bicarbonate) 650 mg QID PO 07/14/24 17:00 08/13/24 16:59 07/15/24 09:27 650 MG Sodium Chloride 1,000 ml @ 0 mls/hr Q0M IV 07/10/24 11:30 07/12/24 14:13 DC 07/10/24 12:01 1,000 MLS/HR Sodium Chloride 1,000 ml @ 80 mls/hr [id number] IV 07/10/24 16:00 08/09/24 15:59 07/15/24 09:45 80 MLS/HR Sodium Chloride 1,000 ml @ 200 mls/hr Q5H IV 07/11/24 17:30 07/12/24 14:13 DC 07/11/24 20:32 200 MLS/HR Tramadol HCl (UltRAM) 25 mg Q8H5 PO 07/11/24 13:00 07/11/24 10:35 DC Zolpidem Tartrate (AmbIEN) 5 mg HS PRN PO INSOMNIA 07/10/24 16:00 08/09/24 15:59 Diagnostics / Radiology: [COPY/PASTE HERE IF NO REPORTS PLEASE DELETE SECTION] Assessment: [ ] Plan: [ ] AIME [employer]N [employer]IV[employer] July 15, 2024 11:36
[2024-07-15 14:42] LABS: HEMATOCRIT 24.4 % (36-48); RED BLOOD CELL COUNT(AUTO) 2.44 MIL/uL (4.00-5.50); RED CELL DISTRIBUTION WIDTH 14.4 % (11.0-15.5); WHITE BLOOD COUNT (AUTO) 9.2 K/uL (4.8-10.8)
--- NOTE | 2024-07-15 16:26 | PN ---
[facility] PROGRESS NOTE Date of Service: July 15, 2024 Time of Service: 16:[address] Sheth SUBJECTIVE: [07/10 [Patient is 79-year-old female with a past medical history of influenza, pneumonia, diabetes, hypertension, arthritis, osteoporosis, bronchitis, asthma, mild dementia, thrombocytopenia, who was brought to emergency department by EMS s/p fall at [facility]. Patient is complaining of headaches, upper and lower back and bilateral hip pain. Patient stated that she was taking a bath when she slipped and she fell down. Patient has [facility] a [facility] of the [facility] for the past about three weeks due to dementia. No family member available at the bedside at this moment. Sodium 136 potassium 4.1 CO2 26 BUN 12 creatinine 0.7 GFR 88 glucose 154 calcium 8.8 CK 66 WBC 5.3 hemoglobin 12.7 hematocrit 36.2 platelets 110. UA negative for leukocytosis or nitrates. Chest x-ray showed minimal pulmonary infiltrate. CT abdomen/pelvis showed varices, distended gallbladder with gallstones, diverticulosis. Patient will be admitted under hospitalist care for further evaluation/recommendation. We will order HIDA scan to evaluate for gallstones. CT head brain, cervical, thoracic and lumbar spine CT was ordered as well. We will order bilateral hip x-ray. We will hold off of surgeon at this moment. We will wait for HIDA scan results 1st. Patient agrees with the further plan. A.m. labs 07/11 patient was seen by nurse practitioner and physician during rounding in room 406. HIDA scan came back positive for acute cholecystitis. We will consult surgeon Dr. Cordon who is on-call today for possible cholecystectomy. Patient is still complains to abdominal pain. Abdomen is very rigid and painful to touch. CT head brain was negative. CT cervical, thoracic and lumbar was negative as well we are pending bilateral hip x-ray for now. Son was sitting at the bedside next to the patient stating that normally at home patient takes tramadol 25 mg every 8 hours for chronic back pain. We will order above-stated medication. On CT abdomen/pelvis versus were showed with some diverticulosis. Patient follows GI Dr. Lozano we will consult him as well for further recommendations. Patient's potassium today is 3.5 patient will receive 40 mEq of potassium. Magnesium 1.5 patient receive 2 g of magnesium. We will continue to monitor patient in the meantime. A.m. labs 07/12 patient was seen by nurse practitioner physician during rounding in room 406. Patient was evaluated by the GI and that is pending MRCP to rule out concerns for choledocholithiasis. Also surgeon will like to performed cholecystectomy tomorrow 07/13/2024 at this moment is require medical clearance. We will continue to monitor patient in the meantime. A.m. labs Medical clearance Gautam perioperative risk 0.2% DESIRAE risk, risk of myocardial infarction or cardiac arrest, intraoperatively or up to 30 days postop is 0.2% NSQI for procedure laparoscopy surgical, cholecystectomy Serious complication 3.2% Any complication 3.3% Pneumonia 0.2% Cardiac complication 0.4% Venous thromboembolism 0.2% Sepsis 0.5% Surgical site infection 1.3% UTI 0.9% Renal failure 0.3% Readmission 4.4% Return to OR 0.7% 0.1% Discharged to nursing or rehab facility 0.9% Patient is cleared from the medical standpoint for cholecystectomy 07/13/24 patient was seen by nurse practitioner physician during rounding in room 406. MRCP was performed on 07/13/2024 and showed the gallbladder is hydropic and there is cholelithiasis. However the gallbladder wall is not thickened and there is no pericholecystic fluid to indicate acute cholecystitis. As per surgery that will pending medical clearance for cholecystectomy. Medical clearance was given yesterday 07/12/2024. Patient is NPO and pending surgery. Case management was consulted for Gopal once patient will be medically stable. We will continue to monitor patient in the meantime. A.m. labs 07/14/24 patient was seen by nurse practitioner physician during rounding in room 406. Patient is s/p cholecystectomy with Dr. Cordon on 07/13/2024. Nurse practitioner was able to free talk to GI and at this moment they went proceed with any procedures follow-up in1 to 2 weeks. During rounding nurse practitioner realized that the patient is bleeding profusely from the side where the surgery was just performed. She call Luis FRIEND OF THE COURT from Dr. Cordon and he was able to come and see delayed. The bleed was possibly due to accumulation s/p surgery. Bleeding was stopped. We will continue to monitor patient in the meantime. A.m. labs 07/15/24 patient was seen by nurse practitioner and physician during rounding. Patient was cleared by the GI to be discharged home and follow-up outpatient within 1 to 2 weeks. Patient was also cleared by surgeon s/p cholecystectomy. Follow up in 1 to 2 weeks. WBC 9.2. H&H stable. At this moment we are pending [facility] once insurance approved.] REVIEW OF SYSTEMS CONSTITUTIONAL: Denies fevers, chills, or night sweats. No unintentional weight loss reported. NEUROLOGICAL: Denies headache, amaurosis fugax, motor weakness, sensory deficit, vertigo/spinning sensation, gait abnormalities, or tremors. ENT: No hearing loss, otalgia, otorrhea, rhinitis, rhinorrhea, hoarseness, or sore throat. CARDIOVASCULAR: Denies any exertional angina, dyspnea on exertion, orthopnea, paroxysmal nocturnal dyspnea, palpitations, life-threatening arrhythmias, claudication. PULMONARY: Denies any shortness of breath, cough, phlegm/sputum, hemoptysis, pleuritic chest pain. SLEEP: Denies morning headaches, daytime somnolence or napping. Denies difficulty falling asleep, staying asleep, waking from sleep. Denies knowledge of snoring. GASTROINTESTINAL: Denies any type of dysphagia to either liquids or solids. Denies nausea, vomiting, pyrosis, early satiety, diarrhea, constipation, or changes in stool consistency or caliber. Denies coffee-ground emesis, hematemesis, hematochezia, or melanotic stools. Complains of abdominal pain GENITOURINARY: Denies frequency, urgency, nocturia, hematuria or incontinence (Storage/Irritative symptoms.) Low urinary stream, straining to void, urinary intermittency or hesitancy, splitting of the voiding stream, terminal dribbling. ENDOCRINOLOGIC: Denies polyuria, polydipsia, polyphagia or heat/cold intolerances. HEMATOLOGIC: Denies thrombophilia/previous clots, or coagulopathy/bleeding disorders. ONCOLOGIC: Denies personal history of malignancy. DERMATOLOGIC: Denies rashes or pruritus. PSYCHIATRIC: Denies any suicidal or homicidal ideation. Denies hallucinations. PHYSICAL EXAM GENERAL APPEARANCE: The patient is awake, alert, and oriented, in no acute cardiopulmonary distress. NEUROLOGICAL: Cranial nerves II-XII grossly intact. Motor is 5/5 in bilateral upper and lower extremities proximal to distal. No sensory deficits. Patient sent headaches. Patient complains of abdominal pain. Patient complains of bilateral hip pain HEENT: Face is symmetric. Pupils are equal and reactive. Extraocular movements are intact. NECK: Supple. No JVD. No thyromegaly. No submental, submandibular, pre- /postauricular, occipital or supraclavicular lymphadenopathy. CHEST: Normal chest expansion. No Telemetry. LUNGS: Absence of any rales, rhonchi or any wheezing. CARDIOVASCULAR: Regular. S1 and S2 normal. No appreciable rubs, murmurs or gallops. ABDOMEN: Soft, nontender, and nondistended. There is no rebound, voluntary guarding, or rigidity. : Deferred. No Chavez. EXTREMITIES: Non-edematous and not cyanotic. No clubbing. Good capillary refill. SKIN: No skin breakdown. Vital Signs (last 8hr) Date Time Temp Pulse Resp B/P (MAP) Pulse Ox O2 Delivery O2 Flow Rate FiO2 07/15/24 12:00 98.8 108 19 154/63 96 Room Air 21 LABS: Laboratory: Test 07/15/24 15:24 07/15/24 14:30 07/15/24 03:53 07/14/24 15:15 Range/Units Whole Blood Glucose 185 H 70-110 MG/DL White Blood Count 9.2 4.8-10.8 K/uL Red Blood Count 2.44 L 4.00-5.50 MIL/uL Hemoglobin 8.3 L 12.0-16.0 g/dL Hematocrit 24.4 L 36-48 % Mean Corpuscular Volume 100.0 H 79-99 fL Mean Corpuscular Hemoglobin 34.0 H 27.0-33.0 pg Mean Corpuscular Hemoglobin Concent 34.0 32.0-36.0 g/dL Red Cell Distribution Width 14.4 11.0-15.5 % Platelet Count 125 L 130-400 K/uL Mean Platelet Volume 10.7 H 7.5-10.5 fL Nucleated Red Blood Cells 0.0 0.0-0.19 % Immature Granulocyte % (Auto) 0.4 0-1 % Neutrophils (%) (Auto) 63.3 40.0-77.0 % Lymphocytes (%) (Auto) 19.3 L 21.0-51.0 % Monocytes (%) (Auto) 15.5 H 3.0-13.0 % Eosinophils (%) (Auto) 1.2 0.0-8.0 % Basophils (%) (Auto) 0.3 0.0-5.0 % Neutrophils # (Auto) 7.2 1.8-7.7 K/uL Lymphocytes # (Auto) 2.2 1.0-4.8 K/uL Monocytes # (Auto) 1.8 H 0.1-1.0 K/uL Eosinophils # (Auto) 0.14 0.00-0.70 K/uL Basophils # (Auto) 0.03 0.00-0.20 K/uL Absolute Immature Granulocyte (auto 0.04 0-1 K/uL Sodium Level 141 136-145 mmol/L Potassium Level 3.7 3.5-5.1 mmol/L Chloride Level 110 101-111 mmol/L Carbon Dioxide Level 23 21-32 mmol/L Blood Urea Nitrogen 27 H 7-18 mg/dL Creatinine 1.3 H 0.5-1.0 mg/dL Glomerular Filtration Rate Calc 42 >90 mL/min Random Glucose 183 H 70-105 mg/dL Total Calcium 7.7 L 8.5-10.1 mg/dL Magnesium Level 2.40 1.80-2.40 mg/dL Total Bilirubin 1.0 # 0.2-1.0 mg/dL Aspartate Amino Transf (AST/SGOT) 127 H 10-37 U/L Alanine Aminotransferase (ALT/SGPT) 62 12-78 U/L Alkaline Phosphatase 97 50-136 U/L B-Type Natriuretic Peptide 75 0-100 pg/mL Total Protein 6.6 6.0-8.3 g/dL Albumin 2.3 L 3.5-5.0 g/dL Blood Gas Specimen Type Venous Arterial Blood Oxygen Saturation 81.8 L 94.0-98.0 % Venous Blood pH 7.277 L 7.320-7.430 Venous Blood pCO2 at Patient Temp 35 L 38-54 Venous Blood pO2 at Patient Temp 51.2 H 23.0-48.0 mmHg Venous Blood HCO3 16.1 L 22.0-29.0 Venous Blood Base Excess -9.8 L -2.0-3.0 Venous Blood Total Hemoglobin 10.2 L 12.0-16.0 Sodium (Blood Gas) 134 L 136-145 MMOL/L Bedside Potassium (Blood Gas) 4.6 H 3.4-4.5 MMOL/L Bedside Chloride (Blood Gas) 113 H 98-107 MMOL/L Bedside Glucose (Blood Gas) 224 H 65-95 MG/DL Bedside Ionized Calcium (Blood Gas) 1.06 L 1.15-1.33 MMOL/L Bedside Lactic Acid (Blood Gas) 3.94 *H 0.36-0.75 MMOL/L Blood Gas Temperature 37.0 35.5-37.0 CELSIUS Blood Gas Vent Mode N ROOM AIR FiO2 21.0 % Blood Gas Specimen Comment LAB DRAWN Test 07/14/24 15:00 Range/Units White Cell Morphology Comment See comments Current Medications Medications (Trade) Dose Ordered Sig/Daily Route PRN Reason Start Time Stop Time Status Last Admin Dose Admin Acetaminophen (TYLenol 325MG TAB) 650 mg Q4H PRN PO MILD PAIN (1-3) 07/10/24 16:00 08/09/24 15:59 Acetaminophen (TYLenol 325MG TAB) 650 mg Q6H PRN PO MILD PAIN (1-3) 07/10/24 16:00 07/12/24 14:13 DC Acetaminophen (TYLenol 325MG TAB) 650 mg Q6H PRN PO TEMPERATURE GREATER THAN 101.5 07/10/24 16:00 08/09/24 15:59 Al Hydroxide/Mg Hydroxide (MAALox PLUS 30ML) 30 ml Q6H PRN PO INDIGESTION 07/10/24 16:00 08/09/24 15:59 Amlodipine Besylate (NorvASC 5MG TAB) 5 mg DAILY PO 07/11/24 09:00 08/10/24 08:59 07/15/24 09:27 5 MG Atorvastatin Calcium (LIPItor 20MG) 20 mg HS PO 07/11/24 21:00 08/10/24 20:59 07/14/24 21:01 20 MG Dextrose (D50w) 50 ml AD PRN IV HYPOGLYCEMIA PROTOCOL 07/10/24 16:00 07/12/24 14:09 DC Dextrose (D50w) 50 ml AD PRN IV HYPOGLYCEMIA PROTOCOL 07/12/24 14:30 07/13/24 13:26 DC Dextrose (D50w) 50 ml AD PRN IV HYPOGLYCEMIA PROTOCOL 07/13/24 13:30 6/4/25 13:29 Diphenhydramine HCl (BENAdryl INJ) 25 mg Q6H PRN IV SEVERE ITCHING/RASH 07/10/24 16:00 08/09/24 15:59 Famotidine (Pepcid 20mg Vial) 20 mg BID IV 07/10/24 21:00 07/14/24 07:10 DC 07/13/24 21:29 20 MG Famotidine (Pepcid 20mg Vial) 20 mg BID PRN IV NAUSEA/VOMITING 07/10/24 16:00 07/11/24 07:39 DC Famotidine (Pepcid 20mg Vial) 20 mg Q24H IV 07/14/24 21:00 08/09/24 20:59 07/14/24 21:01 20 MG Folic Acid (FOLic ACID 1 MG TABLET) 1 mg DAILY PO 07/11/24 09:00 08/10/24 08:59 07/15/24 09:27 1 MG Glucagon (Glucagon 1mg Kit) 1 mg AD PRN IM HYPOGLYCEMIA PROTOCOL 07/10/24 16:00 07/12/24 14:09 DC Glucagon (Glucagon 1mg Kit) 1 mg AD PRN IM HYPOGLYCEMIA PROTOCOL 07/12/24 14:30 07/13/24 13:26 DC Glucagon (Glucagon 1mg Kit) 1 mg AD PRN IM HYPOGLYCEMIA PROTOCOL 07/13/24 13:30 08/12/24 13:29 Guaifenesin/ Dextromethorphan (RobiTUSSin DM 200/20MG 10ML) 10 ml Q4H PRN PO COUGH 07/10/24 16:00 08/09/24 15:59 Hydralazine HCl (APRESOLine 20MG INJ) 10 mg Q6H PRN IV For:SBP above 160;DBP above 90 07/10/24 16:00 08/09/24 15:59 07/11/24 04:26 10 MG Hydrochlorothiazide (hydroCHLOROthiazide 25MG) 12.5 mg DAILY PO 07/11/24 09:00 08/10/24 08:59 07/15/24 09:27 12.5 MG Insulin Human Regular (humuLIN R 100 UNIT/ML 3ML) INSULIN SLIDING SCAL... ACHS SQ 07/10/24 16:30 07/12/24 14:09 DC 07/11/24 20:36 2 UNIT Insulin Human Regular (humuLIN R 100 UNIT/ML 3ML) INSULIN SLIDING SCAL... ACHS SQ 07/12/24 16:30 07/13/24 13:26 DC Insulin Human Regular (humuLIN R 100 UNIT/ML 3ML) INSULIN SLIDING SCAL... ACHS SQ 07/13/24 16:30 08/12/24 16:29 07/15/24 06:35 2 UNIT Ketorolac Tromethamine (toRADol) 15 mg Q8H PRN IV MODERATE PAIN (4-6) 07/10/24 16:00 07/15/24 15:59 DC 07/15/24 06:29 15 MG Lactulose (Constulose 20gm/ 30ml Udcup) 20 gm BID PRN PO CONSTIPATION 07/10/24 16:00 08/09/24 15:59 07/15/24 09:27 20 GM Loratadine (LORATAdine 10 mg) 10 mg DAILY PO 07/11/24 09:00 08/10/24 08:59 07/15/24 09:27 10 MG Magnesium Sulfate 50 ml @ 0 mls/hr PROTOCOL IV 07/11/24 07:30 07/12/24 14:13 DC 07/12/24 06:45 25 MLS/HR Magnesium Sulfate 50 ml @ 0 mls/hr PROTOCOL PRN IV other 07/10/24 16:00 08/09/24 15:59 Magnesium Sulfate 50 ml @ 0 mls/hr PROTOCOL PRN IV other 07/12/24 14:30 07/12/24 14:14 DC Megestrol Acetate (Megace) 400 mg DAILY PO 07/11/24 09:00 08/10/24 08:59 07/15/24 09:27 400 MG Memantine (NAmenDA 5 MG TAB) 5 mg HS PO 07/11/24 21:00 08/10/24 20:59 07/14/24 21:02 5 MG Multivitamins Therapeutic (Multivitamin Tablet) 1 tab DAILY PO 07/11/24 09:00 08/10/24 08:59 07/15/24 09:27 1 TAB Nitroglycerin (Nitrostat) 0.4 mg PROTOCOL PRN SL CHEST PAIN 07/10/24 16:00 08/09/24 15:59 Ondansetron HCl (zoFRAN 4MG INJ) 4 mg Q6H PRN IV NAUSEA/VOMITING 07/10/24 16:00 08/09/24 15:59 Oxycodone/ Acetaminophen (perCOCET) 1 tab Q6H PRN PO SEVERE PAIN (7-10) 07/10/24 16:00 07/17/24 15:59 07/14/24 10:06 1 TAB Piperacillin Sod/ Tazobactam Sod (Zosyn 3.375gm+NS 50ml) 3.375 gm Q8H IV 07/11/24 06:00 07/11/24 05:50 DC Piperacillin Sod/ Tazobactam Sod (Zosyn 3.375gm+NS 50ml) 3.375 gm Q8H IV 07/11/24 07:00 07/21/24 06:59 07/15/24 14:32 3.375 GM Potassium Chloride 100 ml @ 100 mls/hr AD PRN IV POTASSIUM PROTOCOL 07/12/24 14:30 08/11/24 14:29 Potassium Chloride (K-Dur 10meq Sr Tab) 10 meq AD PRN PO POTASSIUM PROTOCOL 07/12/24 14:30 08/11/24 14:29 Potassium Chloride (KCl 10% Elixir 20meq/15ml) 10 meq AD PRN PO POTASSIUM PROTOCOL 07/12/24 14:30 08/11/24 14:29 07/12/24 20:46 40 MEQ Sodium Bicarbonate (Sodium Bicarbonate) 650 mg QID PO 07/14/24 17:00 08/13/24 16:59 07/15/24 12:32 650 MG Sodium Chloride 1,000 ml @ 0 mls/hr Q0M IV 07/10/24 11:30 07/12/24 14:13 DC 07/10/24 12:01 1,000 MLS/HR Sodium Chloride 1,000 ml @ 80 mls/hr [id number] IV 07/10/24 16:00 08/09/24 15:59 07/15/24 09:45 80 MLS/HR Sodium Chloride 1,000 ml @ 200 mls/hr Q5H IV 07/11/24 17:30 07/12/24 14:13 DC 07/11/24 20:32 200 MLS/HR Tramadol HCl (UltRAM) 25 mg Q8H5 PO 07/11/24 13:00 07/11/24 10:35 DC Zolpidem Tartrate (AmbIEN) 5 mg HS PRN PO INSOMNIA 07/10/24 16:00 08/09/24 15:59 DIAGNOSTICS / RADIOLOGY: [ ] ASSESSMENT: [ S/p fall POA Acute pain to upper, lower back, abdomen, bilateral hips POA Acute cholecystitis per HIDA scan POA S/p cholecystectomy 07/13/2024 Possible choledocholithiasis POA Cholelithiasis as per MRCP 07/13/2024 Uncontrolled hypertension POA Multifactorial anemia POA Thrombocytopenia POA Uncontrolled diabetes mellitus type 2 with hypoglycemia POA Varices per CT abdomen/pelvis POA Distended gallbladder with gallstones per CT abdomen/pelvis POA Diverticulosis per CT abdomen/pelvis POA Debilitation POA Arthritis POA Osteoporosis POA Became this POA Asthma POA Dementia POA ] PLAN: [ Admit to: Medical-surgical floor Consults: Surgeon consulted for cholecystitis, GI for hepatic steatosis Antibiotics: None at this moment Tests: None NEURO: CT head brain negative Minimize central acting medications as possible. Fall Precautions. Well lighted room through the day and minimize interruptions through the night to prevent acute delirium. PULMONARY: Chest x-ray minimal pulmonary infiltrate Supplemental 02 as needed BiPAP as necessary, for respiratory distress Titrate Fio2 to keep Spo2 > or = 90% DuoNebs and CPT as needed IS hourly while awake for pulmonary hygiene Out of bed to chair as tolerated VAP Bundle Maintain aspiration precautions at all times CARDIOVASCULAR: Follow hemodynamics. Vital signs per facility protocol GI & NUTRITION: Patient cleared by GI to be discharged home follow up outpatient in 1 to 2 weeks Patient cleared by surgeon s/p cholecystectomy follow up outpatient within 1 to 2 weeks. cholecystectomy 07/13/[address] Cordon MRCP showed the gallbladder is hydropic and there is cholelithiasis. However the gallbladder wall is not thickened and there is no pericholecystic fluid to indicate acute cholecystitis. HIDA scan showed acute cholecystitis CT abdomen/pelvis showed varices, distended gallbladder with gallstones, diverticulosis Continue nutritional support Aspirations precautions Prokinetic agents and laxatives as needed KIDNEYS & ELECTROLYTES: Patient receive 2 g of magnesium Patient received 40 mEq of potassium Strict monitoring of intake and output Daily weights Avoid nephrotoxic agents Monitor electrolytes and replace as needed Goal urine output of 30mL/hr or 0.5mL/kg/hr Medications to be dosed according to renal function. Avoid contrast if possible ENDOCRINE: Maintain blood glucose between 100-180 at all times. Insulin sliding scale for blood glucose management Hypoglycemia and hyperglycemia protocol in place INFECTIOUS DISEASE: Trend temperature, WBC and procalcitonin level Follow cultures, deescalate antibiotics as soon as possible. Panculture if new onset fever HEMATOLOGY & COAGULATION: Monitor H&H. Keep Hgb > 7 Transfuse 1 unit of PRBC for Hgb < 7 Transfuse 1 pack of platelets of platelets < 20, 000 Watch for any signs and symptoms of bleeding SKIN: Pressure ulcer prevention per facility protocol Specialty mattress as needed Bilateral hip x-ray pending Lumbar CT spine showed compression fracture throughout the thoracic spine was at T11 and T12. Age indeterminate Thoracic CT spine showed compression fracture throughout the thoracic spine was at T11 and T12. Age indeterminate Cervical CT spine no fracture seen DJD Treatment plan discussed with patient and family at the bedside Medications to be reconciled once obtained by patient and/or family and available to be reconciled in computer p.r.n. medication for pain nausea and vomiting Questions were answered We will continue to monitor the patient closely Disability Liaison Officer for disposition Rehab: PT/OT GI: PPI DVT: SCD's Code Status: Full Resuscitation Disposition: [facility] Prognosis: Guarded] ATTESTATION BY PHYSICIAN I have seen and examined the patient. I reviewed the documentation, medical decision making, and treatment plan as noted by the mid-level provider above. I agree with the findings and plan of care. GREG SHETH MD, [employer] July 15, 2024 16:26
[2024-07-15 17:32] LABS: ABG OXYGEN SATURATION 95.8 % (94.0-98.0); ABG PCO2 32 mmHg (32-45); ABG PH 7.411 (7.350-7.450); CARBON MONOXIDE 0.1 % (0.5-1.5); HHb 4.2; PO2, ARTERIAL BG 83.6 mmHg (83.0-108.0); VENT MODE, BG NC (ROOM AIR)
--- NOTE | 2024-07-15 19:39 | NUR ---
elevated d-dimer orders recv'd for bilateral venous doppler le, vq scan. us notified of test they are aware. no answer with nuclear med.
[2024-07-15 21:26] LABS: HEMATOCRIT 23.1 % (36-48); MEAN CORPUSCULAR HEMOGLOBIN 33.8 pg (27.0-33.0); MEAN CORPUSCULAR HGB CONC 33.3 g/dL (32.0-36.0); MEAN CORPUSCULAR VOLUME 101.3 fL (79-99); RED BLOOD CELL COUNT(AUTO) 2.28 MIL/uL (4.00-5.50); RED CELL DISTRIBUTION WIDTH 14.6 % (11.0-15.5); WHITE BLOOD COUNT (AUTO) 8.5 K/uL (4.8-10.8)
[2024-07-16] VITALS (7 sets, daily range): BP systolic 130–152; BP diastolic 56–68; PULSE 91–114; RESP 20–26; TEMP 98.2–99.6; O2SAT 96
[2024-07-16 04:54] LABS: BASOPHILS # (AUTO) 0.02 K/uL (0.00-0.20); BASOPHILS % (AUTO) 0.3 % (0.0-5.0); EOSINOPHILS # (AUTO) 0.28 K/uL (0.00-0.70); EOSINOPHILS % (AUTO) 3.9 % (0.0-8.0); HEMATOCRIT 22.5 % (36-48); IMMATURE GRANULOCYTE ABSOLUTE 0.04 K/uL (0-1); LYMPHOCYTES # (AUTO) 1.2 K/uL (1.0-4.8); LYMPHOCYTES % (AUTO) 16.4 % (21.0-51.0); MEAN CORPUSCULAR HEMOGLOBIN 34.2 pg (27.0-33.0); MEAN CORPUSCULAR HGB CONC 34.2 g/dL (32.0-36.0); MONOCYTES # (AUTO) 1.1 K/uL (0.1-1.0); MONOCYTES % (AUTO) 15.2 % (3.0-13.0); NEUTROPHILS # (AUTO) 4.5 K/uL (1.8-7.7); NEUTROPHILS % (AUTO) 63.6 % (40.0-77.0); PLATELET COUNT (AUTO) 132 K/uL (130-400); RED BLOOD CELL COUNT(AUTO) 2.25 MIL/uL (4.00-5.50); RED CELL DISTRIBUTION WIDTH 14.4 % (11.0-15.5); WHITE BLOOD COUNT (AUTO) 7.1 K/uL (4.8-10.8)
[2024-07-16 05:11] LABS: BILIRUBIN,TOTAL 1.1 mg/dL (0.2-1.0); CREATININE 0.8 mg/dL (0.5-1.0); MAGNESIUM 1.9 mg/dL (1.80-2.40); POTASSIUM 3.4 mmol/L (3.5-5.1)
--- NOTE | 2024-07-16 07:27 | PN ---
GASTROENTEROLOGY PROGRESS NOTE Date of Visit: July 16, 2024 Time of Visit: 07:27 Events / Notes: [ ] Review of Systems: CONSTITUTIONAL: No malaise or change in sensation of wellbeing. ENMT: No rhinorrhea, otorrhea, sinus pain, ear ache. CARDIOVASCULAR: No angina, palpitations, orthopnea or paroxysmal dyspnea. RESPIRATORY: No SOB. GASTROINTESTINAL: No abdominal pain, nausea, vomiting, diarrhea, hematemesis, melena or change in the patient's habitual bowel movements consistency/number. GENITOURINARY: No dysuria, hematuria or change in bladder continence. MUSCULOSKELETAL: No new muscle pain or decrease in muscular strength. No new joint swelling, redness or tenderness. SKIN: No new rash. Physical Exam: GEN: Awake, alert, oriented in person, time and place, and in no acute distress. HEENT: No sinus tenderness. Tympanic membranes were not examined. No rhinorrhea. Oral pharyngeal mucosa is pink, moist and within normal limits. Neck is supple with no cervical lymphadenopathy, thyromegaly or JVD. CHEST: Inspection, palpation and percussion of the chest were unremarkable. Lung auscultation revealed normal breath sounds bilaterally. CARDIAC: PMI is within normal limits. Heart sounds are regular. Normal S1, S2. No gallop or murmur. ABD: Soft, non-tender and not distended. No peritoneal signs on palpation. No organomegaly. Normal bowel sounds. EXT: No cyanosis or clubbing. No edema. SKIN: Intact. No rashes. JOINTS: No evidence of synovitis or acute arthritis. NEURO: Alert and oriented to name, place and person. Cranial nerve examination is unremarkable. No focal motor deficits. Normal speech. Gait is normal. Strength is normal. Vital Signs (last 8hr) Date Time Temp Pulse Resp B/P (MAP) Pulse Ox O2 Delivery O2 Flow Rate FiO2 07/16/24 04:00 99.3 113 20 135/64 97 Nasal Cannula 2.0 07/16/24 00:00 98.8 114 22 137/63 98 Nasal Cannula 2.0 Laboratory: [ ] Laboratory: Test 07/16/24 05:28 07/16/24 04:25 07/15/24 17:50 07/15/24 17:31 Range/Units Whole Blood Glucose 137 H 70-110 MG/DL White Blood Count 7.1 4.8-10.8 K/uL Red Blood Count 2.25 L 4.00-5.50 MIL/uL Hemoglobin 7.7 L 12.0-16.0 g/dL Hematocrit 22.5 L 36-48 % Mean Corpuscular Volume 100.0 H 79-99 fL Mean Corpuscular Hemoglobin 34.2 H 27.0-33.0 pg Mean Corpuscular Hemoglobin Concent 34.2 32.0-36.0 g/dL Red Cell Distribution Width 14.4 11.0-15.5 % Platelet Count 132 130-400 K/uL Mean Platelet Volume 11.7 H 7.5-10.5 fL Immature Granulocyte % (Auto) 0.6 0-1 % Neutrophils (%) (Auto) 63.6 40.0-77.0 % Lymphocytes (%) (Auto) 16.4 L 21.0-51.0 % Monocytes (%) (Auto) 15.2 H 3.0-13.0 % Eosinophils (%) (Auto) 3.9 0.0-8.0 % Basophils (%) (Auto) 0.3 0.0-5.0 % Neutrophils # (Auto) 4.5 1.8-7.7 K/uL Lymphocytes # (Auto) 1.2 1.0-4.8 K/uL Monocytes # (Auto) 1.1 H 0.1-1.0 K/uL Eosinophils # (Auto) 0.28 0.00-0.70 K/uL Basophils # (Auto) 0.02 0.00-0.20 K/uL Absolute Immature Granulocyte (auto 0.04 0-1 K/uL Nucleated Red Blood Cells 0.0 0.0-0.19 % Sodium Level 140 136-145 mmol/L Potassium Level 3.4 L 3.5-5.1 mmol/L Chloride Level 110 101-111 mmol/L Carbon Dioxide Level 24 21-32 mmol/L Blood Urea Nitrogen 20 H 7-18 mg/dL Creatinine 0.8 0.5-1.0 mg/dL Glomerular Filtration Rate Calc 75 >90 mL/min Random Glucose 146 H 70-105 mg/dL Total Calcium 7.5 L 8.5-10.1 mg/dL Magnesium Level 1.90 1.80-2.40 mg/dL Total Bilirubin 1.1 H 0.2-1.0 mg/dL Aspartate Amino Transf (AST/SGOT) 83 H 10-37 U/L Alanine Aminotransferase (ALT/SGPT) 48 12-78 U/L Alkaline Phosphatase 98 50-136 U/L B-Type Natriuretic Peptide 364 H 0-100 pg/mL Total Protein 6.0 6.0-8.3 g/dL Albumin 2.0 L 3.5-5.0 g/dL D-Dimer Quantitative (PE/DVT) > 62060 *H 0-500 ng/mL Blood Gas Specimen Type Arterial Arterial Blood pH 7.411 7.350-7.450 Arterial Blood Partial Pressure CO2 32 32-45 mmHg Arterial Blood Partial Pressure O2 83.6 83.0-108.0 mmHg Arterial Blood HCO3 20.0 L 21.0-28.0 mmol/L Arterial Blood Oxygen Saturation 95.8 94.0-98.0 % Arterial Blood Base Excess -4.0 L -2.0-3.0 mmol/L Hemoglobin (Blood Gas) 9.0 L 12.0-16.0 g/dL Sodium (Blood Gas) 137 136-145 MMOL/L Bedside Potassium (Blood Gas) 3.7 3.4-4.5 MMOL/L Bedside Chloride (Blood Gas) 110 H 98-107 MMOL/L Bedside Glucose (Blood Gas) 234 H 65-95 MG/DL Bedside Ionized Calcium (Blood Gas) 1.10 L 1.15-1.33 MMOL/L Bedside Lactic Acid (Blood Gas) 3.41 *H 0.36-0.75 MMOL/L Blood Gas Temperature 37.0 35.5-37.0 CELSIUS Blood Gas Flow-by 2.00 0.00-15.00 L/min Blood Gas Vent Mode NC ROOM AIR FiO2 28.0 % Blood Gas Specimen Comment RR VICENTE Test 07/14/24 15:15 07/14/24 15:00 Range/Units Venous Blood pH 7.277 L 7.320-7.430 Venous Blood pCO2 at Patient Temp 35 L 38-54 Venous Blood pO2 at Patient Temp 51.2 H 23.0-48.0 mmHg Venous Blood HCO3 16.1 L 22.0-29.0 Venous Blood Base Excess -9.8 L -2.0-3.0 Venous Blood Total Hemoglobin 10.2 L 12.0-16.0 White Cell Morphology Comment See comments Current Medications Medications (Trade) Dose Ordered Sig/Daily Route PRN Reason Start Time Stop Time Status Last Admin Dose Admin Acetaminophen (TYLenol 325MG TAB) 650 mg Q4H PRN PO MILD PAIN (1-3) 07/10/24 16:00 08/09/24 15:59 Acetaminophen (TYLenol 325MG TAB) 650 mg Q6H PRN PO MILD PAIN (1-3) 07/10/24 16:00 07/12/24 14:13 DC Acetaminophen (TYLenol 325MG TAB) 650 mg Q6H PRN PO TEMPERATURE GREATER THAN 101.5 07/10/24 16:00 08/09/24 15:59 Al Hydroxide/Mg Hydroxide (MAALox PLUS 30ML) 30 ml Q6H PRN PO INDIGESTION 07/10/24 16:00 08/09/24 15:59 Amlodipine Besylate (NorvASC 5MG TAB) 5 mg DAILY PO 07/11/24 09:00 08/10/24 08:59 07/15/24 09:27 5 MG Atorvastatin Calcium (LIPItor 20MG) 20 mg HS PO 07/11/24 21:00 08/10/24 20:59 07/15/24 20:53 20 MG Dextrose (D50w) 50 ml AD PRN IV HYPOGLYCEMIA PROTOCOL 07/10/24 16:00 07/12/24 14:09 DC Dextrose (D50w) 50 ml AD PRN IV HYPOGLYCEMIA PROTOCOL 07/12/24 14:30 07/13/24 13:26 DC Dextrose (D50w) 50 ml AD PRN IV HYPOGLYCEMIA PROTOCOL 07/13/24 13:30 08/12/24 13:29 Diphenhydramine HCl (BENAdryl INJ) 25 mg Q6H PRN IV SEVERE ITCHING/RASH 07/10/24 16:00 08/09/24 15:59 Famotidine (Pepcid 20mg Vial) 20 mg BID IV 07/10/24 21:00 07/14/24 07:10 DC 07/13/24 21:29 20 MG Famotidine (Pepcid 20mg Vial) 20 mg BID PRN IV NAUSEA/VOMITING 07/10/24 16:00 07/11/24 07:39 DC Famotidine (Pepcid 20mg Vial) 20 mg Q24H IV 07/14/24 21:00 08/09/24 20:59 07/15/24 20:53 20 MG Folic Acid (FOLic ACID 1 MG TABLET) 1 mg DAILY PO 07/11/24 09:00 08/10/24 08:59 07/15/24 09:27 1 MG Glucagon (Glucagon 1mg Kit) 1 mg AD PRN IM HYPOGLYCEMIA PROTOCOL 07/10/24 16:00 07/12/24 14:09 DC Glucagon (Glucagon 1mg Kit) 1 mg AD PRN IM HYPOGLYCEMIA PROTOCOL 07/12/24 14:30 07/13/24 13:26 DC Glucagon (Glucagon 1mg Kit) 1 mg AD PRN IM HYPOGLYCEMIA PROTOCOL 07/13/24 13:30 08/12/24 13:29 Guaifenesin/ Dextromethorphan (RobiTUSSin DM 200/20MG 10ML) 10 ml Q4H PRN PO COUGH 07/10/24 16:00 08/09/24 15:59 Hydralazine HCl (APRESOLine 20MG INJ) 10 mg Q6H PRN IV For:SBP above 160;DBP above 90 07/10/24 16:00 08/09/24 15:59 07/11/24 04:26 10 MG Hydrochlorothiazide (hydroCHLOROthiazide 25MG) 12.5 mg DAILY PO 07/11/24 09:00 08/10/24 08:59 07/15/24 09:27 12.5 MG Insulin Human Regular (humuLIN R 100 UNIT/ML 3ML) INSULIN SLIDING SCAL... ACHS SQ 07/10/24 16:30 07/12/24 14:09 DC 07/11/24 20:36 2 UNIT Insulin Human Regular (humuLIN R 100 UNIT/ML 3ML) INSULIN SLIDING SCAL... ACHS SQ 07/12/24 16:30 07/13/24 13:26 DC Insulin Human Regular (humuLIN R 100 UNIT/ML 3ML) INSULIN SLIDING SCAL... ACHS SQ 07/13/24 16:30 08/12/24 16:29 07/15/24 20:56 2 UNIT Ketorolac Tromethamine (toRADol) 15 mg Q8H PRN IV MODERATE PAIN (4-6) 07/10/24 16:00 07/15/24 15:59 DC 07/15/24 06:29 15 MG Lactulose (Constulose 20gm/ 30ml Udcup) 20 gm BID PRN PO CONSTIPATION 07/10/24 16:00 08/09/24 15:59 07/15/24 09:27 20 GM Loratadine (LORATAdine 10 mg) 10 mg DAILY PO 07/11/24 09:00 08/10/24 08:59 07/15/24 09:27 10 MG Magnesium Sulfate 50 ml @ 0 mls/hr PROTOCOL IV 07/11/24 07:30 07/12/24 14:13 DC 07/12/24 06:45 25 MLS/HR Magnesium Sulfate 50 ml @ 0 mls/hr PROTOCOL PRN IV other 07/10/24 16:00 08/09/24 15:59 Magnesium Sulfate 50 ml @ 0 mls/hr PROTOCOL PRN IV other 07/12/24 14:30 07/12/24 14:14 DC Megestrol Acetate (Megace) 400 mg DAILY PO 07/11/24 09:00 08/10/24 08:59 07/15/24 09:27 400 MG Memantine (NAmenDA 5 MG TAB) 5 mg HS PO 07/11/24 21:00 08/10/24 20:59 07/15/24 20:53 5 MG Multivitamins Therapeutic (Multivitamin Tablet) 1 tab DAILY PO 07/11/24 09:00 08/10/24 08:59 07/15/24 09:27 1 TAB Nitroglycerin (Nitrostat) 0.4 mg PROTOCOL PRN SL CHEST PAIN 07/10/24 16:00 08/09/24 15:59 Ondansetron HCl (zoFRAN 4MG INJ) 4 mg Q6H PRN IV NAUSEA/VOMITING 07/10/24 16:00 08/09/24 15:59 Oxycodone/ Acetaminophen (perCOCET) 1 tab Q6H PRN PO SEVERE PAIN (7-10) 07/10/24 16:00 07/15/24 18:59 DC 07/14/24 10:06 1 TAB Piperacillin Sod/ Tazobactam Sod (Zosyn 3.375gm+NS 50ml) 3.375 gm Q8H IV 07/11/24 06:00 07/11/24 05:50 DC Piperacillin Sod/ Tazobactam Sod (Zosyn 3.375gm+NS 50ml) 3.375 gm Q8H IV 07/11/24 07:00 07/21/24 06:59 07/16/24 06:07 3.375 GM Potassium Chloride 100 ml @ 100 mls/hr AD PRN IV POTASSIUM PROTOCOL 07/12/24 14:30 08/11/24 14:29 Potassium Chloride (K-Dur 10meq Sr Tab) 10 meq AD PRN PO POTASSIUM PROTOCOL 07/12/24 14:30 08/11/24 14:29 Potassium Chloride (KCl 10% Elixir 20meq/15ml) 10 meq AD PRN PO POTASSIUM PROTOCOL 07/12/24 14:30 08/11/24 14:29 07/16/24 06:07 10 MEQ Sodium Bicarbonate (Sodium Bicarbonate) 650 mg QID PO 07/14/24 17:00 08/13/24 16:59 07/15/24 20:53 650 MG Sodium Chloride 1,000 ml @ 0 mls/hr Q0M IV 07/10/24 11:30 07/12/24 14:13 DC 07/10/24 12:01 1,000 MLS/HR Sodium Chloride 1,000 ml @ 80 mls/hr [id number] IV 07/10/24 16:00 08/09/24 15:59 07/15/24 21:02 80 MLS/HR Sodium Chloride 1,000 ml @ 200 mls/hr Q5H IV 07/11/24 17:30 07/12/24 14:13 DC 07/11/24 20:32 200 MLS/HR Tramadol HCl (UltRAM) 25 mg Q8H5 PO 07/11/24 13:00 07/11/24 10:35 DC Zolpidem Tartrate (AmbIEN) 5 mg HS PRN PO INSOMNIA 07/10/24 16:00 08/09/24 15:59 Diagnostics / Radiology: [COPY/PASTE HERE IF NO REPORTS PLEASE DELETE SECTION] Assessment: [ ] Plan: Continue GI prophylaxis Advance diet as tolerated Avoid NSAIDs Antireflux measures Monitor H&H and transfuse as needed Call with questions, concerns or change in clinical status Patient to follow-up at clinic post discharge Thank you for this consult AIME COLÓN July 16, 2024 07:27
[2024-07-16] MEDS: acetaMINOPHEN 325 MG TAB PO PRN (09:11)
--- NOTE | 2024-07-16 09:12 | HMCIMG ---
Exam Type: CHEST 1VW Clinical Information: COMPARE WITH VQ SCAN Comparison: None Findings: There is cardiomegaly. There is an area of irregularity involving the inferior left hilum. The possibility of a left hilar mass cannot be excluded. Neoplasm cannot be excluded. The rest of the lung stallings are clear. IMPRESSION: Question of a left inferior hilar neoplastic lesion. Consider CT chest without contrast.
--- NOTE | 2024-07-16 09:16 | HMCIMG ---
Pulmonary perfusion study HISTORY: elevated d-dimer. COMPARISON: None TECHNIQUE: Perfusion scan was performed after IV injection of 5.0 mCi of Tc 99m MAA. Please note that the procedure was ordered as a VQ scan. However, the patient could not undergo the ventilation portion of the study. Patient could not hold breath for ventilation images due to cough and therefore ventilation isotope material was not administered. FINDINGS: There is normal perfusion to both lungs. No wedge shaped or pleural-based defect identified IMPRESSION: Normal lung perfusion study
--- NOTE | 2024-07-16 09:45 | HMCIMG ---
Exam Type: US VENOUS DOPPLER BILATERAL Clinical Information: elevated d-dimer Comparison: None Findings: The examination shows normal deep venous system. There is normal compressibility at all levels. There is no intraluminal clot. There is no occlusion. Adequate response is obtained on augmentation. Impression: No evidence of DVT.
[2024-07-16] MEDS: PoTASSium chloRIDE 20MEQ ER 20 MEQ ERTAB PO ONE (11:03)
[2024-07-16] MEDS ORDERED: PoTASSium chloRIDE 10MEQ/100ML 100 ML IV PRN (12:30)
[2024-07-16] MEDS ORDERED: MAGNESIUM 2GM PREMIX 50ML 50 ML IV PRN (12:30)
[2024-07-16] MEDS ORDERED: GLUCAGON 1MG KIT 1 MG ML IM PRN (12:30)
[2024-07-16] MEDS ORDERED: PoTASSium chloRIDE 20MEQ ER 20 MEQ ERTAB PO PRN (12:30)
[2024-07-16] MEDS ORDERED: DEXTROSE 50%-WATER 50 ML DISP.SYRIN IV PRN (12:30)
--- NOTE | 2024-07-16 12:31 | PN ---
[facility] PROGRESS NOTE Date of Service: July 16, 2024 Time of Service: 12:[address] Sheth SUBJECTIVE: [07/10 [Patient is 79-year-old female with a past medical history of influenza, pneumonia, diabetes, hypertension, arthritis, osteoporosis, bronchitis, asthma, mild dementia, thrombocytopenia, who was brought to emergency department by EMS s/p fall at [facility]. Patient is complaining of headaches, upper and lower back and bilateral hip pain. Patient stated that she was taking a bath when she slipped and she fell down. [facility] the [facility] for the past about three weeks due to dementia. No family member available at the bedside at this moment. Sodium 136 potassium 4.1 CO2 26 BUN 12 creatinine 0.7 GFR 88 glucose 154 calcium 8.8 CK 66 WBC 5.3 hemoglobin 12.7 hematocrit 36.2 platelets 110. UA negative for leukocytosis or nitrates. Chest x-ray showed minimal pulmonary infiltrate. CT abdomen/pelvis showed varices, distended gallbladder with gallstones, diverticulosis. Patient will be admitted under hospitalist care for further evaluation/recommendation. We will order HIDA scan to evaluate for gallstones. CT head brain, cervical, thoracic and lumbar spine CT was ordered as well. We will order bilateral hip x-ray. We will hold off of surgeon at this moment. We will wait for HIDA scan results 1st. Patient agrees with the further plan. A.m. labs 07/11 patient was seen by nurse practitioner and physician during rounding in room 406. HIDA scan came back positive for acute cholecystitis. We will consult surgeon Dr. Cordon who is on-call today for possible cholecystectomy. Patient is still complains to abdominal pain. Abdomen is very rigid and painful to touch. CT head brain was negative. CT cervical, thoracic and lumbar was negative as well we are pending bilateral hip x-ray for now. Son was sitting at the bedside next to the patient stating that normally at home patient takes tramadol 25 mg every 8 hours for chronic back pain. We will order above-stated medication. On CT abdomen/pelvis versus were showed with some diverticulosis. Patient follows GI Dr. Lozano we will consult him as well for further recommendations. Patient's potassium today is 3.5 patient will receive 40 mEq of potassium. Magnesium 1.5 patient receive 2 g of magnesium. We will continue to monitor patient in the meantime. A.m. labs 07/12 patient was seen by nurse practitioner physician during rounding in room 406. Patient was evaluated by the GI and that is pending MRCP to rule out concerns for choledocholithiasis. Also surgeon will like to performed cholecystectomy tomorrow 07/13/2024 at this moment is require medical clearance. We will continue to monitor patient in the meantime. A.m. labs Medical clearance Gautam perioperative risk 0.2% DESIRAE risk, risk of myocardial infarction or cardiac arrest, intraoperatively or up to 30 days postop is 0.2% NSQI for procedure laparoscopy surgical, cholecystectomy Serious complication 3.2% Any complication 3.3% Pneumonia 0.2% Cardiac complication 0.4% Venous thromboembolism 0.2% Sepsis 0.5% Surgical site infection 1.3% UTI 0.9% Renal failure 0.3% Readmission 4.4% Return to OR 0.7% 0.1% Discharged to nursing or rehab facility 0.9% Patient is cleared from the medical standpoint for cholecystectomy 07/13/24 patient was seen by nurse practitioner physician during rounding in room 406. MRCP was performed on 07/13/2024 and showed the gallbladder is hydropic and there is cholelithiasis. However the gallbladder wall is not thickened and there is no pericholecystic fluid to indicate acute cholecystitis. As per surgery that will pending medical clearance for cholecystectomy. Medical clearance was given yesterday 07/12/2024. Patient is NPO and pending surgery. Case management was consulted for Gopal once patient will be medically stable. We will continue to monitor patient in the meantime. A.m. labs 07/14/24 patient was seen by nurse practitioner physician during rounding in room 406. Patient is s/p cholecystectomy with Dr. Cordon on 07/13/2024. Nurse practitioner was able to free talk to GI and at this moment they went proceed with any procedures follow-up in1 to 2 weeks. During rounding nurse practitioner realized that the patient is bleeding profusely from the side where the surgery was just performed. She call Luis [employer]MAN[employer] SPECIALIST from Dr. Cordon and he was able to come and see delayed. The bleed was possibly due to accumulation s/p surgery. Bleeding was stopped. We will continue to monitor patient in the meantime. A.m. labs 07/15/24 patient was seen by nurse practitioner and physician during rounding. Patient was cleared by the GI to be discharged home and follow-up outpatient within 1 to 2 weeks. Patient was also cleared by surgeon s/p cholecystectomy. Follow up in 1 to 2 weeks. WBC 9.2. H&H stable. At this moment we are pending [facility] once insurance approved. 07/16 patient was seen by nurse practitioner and physician during rounding. Patient was short of breaths yesterday in the evening venous Doppler was ordered and was negative. D-dimer was elevated. V/Q scan for PE was negative. Chest x-ray was ordered and showed possible neoplastic lesions. We will order CT chest today for further evaluation. Patient is also little bit wheezing on auscultation we will order furosemide 40 mEq IV push one dose only. Patient is on 1 L nasal cannula at this moment sitting 94%. We will continue to monitor patient in the meantime. A.m. labs. Case management is working on disposition to [facility]. Patient to be discharged once medically stable.] REVIEW OF SYSTEMS CONSTITUTIONAL: Denies fevers, chills, or night sweats. No unintentional weight loss reported. NEUROLOGICAL: Denies headache, amaurosis fugax, motor weakness, sensory deficit, vertigo/spinning sensation, gait abnormalities, or tremors. ENT: No hearing loss, otalgia, otorrhea, rhinitis, rhinorrhea, hoarseness, or sore throat. CARDIOVASCULAR: Denies any exertional angina, dyspnea on exertion, orthopnea, paroxysmal nocturnal dyspnea, palpitations, life-threatening arrhythmias, claudication. PULMONARY: Denies any shortness of breath, cough, phlegm/sputum, hemoptysis, pleuritic chest pain. SLEEP: Denies morning headaches, daytime somnolence or napping. Denies difficulty falling asleep, staying asleep, waking from sleep. Denies knowledge of snoring. GASTROINTESTINAL: Denies any type of dysphagia to either liquids or solids. Denies nausea, vomiting, pyrosis, early satiety, diarrhea, constipation, or changes in stool consistency or caliber. Denies coffee-ground emesis, hematemesis, hematochezia, or melanotic stools. Complains of abdominal pain GENITOURINARY: Denies frequency, urgency, nocturia, hematuria or incontinence (Storage/Irritative symptoms.) Low urinary stream, straining to void, urinary intermittency or hesitancy, splitting of the voiding stream, terminal dribbling. ENDOCRINOLOGIC: Denies polyuria, polydipsia, polyphagia or heat/cold intolerances. HEMATOLOGIC: Denies thrombophilia/previous clots, or coagulopathy/bleeding disorders. ONCOLOGIC: Denies personal history of malignancy. DERMATOLOGIC: Denies rashes or pruritus. PSYCHIATRIC: Denies any suicidal or homicidal ideation. Denies hallucinations. PHYSICAL EXAM GENERAL APPEARANCE: The patient is awake, alert, and oriented, in no acute cardiopulmonary distress. NEUROLOGICAL: Cranial nerves II-XII grossly intact. Motor is 5/5 in bilateral upper and lower extremities proximal to distal. No sensory deficits. Patient sent headaches. Patient complains of abdominal pain. Patient complains of bilateral hip pain HEENT: Face is symmetric. Pupils are equal and reactive. Extraocular movements are intact. NECK: Supple. No JVD. No thyromegaly. No submental, submandibular, pre- /postauricular, occipital or supraclavicular lymphadenopathy. CHEST: Normal chest expansion. No Telemetry. LUNGS: Absence of any rales, rhonchi or any wheezing. CARDIOVASCULAR: Regular. S1 and S2 normal. No appreciable rubs, murmurs or gallops. ABDOMEN: Soft, nontender, and nondistended. There is no rebound, voluntary guarding, or rigidity. : Deferred. No Chavez. EXTREMITIES: Non-edematous and not cyanotic. No clubbing. Good capillary refill. SKIN: No skin breakdown. Vital Signs (last 8hr) Date Time Temp Pulse Resp B/P (MAP) Pulse Ox O2 Delivery O2 Flow Rate FiO2 07/16/24 08:00 99.3 98 22 130/56 98 Nasal Cannula 2.0 LABS: Laboratory: Test 07/16/24 12:18 07/16/24 04:25 07/15/24 17:50 07/15/24 17:31 Range/Units Whole Blood Glucose 164 H 70-110 MG/DL White Blood Count 7.1 4.8-10.8 K/uL Red Blood Count 2.25 L 4.00-5.50 MIL/uL Hemoglobin 7.7 L 12.0-16.0 g/dL Hematocrit 22.5 L 36-48 % Mean Corpuscular Volume 100.0 H 79-99 fL Mean Corpuscular Hemoglobin 34.2 H 27.0-33.0 pg Mean Corpuscular Hemoglobin Concent 34.2 32.0-36.0 g/dL Red Cell Distribution Width 14.4 11.0-15.5 % Platelet Count 132 130-400 K/uL Mean Platelet Volume 11.7 H 7.5-10.5 fL Immature Granulocyte % (Auto) 0.6 0-1 % Neutrophils (%) (Auto) 63.6 40.0-77.0 % Lymphocytes (%) (Auto) 16.4 L 21.0-51.0 % Monocytes (%) (Auto) 15.2 H 3.0-13.0 % Eosinophils (%) (Auto) 3.9 0.0-8.0 % Basophils (%) (Auto) 0.3 0.0-5.0 % Neutrophils # (Auto) 4.5 1.8-7.7 K/uL Lymphocytes # (Auto) 1.2 1.0-4.8 K/uL Monocytes # (Auto) 1.1 H 0.1-1.0 K/uL Eosinophils # (Auto) 0.28 0.00-0.70 K/uL Basophils # (Auto) 0.02 0.00-0.20 K/uL Absolute Immature Granulocyte (auto 0.04 0-1 K/uL Nucleated Red Blood Cells 0.0 0.0-0.19 % Sodium Level 140 136-145 mmol/L Potassium Level 3.4 L 3.5-5.1 mmol/L Chloride Level 110 101-111 mmol/L Carbon Dioxide Level 24 21-32 mmol/L Blood Urea Nitrogen 20 H 7-18 mg/dL Creatinine 0.8 0.5-1.0 mg/dL Glomerular Filtration Rate Calc 75 >90 mL/min Random Glucose 146 H 70-105 mg/dL Total Calcium 7.5 L 8.5-10.1 mg/dL Magnesium Level 1.90 1.80-2.40 mg/dL Total Bilirubin 1.1 H 0.2-1.0 mg/dL Aspartate Amino Transf (AST/SGOT) 83 H 10-37 U/L Alanine Aminotransferase (ALT/SGPT) 48 12-78 U/L Alkaline Phosphatase 98 50-136 U/L B-Type Natriuretic Peptide 364 H 0-100 pg/mL Total Protein 6.0 6.0-8.3 g/dL Albumin 2.0 L 3.5-5.0 g/dL D-Dimer Quantitative (PE/DVT) > 51585 *H 0-500 ng/mL Blood Gas Specimen Type Arterial Arterial Blood pH 7.411 7.350-7.450 Arterial Blood Partial Pressure CO2 32 32-45 mmHg Arterial Blood Partial Pressure O2 83.6 83.0-108.0 mmHg Arterial Blood HCO3 20.0 L 21.0-28.0 mmol/L Arterial Blood Oxygen Saturation 95.8 94.0-98.0 % Arterial Blood Base Excess -4.0 L -2.0-3.0 mmol/L Hemoglobin (Blood Gas) 9.0 L 12.0-16.0 g/dL Sodium (Blood Gas) 137 136-145 MMOL/L Bedside Potassium (Blood Gas) 3.7 3.4-4.5 MMOL/L Bedside Chloride (Blood Gas) 110 H 98-107 MMOL/L Bedside Glucose (Blood Gas) 234 H 65-95 MG/DL Bedside Ionized Calcium (Blood Gas) 1.10 L 1.15-1.33 MMOL/L Bedside Lactic Acid (Blood Gas) 3.41 *H 0.36-0.75 MMOL/L Blood Gas Temperature 37.0 35.5-37.0 CELSIUS Blood Gas Flow-by 2.00 0.00-15.00 L/min Blood Gas Vent Mode NC ROOM AIR FiO2 28.0 % Blood Gas Specimen Comment RR VICENTE Test 07/14/24 15:15 07/14/24 15:00 Range/Units Venous Blood pH 7.277 L 7.320-7.430 Venous Blood pCO2 at Patient Temp 35 L 38-54 Venous Blood pO2 at Patient Temp 51.2 H 23.0-48.0 mmHg Venous Blood HCO3 16.1 L 22.0-29.0 Venous Blood Base Excess -9.8 L -2.0-3.0 Venous Blood Total Hemoglobin 10.2 L 12.0-16.0 White Cell Morphology Comment See comments Current Medications Medications (Trade) Dose Ordered Sig/Daily Route PRN Reason Start Time Stop Time Status Last Admin Dose Admin Acetaminophen (TYLenol 325MG TAB) 650 mg Q4H PRN PO MILD PAIN (1-3) 07/10/24 16:00 08/09/24 15:59 07/16/24 09:11 650 MG Acetaminophen (TYLenol 325MG TAB) 650 mg Q6H PRN PO MILD PAIN (1-3) 07/10/24 16:00 07/12/24 14:13 DC Acetaminophen (TYLenol 325MG TAB) 650 mg Q6H PRN PO TEMPERATURE GREATER THAN 101.5 07/10/24 16:00 08/09/24 15:59 Al Hydroxide/Mg Hydroxide (MAALox PLUS 30ML) 30 ml Q6H PRN PO INDIGESTION 07/10/24 16:00 08/09/24 15:59 Amlodipine Besylate (NorvASC 5MG TAB) 5 mg DAILY PO 07/11/24 09:00 08/10/24 08:59 07/16/24 09:12 5 MG Atorvastatin Calcium (LIPItor 20MG) 20 mg HS PO 07/11/24 21:00 08/10/24 20:59 07/15/24 20:53 20 MG Dextrose (D50w) 50 ml AD PRN IV HYPOGLYCEMIA PROTOCOL 07/10/24 16:00 07/12/24 14:09 DC Dextrose (D50w) 50 ml AD PRN IV HYPOGLYCEMIA PROTOCOL 07/12/24 14:30 07/13/24 13:26 DC Dextrose (D50w) 50 ml AD PRN IV HYPOGLYCEMIA PROTOCOL 07/13/24 13:30 07/16/24 12:25 DC Dextrose (D50w) 50 ml AD PRN IV HYPOGLYCEMIA PROTOCOL 07/16/24 12:30 08/15/24 12:29 UNV Diphenhydramine HCl (BENAdryl INJ) 25 mg Q6H PRN IV SEVERE ITCHING/RASH 07/10/24 16:00 08/09/24 15:59 Famotidine (Pepcid 20mg Vial) 20 mg BID IV 07/10/24 21:00 07/14/24 07:10 DC 07/13/24 21:29 20 MG Famotidine (Pepcid 20mg Vial) 20 mg BID PRN IV NAUSEA/VOMITING 07/10/24 16:00 07/11/24 07:39 DC Famotidine (Pepcid 20mg Vial) 20 mg Q24H IV 07/14/24 21:00 08/09/24 20:59 07/15/24 20:53 20 MG Folic Acid (FOLic ACID 1 MG TABLET) 1 mg DAILY PO 07/11/24 09:00 08/10/24 08:59 07/16/24 09:12 1 MG Glucagon (Glucagon 1mg Kit) 1 mg AD PRN IM HYPOGLYCEMIA PROTOCOL 07/10/24 16:00 07/12/24 14:09 DC Glucagon (Glucagon 1mg Kit) 1 mg AD PRN IM HYPOGLYCEMIA PROTOCOL 07/12/24 14:30 07/13/24 13:26 DC Glucagon (Glucagon 1mg Kit) 1 mg AD PRN IM HYPOGLYCEMIA PROTOCOL 07/13/24 13:30 07/16/24 12:25 DC Glucagon (Glucagon 1mg Kit) 1 mg AD PRN IM HYPOGLYCEMIA PROTOCOL 07/16/24 12:30 08/15/24 12:29 UNV Guaifenesin/ Dextromethorphan (RobiTUSSin DM 200/20MG 10ML) 10 ml Q4H PRN PO COUGH 07/10/24 16:00 08/09/24 15:59 Hydralazine HCl (APRESOLine 20MG INJ) 10 mg Q6H PRN IV For:SBP above 160;DBP above 90 07/10/24 16:00 08/09/24 15:59 07/11/24 04:26 10 MG Hydrochlorothiazide (hydroCHLOROthiazide 25MG) 12.5 mg DAILY PO 07/11/24 09:00 08/10/24 08:59 07/16/24 09:11 12.5 MG Insulin Human Regular (humuLIN R 100 UNIT/ML 3ML) INSULIN SLIDING SCAL... ACHS SQ 07/10/24 16:30 07/12/24 14:09 DC 07/11/24 20:36 2 UNIT Insulin Human Regular (humuLIN R 100 UNIT/ML 3ML) INSULIN SLIDING SCAL... ACHS SQ 07/12/24 16:30 07/13/24 13:26 DC Insulin Human Regular (humuLIN R 100 UNIT/ML 3ML) INSULIN SLIDING SCAL... ACHS SQ 07/13/24 16:30 07/16/24 12:25 DC 07/15/24 20:56 2 UNIT Insulin Human Regular (humuLIN R 100 UNIT/ML 3ML) INSULIN SLIDING SCAL... ACHS SQ 07/16/24 16:30 08/15/24 16:29 UNV Ketorolac Tromethamine (toRADol) 15 mg Q8H PRN IV MODERATE PAIN (4-6) 07/10/24 16:00 07/15/24 15:59 DC 07/15/24 06:29 15 MG Lactulose (Constulose 20gm/ 30ml Udcup) 20 gm BID PRN PO CONSTIPATION 07/10/24 16:00 08/09/24 15:59 07/15/24 09:27 20 GM Loratadine (LORATAdine 10 mg) 10 mg DAILY PO 07/11/24 09:00 08/10/24 08:59 07/16/24 09:11 10 MG Magnesium Sulfate 50 ml @ 0 mls/hr PROTOCOL IV 07/11/24 07:30 07/12/24 14:13 DC 07/12/24 06:45 25 MLS/HR Magnesium Sulfate 50 ml @ 0 mls/hr PROTOCOL PRN IV other 07/10/24 16:00 08/09/24 15:59 Magnesium Sulfate 50 ml @ 0 mls/hr PROTOCOL PRN IV other 07/12/24 14:30 07/12/24 14:14 DC Magnesium Sulfate 50 ml @ 0 mls/hr PROTOCOL PRN IV other 07/16/24 12:30 08/15/24 12:29 UNV Megestrol Acetate (Megace) 400 mg DAILY PO 07/11/24 09:00 08/10/24 08:59 07/16/24 09:11 400 MG Memantine (NAmenDA 5 MG TAB) 5 mg HS PO 07/11/24 21:00 08/10/24 20:59 07/15/24 20:53 5 MG Multivitamins Therapeutic (Multivitamin Tablet) 1 tab DAILY PO 07/11/24 09:00 08/10/24 08:59 07/16/24 09:12 1 TAB Nitroglycerin (Nitrostat) 0.4 mg PROTOCOL PRN SL CHEST PAIN 07/10/24 16:00 08/09/24 15:59 Ondansetron HCl (zoFRAN 4MG INJ) 4 mg Q6H PRN IV NAUSEA/VOMITING 07/10/24 16:00 08/09/24 15:59 Oxycodone/ Acetaminophen (perCOCET) 1 tab Q6H PRN PO SEVERE PAIN (7-10) 07/10/24 16:00 07/15/24 18:59 DC 07/14/24 10:06 1 TAB Piperacillin Sod/ Tazobactam Sod (Zosyn 3.375gm+NS 50ml) 3.375 gm Q8H IV 07/11/24 06:00 07/11/24 05:50 DC Piperacillin Sod/ Tazobactam Sod (Zosyn 3.375gm+NS 50ml) 3.375 gm Q8H IV 07/11/24 07:00 07/21/24 06:59 07/16/24 06:07 3.375 GM Potassium Chloride 100 ml @ 100 mls/hr AD PRN IV POTASSIUM PROTOCOL 07/12/24 14:30 07/16/24 12:25 DC Potassium Chloride 100 ml @ 100 mls/hr AD PRN IV POTASSIUM PROTOCOL 07/16/24 12:30 08/15/24 12:29 UNV Potassium Chloride (K-Dur 10meq Sr Tab) 10 meq AD PRN PO POTASSIUM PROTOCOL 07/12/24 14:30 08/11/24 14:29 Potassium Chloride (K-Dur/Klor-Con 20meq) 10 meq AD PRN PO POTASSIUM PROTOCOL 07/16/24 12:30 08/15/24 12:29 UNV Potassium Chloride (KCl 10% Elixir 20meq/15ml) 10 meq AD PRN PO POTASSIUM PROTOCOL 07/12/24 14:30 07/16/24 12:25 DC 07/16/24 06:07 10 MEQ Potassium Chloride (KCl 10% Elixir 20meq/15ml) 10 meq AD PRN PO POTASSIUM PROTOCOL 07/16/24 12:30 08/15/24 12:29 UNV Sodium Bicarbonate (Sodium Bicarbonate) 650 mg QID PO 07/14/24 17:00 08/13/24 16:59 07/16/24 09:11 650 MG Sodium Chloride 1,000 ml @ 0 mls/hr Q0M IV 07/10/24 11:30 07/12/24 14:13 DC 07/10/24 12:01 1,000 MLS/HR Sodium Chloride 1,000 ml @ 80 mls/hr [id number] IV 07/10/24 16:00 08/09/24 15:59 07/15/24 21:02 80 MLS/HR Sodium Chloride 1,000 ml @ 200 mls/hr Q5H IV 07/11/24 17:30 07/12/24 14:13 DC 07/11/24 20:32 200 MLS/HR Tramadol HCl (UltRAM) 25 mg Q8H5 PO 07/11/24 13:00 07/11/24 10:35 DC Zolpidem Tartrate (AmbIEN) 5 mg HS PRN PO INSOMNIA 07/10/24 16:00 08/09/24 15:59 DIAGNOSTICS / RADIOLOGY: [ ] ASSESSMENT: [ Acute hypoxic respiratory failure S/p fall POA Acute pain to upper, lower back, abdomen, bilateral hips POA Acute cholecystitis per HIDA scan POA S/p cholecystectomy 07/13/2024 Possible choledocholithiasis POA Cholelithiasis as per MRCP 07/13/2024 Uncontrolled hypertension POA Multifactorial anemia POA Thrombocytopenia POA Uncontrolled diabetes mellitus type 2 with hypoglycemia POA Varices per CT abdomen/pelvis POA Distended gallbladder with gallstones per CT abdomen/pelvis POA Diverticulosis per CT abdomen/pelvis POA Debilitation POA Arthritis POA Osteoporosis POA Became this POA Asthma POA Dementia POA ] PLAN: [ Admit to: Medical-surgical floor Consults: Surgeon consulted for cholecystitis, GI for hepatic steatosis Antibiotics: None at this moment Tests: None NEURO: CT head brain negative Chest x-ray showed neoplastic lesions CT chest pending V/Q scan and negative Venous Doppler negative Minimize central acting medications as possible. Fall Precautions. Well lighted room through the day and minimize interruptions through the night to prevent acute delirium. PULMONARY: Chest x-ray minimal pulmonary infiltrate Supplemental 02 as needed BiPAP as necessary, for respiratory distress Titrate Fio2 to keep Spo2 > or = 90% DuoNebs and CPT as needed IS hourly while awake for pulmonary hygiene Out of bed to chair as tolerated VAP Bundle Maintain aspiration precautions at all times CARDIOVASCULAR: Follow hemodynamics. Vital signs per facility protocol GI & NUTRITION: Patient cleared by GI to be discharged home follow up outpatient in 1 to 2 weeks Patient cleared by surgeon s/p cholecystectomy follow up outpatient within 1 to 2 weeks. cholecystectomy 07/13/[address] Cordon MRCP showed the gallbladder is hydropic and there is cholelithiasis. However the gallbladder wall is not thickened and there is no pericholecystic fluid to indicate acute cholecystitis. HIDA scan showed acute cholecystitis CT abdomen/pelvis showed varices, distended gallbladder with gallstones, diverticulosis Continue nutritional support Aspirations precautions Prokinetic agents and laxatives as needed KIDNEYS & ELECTROLYTES: Patient receive 2 g of magnesium Patient received 40 mEq of potassium Strict monitoring of intake and output Daily weights Avoid nephrotoxic agents Monitor electrolytes and replace as needed Goal urine output of 30mL/hr or 0.5mL/kg/hr Medications to be dosed according to renal function. Avoid contrast if possible ENDOCRINE: Maintain blood glucose between 100-180 at all times. Insulin sliding scale for blood glucose management Hypoglycemia and hyperglycemia protocol in place INFECTIOUS DISEASE: Trend temperature, WBC and procalcitonin level Follow cultures, deescalate antibiotics as soon as possible. Panculture if new onset fever HEMATOLOGY & COAGULATION: Monitor H&H. Keep Hgb > 7 Transfuse 1 unit of PRBC for Hgb < 7 Transfuse 1 pack of platelets of platelets < 20, 000 Watch for any signs and symptoms of bleeding SKIN: Pressure ulcer prevention per facility protocol Specialty mattress as needed Bilateral hip x-ray pending Lumbar CT spine showed compression fracture throughout the thoracic spine was at T11 and T12. Age indeterminate Thoracic CT spine showed compression fracture throughout the thoracic spine was at T11 and T12. Age indeterminate Cervical CT spine no fracture seen DJD Treatment plan discussed with patient and family at the bedside Medications to be reconciled once obtained by patient and/or family and available to be reconciled in computer p.r.n. medication for pain nausea and vomiting Questions were answered We will continue to monitor the patient closely Appraiser Art for disposition Rehab: PT/OT GI: PPI DVT: SCD's Code Status: Full Resuscitation Disposition: [facility] Prognosis: Guarded] ATTESTATION BY PHYSICIAN I have seen and examined the patient. I reviewed the documentation, medical decision making, and treatment plan as noted by the mid-level provider above. I agree with the findings and plan of care. GREG SHETH MD, [facility] [employer] July 16, 2024 12:31
[2024-07-16] MEDS: furoSEMIDE 40MG VIAL IV ONE (15:30)
--- NOTE | 2024-07-16 17:00 | NUR ---
CALLED FLOOR NURSE, ADVISED THEM OF PENDING EXAM, SAID THEY WOULD COME, NEVER SHOWED UP
--- NOTE | 2024-07-16 17:02 | NUR ---
[facility] Authorization Notified [facility] Escalation team that plan is for discharge tomorrow and we are pending auth to [facility].
[2024-07-16] MEDS: MAGNESIUM 2GM PREMIX 50ML 50 ML IV PRN (18:32)
[2024-07-16] MEDS: INSULIN humuLIN R 100 UNIT/ML 3ML SQ SCH (18:40)
[2024-07-16] MEDS: PoTASSium chl 10% ELIXIR 20MEQ 20 MEQ/15 ML UDCUP PO PRN (19:48)
[2024-07-17] VITALS (8 sets, daily range): BP systolic 121–160; BP diastolic 52–58; PULSE 88–97; RESP 18–19; TEMP 98.3–98.7; O2SAT 96–100
[2024-07-17 05:06] LABS: BASOPHILS # (AUTO) 0.02 K/uL (0.00-0.20); BASOPHILS % (AUTO) 0.4 % (0.0-5.0); EOSINOPHILS # (AUTO) 0.46 K/uL (0.00-0.70); EOSINOPHILS % (AUTO) 8.1 % (0.0-8.0); HEMATOCRIT 22.3 % (36-48); IMMATURE GRANULOCYTE ABSOLUTE 0.02 K/uL (0-1); LYMPHOCYTES # (AUTO) 1.4 K/uL (1.0-4.8); MEAN CORPUSCULAR HEMOGLOBIN 34.1 pg (27.0-33.0); MEAN CORPUSCULAR HGB CONC 34.1 g/dL (32.0-36.0); MONOCYTES # (AUTO) 0.9 K/uL (0.1-1.0); MONOCYTES % (AUTO) 14.9 % (3.0-13.0); NEUTROPHILS % (AUTO) 52.2 % (40.0-77.0); PLATELET COUNT (AUTO) 128 K/uL (130-400); RED BLOOD CELL COUNT(AUTO) 2.23 MIL/uL (4.00-5.50); RED CELL DISTRIBUTION WIDTH 14.5 % (11.0-15.5); WHITE BLOOD COUNT (AUTO) 5.7 K/uL (4.8-10.8)
[2024-07-17 05:42] LABS: ALBUMIN 1.9 g/dL (3.5-5.0); BILIRUBIN,TOTAL 0.9 mg/dL (0.2-1.0); CREATININE 0.9 mg/dL (0.5-1.0); MAGNESIUM 2.3 mg/dL (1.80-2.40); POTASSIUM 3.9 mmol/L (3.5-5.1)
--- NOTE | 2024-07-17 08:14 | PN ---
GASTROENTEROLOGY PROGRESS NOTE Date of Visit: July 17, 2024 Time of Visit: 08:14 Events / Notes: [ ] Review of Systems: CONSTITUTIONAL: No malaise or change in sensation of wellbeing. ENMT: No rhinorrhea, otorrhea, sinus pain, ear ache. CARDIOVASCULAR: No angina, palpitations, orthopnea or paroxysmal dyspnea. RESPIRATORY: No SOB. GASTROINTESTINAL: No abdominal pain, nausea, vomiting, diarrhea, hematemesis, melena or change in the patient's habitual bowel movements consistency/number. GENITOURINARY: No dysuria, hematuria or change in bladder continence. MUSCULOSKELETAL: No new muscle pain or decrease in muscular strength. No new joint swelling, redness or tenderness. SKIN: No new rash. Physical Exam: GEN: Awake, alert, oriented in person, time and place, and in no acute distress. HEENT: No sinus tenderness. Tympanic membranes were not examined. No rhinorrhea. Oral pharyngeal mucosa is pink, moist and within normal limits. Neck is supple with no cervical lymphadenopathy, thyromegaly or JVD. CHEST: Inspection, palpation and percussion of the chest were unremarkable. Lung auscultation revealed normal breath sounds bilaterally. CARDIAC: PMI is within normal limits. Heart sounds are regular. Normal S1, S2. No gallop or murmur. ABD: Soft, non-tender and not distended. No peritoneal signs on palpation. No organomegaly. Normal bowel sounds. EXT: No cyanosis or clubbing. No edema. SKIN: Intact. No rashes. JOINTS: No evidence of synovitis or acute arthritis. NEURO: Alert and oriented to name, place and person. Cranial nerve examination is unremarkable. No focal motor deficits. Normal speech. Gait is normal. Strength is normal. Vital Signs (last 8hr) Date Time Temp Pulse Resp B/P (MAP) Pulse Ox O2 Delivery O2 Flow Rate FiO2 07/17/24 07:57 98.6 93 18 132/56 96 Room Air 07/17/24 04:00 98.6 91 18 143/52 95 Room Air Laboratory: [ ] Laboratory: Test 07/17/24 05:27 07/17/24 04:34 07/16/24 04:25 07/15/24 17:50 Range/Units Whole Blood Glucose 139 H 70-110 MG/DL White Blood Count 5.7 4.8-10.8 K/uL Red Blood Count 2.23 L 4.00-5.50 MIL/uL Hemoglobin 7.6 L 12.0-16.0 g/dL Hematocrit 22.3 L 36-48 % Mean Corpuscular Volume 100.0 H 79-99 fL Mean Corpuscular Hemoglobin 34.1 H 27.0-33.0 pg Mean Corpuscular Hemoglobin Concent 34.1 32.0-36.0 g/dL Red Cell Distribution Width 14.5 11.0-15.5 % Platelet Count 128 L 130-400 K/uL Mean Platelet Volume 11.3 H 7.5-10.5 fL Immature Granulocyte % (Auto) 0.4 0-1 % Neutrophils (%) (Auto) 52.2 40.0-77.0 % Lymphocytes (%) (Auto) 24.0 21.0-51.0 % Monocytes (%) (Auto) 14.9 H 3.0-13.0 % Eosinophils (%) (Auto) 8.1 H 0.0-8.0 % Basophils (%) (Auto) 0.4 0.0-5.0 % Neutrophils # (Auto) 3.0 1.8-7.7 K/uL Lymphocytes # (Auto) 1.4 1.0-4.8 K/uL Monocytes # (Auto) 0.9 0.1-1.0 K/uL Eosinophils # (Auto) 0.46 0.00-0.70 K/uL Basophils # (Auto) 0.02 0.00-0.20 K/uL Absolute Immature Granulocyte (auto 0.02 0-1 K/uL Nucleated Red Blood Cells 0.0 0.0-0.19 % Sodium Level 139 136-145 mmol/L Potassium Level 3.9 3.5-5.1 mmol/L Chloride Level 106 101-111 mmol/L Carbon Dioxide Level 26 21-32 mmol/L Blood Urea Nitrogen 18 7-18 mg/dL Creatinine 0.9 0.5-1.0 mg/dL Glomerular Filtration Rate Calc 65 >90 mL/min Random Glucose 140 H 70-105 mg/dL Total Calcium 7.9 L 8.5-10.1 mg/dL Magnesium Level 2.30 1.80-2.40 mg/dL Total Bilirubin 0.9 0.2-1.0 mg/dL Aspartate Amino Transf (AST/SGOT) 61 H 10-37 U/L Alanine Aminotransferase (ALT/SGPT) 37 12-78 U/L Alkaline Phosphatase 100 50-136 U/L Total Protein 6.0 6.0-8.3 g/dL Albumin 1.9 L 3.5-5.0 g/dL B-Type Natriuretic Peptide 364 H 0-100 pg/mL D-Dimer Quantitative (PE/DVT) > 95246 *H 0-500 ng/mL Test 07/15/24 17:31 Range/Units Blood Gas Specimen Type Arterial Arterial Blood pH 7.411 7.350-7.450 Arterial Blood Partial Pressure CO2 32 32-45 mmHg Arterial Blood Partial Pressure O2 83.6 83.0-108.0 mmHg Arterial Blood HCO3 20.0 L 21.0-28.0 mmol/L Arterial Blood Oxygen Saturation 95.8 94.0-98.0 % Arterial Blood Base Excess -4.0 L -2.0-3.0 mmol/L Hemoglobin (Blood Gas) 9.0 L 12.0-16.0 g/dL Sodium (Blood Gas) 137 136-145 MMOL/L Bedside Potassium (Blood Gas) 3.7 3.4-4.5 MMOL/L Bedside Chloride (Blood Gas) 110 H 98-107 MMOL/L Bedside Glucose (Blood Gas) 234 H 65-95 MG/DL Bedside Ionized Calcium (Blood Gas) 1.10 L 1.15-1.33 MMOL/L Bedside Lactic Acid (Blood Gas) 3.41 *H 0.36-0.75 MMOL/L Blood Gas Temperature 37.0 35.5-37.0 CELSIUS Blood Gas Flow-by 2.00 0.00-15.00 L/min Blood Gas Vent Mode NC ROOM AIR FiO2 28.0 % Blood Gas Specimen Comment RR VICENTE Current Medications Medications (Trade) Dose Ordered Sig/Daily Route PRN Reason Start Time Stop Time Status Last Admin Dose Admin Acetaminophen (TYLenol 325MG TAB) 650 mg Q4H PRN PO MILD PAIN (1-3) 07/10/24 16:00 08/09/24 15:59 07/16/24 20:04 650 MG Acetaminophen (TYLenol 325MG TAB) 650 mg Q6H PRN PO MILD PAIN (1-3) 07/10/24 16:00 07/12/24 14:13 DC Acetaminophen (TYLenol 325MG TAB) 650 mg Q6H PRN PO TEMPERATURE GREATER THAN 101.5 07/10/24 16:00 08/09/24 15:59 Al Hydroxide/Mg Hydroxide (MAALox PLUS 30ML) 30 ml Q6H PRN PO INDIGESTION 07/10/24 16:00 08/09/24 15:59 Amlodipine Besylate (NorvASC 5MG TAB) 5 mg DAILY PO 07/11/24 09:00 08/10/24 08:59 07/16/24 09:12 5 MG Atorvastatin Calcium (LIPItor 20MG) 20 mg HS PO 07/11/24 21:00 08/10/24 20:59 07/16/24 19:46 20 MG Dextrose (D50w) 50 ml AD PRN IV HYPOGLYCEMIA PROTOCOL 07/10/24 16:00 07/12/24 14:09 DC Dextrose (D50w) 50 ml AD PRN IV HYPOGLYCEMIA PROTOCOL 07/12/24 14:30 07/13/24 13:26 DC Dextrose (D50w) 50 ml AD PRN IV HYPOGLYCEMIA PROTOCOL 07/13/24 13:30 07/16/24 12:25 DC Dextrose (D50w) 50 ml AD PRN IV HYPOGLYCEMIA PROTOCOL 07/16/24 12:30 08/15/24 12:29 Diphenhydramine HCl (BENAdryl INJ) 25 mg Q6H PRN IV SEVERE ITCHING/RASH 07/10/24 16:00 08/09/24 15:59 Famotidine (Pepcid 20mg Vial) 20 mg BID IV 07/10/24 21:00 07/14/24 07:10 DC 07/13/24 21:29 20 MG Famotidine (Pepcid 20mg Vial) 20 mg BID PRN IV NAUSEA/VOMITING 07/10/24 16:00 07/11/24 07:39 DC Famotidine (Pepcid 20mg Vial) 20 mg Q24H IV 07/14/24 21:00 08/09/24 20:59 07/16/24 19:46 20 MG Folic Acid (FOLic ACID 1 MG TABLET) 1 mg DAILY PO 07/11/24 09:00 08/10/24 08:59 07/16/24 09:12 1 MG Glucagon (Glucagon 1mg Kit) 1 mg AD PRN IM HYPOGLYCEMIA PROTOCOL 07/10/24 16:00 07/12/24 14:09 DC Glucagon (Glucagon 1mg Kit) 1 mg AD PRN IM HYPOGLYCEMIA PROTOCOL 07/12/24 14:30 07/13/24 13:26 DC Glucagon (Glucagon 1mg Kit) 1 mg AD PRN IM HYPOGLYCEMIA PROTOCOL 07/13/24 13:30 07/16/24 12:25 DC Glucagon (Glucagon 1mg Kit) 1 mg AD PRN IM HYPOGLYCEMIA PROTOCOL 07/16/24 12:30 08/15/24 12:29 Guaifenesin/ Dextromethorphan (RobiTUSSin DM 200/20MG 10ML) 10 ml Q4H PRN PO COUGH 07/10/24 16:00 08/09/24 15:59 Hydralazine HCl (APRESOLine 20MG INJ) 10 mg Q6H PRN IV For:SBP above 160;DBP above 90 07/10/24 16:00 08/09/24 15:59 07/11/24 04:26 10 MG Hydrochlorothiazide (hydroCHLOROthiazide 25MG) 12.5 mg DAILY PO 07/11/24 09:00 08/10/24 08:59 07/16/24 09:11 12.5 MG Insulin Human Regular (humuLIN R 100 UNIT/ML 3ML) INSULIN SLIDING SCAL... ACHS SQ 07/10/24 16:30 07/12/24 14:09 DC 07/11/24 20:36 2 UNIT Insulin Human Regular (humuLIN R 100 UNIT/ML 3ML) INSULIN SLIDING SCAL... ACHS SQ 07/12/24 16:30 07/13/24 13:26 DC Insulin Human Regular (humuLIN R 100 UNIT/ML 3ML) INSULIN SLIDING SCAL... ACHS SQ 07/13/24 16:30 07/16/24 12:25 DC 07/15/24 20:56 2 UNIT Insulin Human Regular (humuLIN R 100 UNIT/ML 3ML) INSULIN SLIDING SCAL... ACHS SQ 07/16/24 16:30 08/15/24 16:29 07/16/24 18:40 2 UNIT Ketorolac Tromethamine (toRADol) 15 mg Q8H PRN IV MODERATE PAIN (4-6) 07/10/24 16:00 07/15/24 15:59 DC 07/15/24 06:29 15 MG Lactulose (Constulose 20gm/ 30ml Udcup) 20 gm BID PRN PO CONSTIPATION 07/10/24 16:00 08/09/24 15:59 07/15/24 09:27 20 GM Loratadine (LORATAdine 10 mg) 10 mg DAILY PO 07/11/24 09:00 08/10/24 08:59 07/16/24 09:11 10 MG Magnesium Sulfate 50 ml @ 0 mls/hr PROTOCOL IV 07/11/24 07:30 07/12/24 14:13 DC 07/12/24 06:45 25 MLS/HR Magnesium Sulfate 50 ml @ 0 mls/hr PROTOCOL PRN IV other 07/10/24 16:00 08/09/24 15:59 07/16/24 18:32 25 MLS/HR Magnesium Sulfate 50 ml @ 0 mls/hr PROTOCOL PRN IV other 07/12/24 14:30 07/12/24 14:14 DC Magnesium Sulfate 50 ml @ 0 mls/hr PROTOCOL PRN IV other 07/16/24 12:30 07/16/24 12:28 DC Megestrol Acetate (Megace) 400 mg DAILY PO 07/11/24 09:00 08/10/24 08:59 07/16/24 09:11 400 MG Memantine (NAmenDA 5 MG TAB) 5 mg HS PO 07/11/24 21:00 08/10/24 20:59 07/16/24 19:46 5 MG Multivitamins Therapeutic (Multivitamin Tablet) 1 tab DAILY PO 07/11/24 09:00 08/10/24 08:59 07/16/24 09:12 1 TAB Nitroglycerin (Nitrostat) 0.4 mg PROTOCOL PRN SL CHEST PAIN 07/10/24 16:00 08/09/24 15:59 Ondansetron HCl (zoFRAN 4MG INJ) 4 mg Q6H PRN IV NAUSEA/VOMITING 07/10/24 16:00 08/09/24 15:59 Oxycodone/ Acetaminophen (perCOCET) 1 tab Q6H PRN PO SEVERE PAIN (7-10) 07/10/24 16:00 07/15/24 18:59 DC 07/14/24 10:06 1 TAB Piperacillin Sod/ Tazobactam Sod (Zosyn 3.375gm+NS 50ml) 3.375 gm Q8H IV 07/11/24 06:00 07/11/24 05:50 DC Piperacillin Sod/ Tazobactam Sod (Zosyn 3.375gm+NS 50ml) 3.375 gm Q8H IV 07/11/24 07:00 07/21/24 06:59 07/17/24 06:38 3.375 GM Potassium Chloride 100 ml @ 100 mls/hr AD PRN IV POTASSIUM PROTOCOL 07/12/24 14:30 07/16/24 12:25 DC Potassium Chloride 100 ml @ 100 mls/hr AD PRN IV POTASSIUM PROTOCOL 07/16/24 12:30 08/15/24 12:29 Potassium Chloride (K-Dur 10meq Sr Tab) 10 meq AD PRN PO POTASSIUM PROTOCOL 07/12/24 14:30 08/11/24 14:29 Potassium Chloride (K-Dur/Klor-Con 20meq) 10 meq AD PRN PO POTASSIUM PROTOCOL 07/16/24 12:30 07/16/24 12:28 DC Potassium Chloride (KCl 10% Elixir 20meq/15ml) 10 meq AD PRN PO POTASSIUM PROTOCOL 07/12/24 14:30 07/16/24 12:25 DC 07/16/24 06:07 10 MEQ Potassium Chloride (KCl 10% Elixir 20meq/15ml) 10 meq AD PRN PO POTASSIUM PROTOCOL 07/16/24 12:30 08/15/24 12:29 07/16/24 19:48 10 MEQ Sodium Bicarbonate (Sodium Bicarbonate) 650 mg QID PO 07/14/24 17:00 08/13/24 16:59 07/16/24 19:46 650 MG Sodium Chloride 1,000 ml @ 0 mls/hr Q0M IV 07/10/24 11:30 07/12/24 14:13 DC 07/10/24 12:01 1,000 MLS/HR Sodium Chloride 1,000 ml @ 80 mls/hr [id number] IV 07/10/24 16:00 08/09/24 15:59 07/16/24 15:22 80 MLS/HR Sodium Chloride 1,000 ml @ 200 mls/hr Q5H IV 07/11/24 17:30 07/12/24 14:13 DC 07/11/24 20:32 200 MLS/HR Tramadol HCl (UltRAM) 25 mg Q8H5 PO 07/11/24 13:00 07/11/24 10:35 DC Zolpidem Tartrate (AmbIEN) 5 mg HS PRN PO INSOMNIA 07/10/24 16:00 08/09/24 15:59 Diagnostics / Radiology: [COPY/PASTE HERE IF NO REPORTS PLEASE DELETE SECTION] Assessment: [ ] Plan: Continue GI prophylaxis Advance diet as tolerated Avoid NSAIDs Antireflux measures Monitor H&H and transfuse as needed Call with questions, concerns or change in clinical status Patient to follow-up at clinic post discharge Thank you for this consult AIME COLÓN SCRAP PREPARER July 17, 2024 08:14
--- NOTE | 2024-07-17 08:34 | HMCIMG ---
CT NONCONTRAST CHEST Comparison Study: none History: neoplastic disease Technique: Helical CT of the chest without IV contrast at 5 mm collimation. Coronal and sagittal reformations also done. CT Dose Index (CTDI): 2.38 mGy Dose Length Product (DLP): 94.8 total mGy-cm Findings: The airway is intact. The trachea and major bronchi are unremarkable. The chest exam shows no pulmonary nodules or masses. No significant pulmonary parenchymal abnormalities are noted. No pulmonary infiltrates or mass lesions are seen. There are bilateral small pleural effusions and there are passive atelectatic changes of the lung bases bilaterally. There is no pneumothorax. There is no evidence of pneumomediastinum. The nonenhanced exam of the kenneth and mediastinum is unremarkable. No evidence of hilar enlargement is seen. The aorta shows no aneurysmal dilatation or significant atheromatous calcification. No significant brachiocephalic vascular abnormalities are seen. The heart is unremarkable. It is not enlarged. No significant coronary arterial calcifications are seen. There is no pericardial effusion. The rib cage appears unremarkable. The soft tissues of the chest wall are unremarkable. The dorsal spine shows no significant abnormalities. Upper abdomen demonstrates ascites as well as apparent status post cholecystectomy. IMPRESSION: Bilateral small pleural effusions with bilateral basilar passive atelectasis. No neoplastic lesions identified. This study was performed using dose reduction techniques to include automated exposure control and/or adjustment of the mA and/or kV according to patient size.
[2024-07-17] MEDS: acetaMINOPHEN 325 MG TAB PO PRN (09:40)
--- NOTE | 2024-07-17 14:13 | DS ---
Discharge Summary Hospital Course Summary: DATE OF ADMISSION:[07/10/2024] DATE OF DISCHARGE:[07/17/2024] DISPOSITION:[snf] CONDITION:[Medically cleared] CONSULTANTS:[Surgeon, GI] FOLLOW UP APPOINTMENTS:[GI 1 to 2 weeks. Surgeon within 1 to 2 weeks] PROCEDURES:[Cholecystectomy 07/14/[address] Cordon] IMAGING: report attached to summary MICROBIOLOGY: report attached to summary ACTIVITY:[One-person assist] HOME MEDICATIONS: see med recc NEW MEDICATIONS:[See med rec] EMERGENCY INSTRUCTIONS: The patient was instructed to present to the nearest Emergency departmentr or call 911 once their symptoms will return or worsen Channeler(s): Patient is 79 years old female who came to emergency department via [facility] Patient was complaining of headaches, upper and lower back pain , abdominal pain and bilateral hip pain. CT head brain was performed and was negative. Cervical, thoracic and lumbar CT spine was performed and showed compression fracture of T11 and T12. Bilateral hip x-ray was performed and was negative. CT abdomen/pelvis shows cirrhosis, portal venous hypertension and cholecystitis. MRCP was performed to rule out for choledocholithiasis and was negative. Patient was still complaining of severe abdominal pain patient received medical clearance and Dr. Cordon performed cholecystectomy on 0 07/14/2024. After surgery patient developed shortness of breaths and cough. Patient was placed on oxygen 2 L nasal cannula. chest x-ray was performed showed neoplastic lesions was recommended to perform CT chest which came back negative for any neoplastic disease. Venous Doppler was performed was negative. V/Q scan was performed was negative. Patient was placed on furosemide 20 mg bid on discharge. WBC 5.7 H&H stable. Patient denies any shortness of breath, chest pain, nausea, vomiting or any other discomfort. Family at the bedside stated that patient feels much better today and that is able to transferred with last complain of the pain. Patient is cleared to be discharged to SNF once insurance approved. Follow-up outpatient with the PCP 2 to 3 days. Follow up with GI within 1 to 2 weeks. Follow up with surgeon outpatient in 1 to 2 weeks. Procedure(s): REVIEW OF SYSTEMS CONSTITUTIONAL: Denies fevers, chills, or night sweats. No unintentional weight loss reported. NEUROLOGICAL: Denies headache, amaurosis fugax, motor weakness, sensory deficit, vertigo/spinning sensation, gait abnormalities, or tremors. ENT: No hearing loss, otalgia, otorrhea, rhinitis, rhinorrhea, hoarseness, or sore throat. CARDIOVASCULAR: Denies any exertional angina, dyspnea on exertion, orthopnea, paroxysmal nocturnal dyspnea, palpitations, life-threatening arrhythmias, claudication. PULMONARY: Denies any shortness of breath, cough, phlegm/sputum, hemoptysis, pleuritic chest pain. SLEEP: Denies morning headaches, daytime somnolence or napping. Denies difficulty falling asleep, staying asleep, waking from sleep. Denies knowledge of snoring. GASTROINTESTINAL: Denies any type of dysphagia to either liquids or solids. Denies nausea, vomiting, pyrosis, early satiety, diarrhea, constipation, or changes in stool consistency or caliber. Denies coffee-ground emesis, hematemesis, hematochezia, or melanotic stools. Denies any abdominal pain GENITOURINARY: Denies frequency, urgency, nocturia, hematuria or incontinence (Storage/Irritative symptoms.) Low urinary stream, straining to void, urinary intermittency or hesitancy, splitting of the voiding stream, terminal dribbling. ENDOCRINOLOGIC: Denies polyuria, polydipsia, polyphagia or heat/cold intolerances. HEMATOLOGIC: Denies thrombophilia/previous clots, or coagulopathy/bleeding disorders. ONCOLOGIC: Denies personal history of malignancy. DERMATOLOGIC: Denies rashes or pruritus. PSYCHIATRIC: Denies any suicidal or homicidal ideation. Denies hallucinations. PHYSICAL EXAM GENERAL APPEARANCE: The patient is awake, alert, and oriented, in no acute cardiopulmonary distress. NEUROLOGICAL: Cranial nerves II-XII grossly intact. Motor is 5/5 in bilateral upper and lower extremities proximal to distal. No sensory deficits. Patient denies any headaches. Patient denies of abdominal pain. Patient complains of bilateral hip pain, but has improved from the day of admission HEENT: Face is symmetric. Pupils are equal and reactive. Extraocular movements are intact. NECK: Supple. No JVD. No thyromegaly. No submental, submandibular, pre- /postauricular, occipital or supraclavicular lymphadenopathy. CHEST: Normal chest expansion. No Telemetry. LUNGS: Absence of any rales, rhonchi or any wheezing. CARDIOVASCULAR: Regular. S1 and S2 normal. No appreciable rubs, murmurs or gallops. ABDOMEN: Soft, nontender, and nondistended. There is no rebound, voluntary guarding, or rigidity. : Deferred. No Chavez. EXTREMITIES: Non-edematous and not cyanotic. No clubbing. Good capillary refill. SKIN: No skin breakdown. Assessment/Plan: ASSESSMENT: [ Acute hypoxic respiratory failure S/p fall POA Acute pain to upper, lower back, abdomen, bilateral hips POA Acute cholecystitis per HIDA scan POA S/p cholecystectomy 07/13/2024 Possible choledocholithiasis POA Cholelithiasis as per MRCP 07/13/2024 Uncontrolled hypertension POA Multifactorial anemia POA Thrombocytopenia POA Uncontrolled diabetes mellitus type 2 with hypoglycemia POA Varices per CT abdomen/pelvis POA Distended gallbladder with gallstones per CT abdomen/pelvis POA Diverticulosis per CT abdomen/pelvis POA Debilitation POA Arthritis POA Osteoporosis POA Became this POA Asthma POA Dementia POA ] PLAN: [ Admit to: Medical-surgical floor Consults: Surgeon consulted for cholecystitis, GI for hepatic steatosis Antibiotics: None at this moment Tests: None NEURO: CT head brain negative Chest x-ray showed neoplastic lesions CT chest pending V/Q scan and negative Venous Doppler negative Minimize central acting medications as possible. Fall Precautions. Well lighted room through the day and minimize interruptions through the night to prevent acute delirium. PULMONARY: Chest x-ray minimal pulmonary infiltrate Supplemental 02 as needed BiPAP as necessary, for respiratory distress Titrate Fio2 to keep Spo2 > or = 90% DuoNebs and CPT as needed IS hourly while awake for pulmonary hygiene Out of bed to chair as tolerated VAP Bundle Maintain aspiration precautions at all times CARDIOVASCULAR: Follow hemodynamics. Vital signs per facility protocol GI & NUTRITION: Patient cleared by GI to be discharged home follow up outpatient in 1 to 2 weeks Patient cleared by surgeon s/p cholecystectomy follow up outpatient within 1 to 2 weeks. cholecystectomy 07/13/[address] Cordon MRCP showed the gallbladder is hydropic and there is cholelithiasis. However the gallbladder wall is not thickened and there is no pericholecystic fluid to indicate acute cholecystitis. HIDA scan showed acute cholecystitis CT abdomen/pelvis showed varices, distended gallbladder with gallstones, diverticulosis Continue nutritional support Aspirations precautions Prokinetic agents and laxatives as needed KIDNEYS & ELECTROLYTES: Patient receive 2 g of magnesium Patient received 40 mEq of potassium Strict monitoring of intake and output Daily weights Avoid nephrotoxic agents Monitor electrolytes and replace as needed Goal urine output of 30mL/hr or 0.5mL/kg/hr Medications to be dosed according to renal function. Avoid contrast if possible ENDOCRINE: Maintain blood glucose between 100-180 at all times. Insulin sliding scale for blood glucose management Hypoglycemia and hyperglycemia protocol in place INFECTIOUS DISEASE: Trend temperature, WBC and procalcitonin level Follow cultures, deescalate antibiotics as soon as possible. Panculture if new onset fever HEMATOLOGY & COAGULATION: Monitor H&H. Keep Hgb > 7 Transfuse 1 unit of PRBC for Hgb < 7 Transfuse 1 pack of platelets of platelets < 20, 000 Watch for any signs and symptoms of bleeding SKIN: Pressure ulcer prevention per facility protocol Specialty mattress as needed Bilateral hip x-ray pending Lumbar CT spine showed compression fracture throughout the thoracic spine was at T11 and T12. Age indeterminate Thoracic CT spine showed compression fracture throughout the thoracic spine was at T11 and T12. Age indeterminate Cervical CT spine no fracture seen DJD Treatment plan discussed with patient and family at the bedside Medications to be reconciled once obtained by patient and/or family and available to be reconciled in computer p.r.n. 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8 Mg Capsule, 0.8 MG PO DAILY, CAP 07/10/24 Metformin HCl (Metformin HCl) 1,000 Mg Tablet, 1000 MG PO BID, TAB 07/10/24 Rosuvastatin Calcium (Rosuvastatin Calcium) 5 Mg Tablet, 5 MG PO HS, TAB 07/10/24 Memantine HCl (Memantine HCl) 5 Mg Tablet, 5 MG PO HS, TAB 07/10/24 Discontinued Reported Medications Montelukast Sodium (Montelukast Sodium) 10 Mg Tablet, 10 MG PO DAILY, TAB 04/30/19 Lisinopril (Lisinopril) 20 Mg Tablet, 20 MG PO DAILY, TAB 04/30/19 Discontinued Scripts Oseltamivir Phosphate (Tamiflu) 30 Mg Capsule, 30 MG PO DAILYBKFST for 5 Days, #5 CAP Prov:ZINA PERRY MD 05/01/19 Cephalexin Monohydrate (Keflex) 500 Mg Cap, 500 MG PO TID for 5 Days, #15 CAP Prov:ZINA PERRY MD 05/01/19 Time spent arranging discharge: 31-60 minutes ATTESTATION BY PHYSICIAN I have seen and examined the patient. I reviewed the documentation, medical decision making, and treatment plan as noted by the mid-level provider above. I agree with the findings and plan of care. GREG LARA MD, KAT[employer]YNA [employer] CONSULTANT July 17, 2024 14:13
[2024-07-17] MEDS: furoSEMIDE 40MG VIAL IV ONE (14:34)
--- NOTE | 2024-07-17 19:49 | NUR ---
SHIFT NOTE Patient is status post PEG tube placement on 07/13/24. Tolerating goal rate of 45ml/hr. Bolus feeding with water flushes to initiate this evening per orders. Diet has advanced to include pleasure feedings. Patient is anticipated to discharge to [facility] tomorrow 07/18/2024.
[2024-07-17] MEDS: furoSEMIDE 20 MG TABLET PO SCH (20:55)
[2024-07-18 00:27] VITALS: BP 151/59; PULSE 94; RESP 16; TEMP 99.3
--- NOTE | 2024-07-18 02:48 | NUR ---
nurse note patient alert and oriented times 3. son at bedside. plan of care discussed with them and they verbalized understanding. patient has no pain tonight. edith Cobian and I change her and move her on her sides to prevent skin breakdown. I gave her prune juice to stimulate her bowels. Patient takes 1 medication po at a time with water and does not cough or show signs of aspiration. She is on 1 liter of oxygen via nasal cannula sating at 100%. We worked on her incentive spirometer and she did 1,000. She has slept about 6 hours tonight. Call light within reach, bed alarm on, 2 side rails up. will continue to monitor patient.
[2024-07-18 04:13] VITALS: BP 160/66; PULSE 94; RESP 18; TEMP 98.6
[2024-07-18 07:55] VITALS: BP 169/65; PULSE 96; RESP 20; TEMP 98.1
[2024-07-18 08:00] VITALS: O2SAT 99
[2024-07-18] MEDS: guaiFENesin-DM 200/20MG 10ML PO PRN (09:30)
[2024-07-18 12:50] VITALS: BP 178/73; PULSE 93; RESP 16; TEMP 98.1
--- NOTE | 2024-07-18 13:00 | NUR ---
CALLED [facility] FOR EMS TRANSPORT Spoke with Neptali. Faxed over the following documents with fax confirmation of receipt at 13:14. 1. Face Sheet 2. Order for service ([facility]) 3. H&P
--- NOTE | 2024-07-18 13:17 | NUR ---
REPORT Called Ana María Umanzor [facility] for transfer of care report. Received by nurse, Shelley
--- NOTE | 2024-07-18 13:33 | NUR ---
REPORT CALLED TO JUAN RAMON MEDINA EDWARDS Report received by Shelley. Medication reconciliation faxed to [phone] with confirmation of receipt at 13:30. Extension provided for any questions or further information.
--- NOTE | 2024-07-18 16:04 | NUR ---
[facility] [phone] PATIENT ACCEPTED. CHEL LET MD AND NURSE KNOW. EMS SET UP. PACKET MADE AND SENT TO [facility] PATIENT CAME FROM [facility] IS THERE. PATIENT ALSO HAS DEMENTIA AND IS NOT FULLY ORIENTED. ALREADY FELL AT FACILITY FOR PATIENT SAFETY EMS SET UP. NO PASRR NEEDED PER REP. Addendum: 07/18/24 at 1608 by STEPHANI LAY RN CM Amended: Links added.
--- NOTE | 2024-07-18 17:44 | NUR ---
DISCHARGE NOTE IV and ID bands removed. Personal belongings packed and taken on stretcher. Discharge medications, instructions, and follow up appointments read and reviewed with patient. Patient transported via stretcher by EMS for non-emergent transfer. Son, Wolf Crockett contacted via telephone to notify that Mrs. Dupree is in route to [facility] in [place].
== END 2024-07-18 17:45 | DRG 417 ==
LOC: EDH 10:28 → EDHIP 15:50 → 4BH 21:53
PROVIDERS: ADMIT Internal Medicine; ATTEND Internal Medicine
PROC: 0FT44ZZ Resection of Gallbladder, Percutaneous Endoscopic Approach (ICD-10-PCS; principal; 2024-07-13 13:11)
DX: K80.00 Calculus of gallbladder with acute cholecystitis without obstruction (principal); J96.01 Acute respiratory failure with hypoxia; K82.1 Hydrops of gallbladder; D64.9 Anemia, unspecified; M81.0 Age-related osteoporosis without current pathological fracture; D69.6 Thrombocytopenia, unspecified; E11.649 Type 2 diabetes mellitus with hypoglycemia without coma; M54.50 Low back pain, unspecified; F03.90 Unspecified dementia, unspecified severity, without behavioral disturbance, psychotic disturbance, mood disturbance, and anxiety; E78.00 Pure hypercholesterolemia, unspecified; I10 Essential (primary) hypertension; K57.30 Diverticulosis of large intestine without perforation or abscess without bleeding; J45.909 Unspecified asthma, uncomplicated; Z88.8 Allergy status to other drugs, medicaments and biological substances; Z99.81 Dependence on supplemental oxygen
CPT/HCPCS: 36415; 36600; 70450; 71045; 71250; 72125; 72128; 72131; 73521; 74176; 74177; 74181; 78227; 78582; 80048; 80053; 80076; 81001; 82435; 82550; 82803; 82947; 82948; 83036; 83605; 83735; 83880; 84132; 84145; 84295; 84484; 85018; 85025; 85027; 85378; 85610; 85730; 87086; 87804; 88304; 93005; 93970; 96360; 99285; A9537; A9540; A9558; G0378; J0360; J1815; J1885; J1938; J2270; J2371; J2405; J2543; J2704; J2710; J3010; J3475; J3490; J7030; Q9967; A4216; A4222; A4223; A4600; A4649; C1769; J0665; S8037